=== PATIENT | female | born 1935 | race Caucasian/White ===

== ENCOUNTER 2019-08-23 12:16 | Inpatient (IN) | payer OTHER, SELFPAY ==
[2019-08-23] VITALS (8 sets, daily range): BP systolic 118–172; BP diastolic 65–90; PULSE 58–72; RESP 12–22; TEMP 36.5–36.7; O2SAT 94–100; BMI 26.1
--- NOTE | ~2019-08-23 | XR_ITS ---
EXAMINATION: XR chest 1V portable DATE: 08/26/2019 12:44 INDICATION: Decreased oxygen saturation. TECHNIQUE: A single frontal view of the chest was obtained. COMPARISON: Chest single view 08/23/2019, CT abdomen and pelvis 08/25/2019 FINDINGS: There are small pleural effusions. There is mild atelectasis at the lung bases. No pneumoth orax. The heart size is normal. There is a small hiatal hernia. There are changes of vertebroplasty a t T12. IMPRESSION: 1. Small pleural effusions. 2. Mild atelectasis at the lung bases. 3. Small hiatal hernia. Reviewed, dictated and finalized at location A.
--- NOTE | ~2019-08-23 | XR_ITS ---
EXAMINATION: XR chest 1V portable EXAM DATE: 08/23/2019 22:45 INDICATION: Left hip fracture. Preoperative. TECHNIQUE: Portable AP frontal chest x-ray was obtained. Comparison is made to prior examination from 02/02/2019. FINDINGS: Patient is rotated to the right. The lungs are clear. There are no pleural effusions. Car diac silhouette is prominent but magnified on this AP technique. There is no pneumothorax suspected . Apparent spine curvature at least partly positional. IMPRESSION: No acute cardiopulmonary findings. Reviewed, dictated and finalized at location A.
--- NOTE | ~2019-08-23 | XR_ITS ---
EXAMINATION: XR hip LT 2V w AP pelvis DATE: 08/23/2019 12:57 INDICATION: Left hip pain. TECHNIQUE: An anteroposterior view of the pelvis and 2 views of left hip were obtained. COMPARISON: Hip radiographs 03/31/2014 FINDINGS: There is dextroscoliosis and severe spondylosis of lumbar spine. There are changes of verte broplasty at T12. There is a subcapital fracture of left femoral neck. The distal fracture fragment d emonstrates 30 degrees varus angulation, 1.5 cm shortening, and 10 mm anterior displacement. There is moderate osteoarthritis of the hips. IMPRESSION: 1. Acute subcapital fracture of left femoral neck. 2. Moderate osteoarthritis of the hips. Reviewed, dictated and finalized at location A.
--- NOTE | ~2019-08-23 | XR_ITS ---
XR lumbar spine 2-3V DATE: 08/23/2019 12:58 INDICATION: Injury, pain TECHNIQUE: AP, crosstable lateral views COMPARISON: 11/21/2014 lumbar spine 05/25/2018 lumbar spine radiographs are not available from PACS at this time. 06/01/2018 MRI lumbar spine FINDINGS: Diffuse severe osteopenia. Rotatory dextroscoliosis of the lumbar spine. Again noted is stable mild anterior wedge compression fracture deformity of T11. Again noted is severe burst fracture deformity of T12 with vertebroplasty. Degenerative disc disease is again noted at multiple levels. Grade 1 anterolisthesis is again noted at L5-S1. Since 06/01/2018 there is moderately prominent anterior wedge compression fracture deformity of L1. The sacroiliac joints are unremarkable. IMPRESSION: New anterior wedge compression fracture deformity of L1 since 06/01/2018 Stable compression fracture deformity of T11 Chronic burst fracture of T12, with vertebroplasty Diffuse severe osteopenia Rotatory dextroscoliosis of the lumbar spine Reviewed, dictated and finalized at location A. IMPRESSION: New anterior wedge compression fracture deformity of L1 since 019 Stable compression fracture deformity of T11 Chronic burst fracture of T12, with vertebroplasty Diffuse severe osteopenia Rotatory dextroscoliosis of the lumbar spine
--- NOTE | ~2019-08-23 | CT_ITS ---
EXAMINATION: CT abdomen pelvis wo con DATE: 08/25/2019 01:32 INDICATION: Left upper quadrant pain after traumatic fall TECHNIQUE: Computed tomography (CT) of the abdomen and pelvis was performed without intravenous contr ast. The dose-length product was 863.21 mGy-cm. Automated exposure control and iterative reconstructi on technique were employed. COMPARISON: CT dated 08/16/2018 FINDINGS: There is bilateral lower lobe atelectasis/scarring. Small right pleural effusion. Cardiomeg florentino. Atherosclerosis. Moderate size hiatal hernia. There is dependent high density material in the gallbladder which may represent sludge or stones. The re is a Ordaz catheter in the bladder which is collapsed. There is a left total hip arthroplasty. Sta ble vertebroplasty changes of T12 with extrusion of methacrylate into the spinal canal. Advanced dege nerative changes of the lumbar spine with interval development of L1 superior endplate fracture. Nono bstructive bowel gas pattern. Nonobstructing stone in the left renal pelvis. No significant hydroneph rosis. No abnormal pelvic masses or fluid collections. Moderate colonic fecal loading. The liver, spl een, pancreas, adrenal glands unremarkable. IMPRESSION: 1. Interval development of superior endplate fracture of L1 or examination. 2: Bilateral lower lobe atelectasis/scarring with small right effusion. 3: High density material in the gallbladder which may represent sludge or stones. 4: Nonobstructing left nephrolithiasis. 5: Moderate size hiatal hernia. Vision radiologist verbally discussed this case with clinician as per documentation in their report, which was faxed and scanned into PACS with this exam. Reviewed, dictated and finalized at location A. IMPRESSION: 1. Interval development of superior endplate fracture of L1 or examinat ion. 2: Bilateral lower lobe atelectasis/scarring with small right effusion. 3: High density material in the gallbladder which may represent sludge or stone s. 4: Nonobstructing left nephrolithiasis. 5: Moderate size hiatal hernia. Vision radiologist verbally discussed this case with clinician as per documenta tion in their report, which was faxed and scanned into PACS with this exam.
--- NOTE | ~2019-08-23 | XR_ITS ---
EXAMINATION: XR hip LT 1V DATE: 08/24/2019 13:42 INDICATION: Left hip arthroplasty TECHNIQUE: AP views left hip FINDINGS: There is a left bipolar hip arthroplasty in expected position. Subcutaneous gas with soft tissue swelling are consistent with recent surgery. IMPRESSION: 1. Recent left bipolar hip arthroplasty. Reviewed, dictated and finalized at location A.
--- NOTE | ~2019-08-23 | CT_ITS ---
EXAMINATION: CT brain wo con DATE: 08/23/2019 12:46 INDICATION: Head injury. TECHNIQUE: Computed tomography (CT) of the head was performed without intravenous contrast. The mA wa s adjusted according to patient size. Iterative reconstruction technique was employed. The dose-lengt h product was 681.00 mGy-cm. COMPARISON: Head CT 10/24/2014 FINDINGS: There are scattered areas of low attenuation in the cerebral white matter. There is no intr acranial hemorrhage, acute infarction, or abnormal intracranial mass lesion. The ventricles are malika l in size. There is mild mucosal thickening in the paranasal sinuses. There are likely changes of ocu lar lens replacement surgeries. The mastoid air cells are normal. IMPRESSION: 1. Worsened extensive nonspecific cerebral white matter disease, which likely represents chronic smal l vessel ischemic disease. Reviewed, dictated and finalized at location A. IMPRESSION: 1. Worsened extensive nonspecific cerebral white matter disease, which likely r epresents chronic small vessel ischemic disease.
--- NOTE | ~2019-08-23 | CT_ITS ---
EXAMINATION: CT facial bones wo con DATE: 08/25/2019 01:32 INDICATION: Face injury. TECHNIQUE: Computed tomography (CT) of the facial bones and maxillofacial region was performed withou t intravenous contrast. Automated exposure control and iterative reconstruction technique were employ ed. The dose-length product was 319.32 mGy-cm. COMPARISON: Head CT 08/23/2019 FINDINGS: There are likely changes of ocular lens replacement surgeries. There is mild mucosal thicke alesia in sphenoid sinus and the maxillary sinuses. There is kyphosis and severe spondylosis of cervica l spine. There is leftward deviation of the nasal septum. No fracture. IMPRESSION: 1. No fracture. Reviewed, dictated and finalized at location A. IMPRESSION: 1. No fracture.
--- NOTE | ~2019-08-23 | CT_ITS ---
EXAMINATION: CT cervical spine wo con DATE: 08/23/2019 12:46 INDICATION: Head injury. TECHNIQUE: Computed tomography (CT) of the cervical spine was performed without intravenous contrast. Automated exposure control and iterative reconstruction technique were employed. The dose-length pro duct was 133.60 mGy-cm. COMPARISON: Cervical spine CT 10/24/2014 FINDINGS: There is kyphosis of cervical spine. There is 3 mm anterolisthesis of C3 on C4 and C4 on C5 . Vertebral body heights are normal. There is mildly decreased disc height at C2-C3 and C3-C4 and sev erely decreased disc height from C4-C5 through C6-C7. The following disc levels are specifically disc ussed: C2-C3: There is no uncovertebral joint osteoarthritis. There is moderate right and severe left facet joint osteoarthritis. There is mild left neural foraminal stenosis. There is no central canal stenosi s. C3-C4: There is mild right uncovertebral joint osteoarthritis. There is ankylosis of the facet joints with mild hypertrophy. There is no neural foraminal stenosis. There is no central canal stenosis. C4-C5: There is severe bilateral uncovertebral joint osteoarthritis. There is severe right and modera te left facet joint osteoarthritis. There is mild bilateral neural foraminal stenosis. There is mild central canal stenosis. C5-C6: There is severe bilateral uncovertebral joint osteoarthritis. There is mild right and severe l eft facet joint osteoarthritis. There is moderate right and mild left neural foraminal stenosis. Ther e is mild central canal stenosis. C6-C7: There is severe bilateral uncovertebral joint osteoarthritis. There is mild bilateral facet miles int osteoarthritis. There is mild right and moderate left neural foraminal stenosis. There is mild ce ntral canal stenosis. C7-T1: There is no uncovertebral joint osteoarthritis. There is moderate right and severe left facet joint osteoarthritis. There is no neural foraminal stenosis. There is no central canal stenosis. IMPRESSION: 1. No fracture. 2. Severe cervical spondylosis. Reviewed, dictated and finalized at location A.
[2019-08-23] MEDS: MORPHINE SULFATE 4 MG/ML INJ IV PUSH ×2 (12:31→20:56)
[2019-08-23 12:39] LABS: Basophils Percent Auto 0.1 % (0.2-1.2); Eosinophils Absolute Auto 0.1 K/mm3 (0-0.3); Eosinophils Percent Auto 0.9 % (0-4.4); Hematocrit 42.2 % (37.0-47.0); Hemoglobin 13.9 g/dL (12.0-15.0); Immature Granulocyte Absolute 0.03 K/mm3 (0.00-0.031); Immature Granulocyte Percent A 0.4 % (0-0.5); Lymphocytes Absolute Auto 1.32 K/mm3 (0.9-3.2); Lymphocytes Percent Auto 19.1 % (18.3-44.2); Mean Corpuscular HGB Conc 32.9 g/dl (32-36); Mean Corpuscular Hemoglobin 29.9 pg (26-34); Mean Corpuscular Volume 90.8 fl (80-100); Mean Platelet Volume 9.1 fl (7.4-10.4); Monocytes Absolute Auto 0.5 K/mm3 (0.1-0.6); Monocytes Percent Auto 7.8 % (2.6-8.5); Neutrophils Percent Auto 71.7 % (45.5-73.1); Platelet Count Result 248 k/mm3 (150-375); Red Blood Count 4.65 M/mm3 (4.2-5.4); Red Cell Distribution Width 13.5 % (11.5-14.5); White Blood Count 6.9 K/mm3 (4.5-10.0)
--- NOTE | 2019-08-23 12:47 | ECG_ITS ---
Measurements Intervals [place] Rate: 63 P: 67 AL: 170 QRS: -36 QRSD: 106 T: 64 QT: 405 QTc: 415 Interpretive Statements SINUS RHYTHM LEFT AXIS DEVIATION POOR R WAVE PROGRESSION, ANTERIOR LEADS BORDERLINE ST-T WAVE ABNORMALITY- ANTEROLAT/LAT LEADS BASELINE ARTIFACT- I, II, III, AVR, AVL, AVF BORDERLINE ECG Electronically Signed On 08-23-2019 16:21:52 CDT by Israel Martinez D.O.
[2019-08-23 12:54] LABS: Blood Urea Nitrogen 17 mg/dL (7-17); Carbon Dioxide 33 mmol/L (22-30); Chloride 93 mmol/L (98-107); Estimated CRCL calculation 55 ml/min; Estimated Glomerular Filt Rate > 60; Glucose 134 mg/dL (65-105); Potassium 3.8 mmol/L (3.4-5.0); Sodium 133 mmol/L (137-145)
[2019-08-23 14:09] LABS: Add Urine Microscopic? NO; Appearance Urine Clear (Clear); Bilirubin Urine Negative (Negative); Blood Urine Negative (Negative); Color Urine Yellow (Yellow); Glucose Urine UA Negative (Negative); Ketones Urine Negative (Negative); Leukocyte Esterase Ur Negative LEU/UL (Negative); Nitrate Urine Negative (Negative); Protein Urine Negative (Negative); Specific Grav Ur 1.008 (1.001-1.035); Urobilinogen Urine Negative mg/dL (<2.0)
--- NOTE | 2019-08-23 14:10 | ED.GENADULT ---
HPI - General Adult General Chief complaint: Fall Stated complaint: Fall - Left hip pain Time Seen by Provider: 08/23/19 12:25 History of Present Illness HPI narrative: Patient is an 83-year-old female who presents ER status post fall. Patient reports she just lost her balance when she fell down backwards landing on her hip and striking her head. She did not lose consciousness. She is in a c-collar. Patient cannot move her lower extremity without significant pain. She has no new numbness or tingling in her lower extremities since the fall. She does have an increase in low back pain. She has history of chronic back pain for which she takes morphine. No incontinence or saddle anesthesia. Related Data Home Medications Medication Instructions Recorded Confirmed amlodipine 10 mg PO DAILY 08/23/19 calcium carb-vit D3-magnesium 08/23/19 carboxymethylcellulose-glycern drp 08/23/19 [Refresh Optive] cyclosporine [Restasis] 08/23/19 fish [id number] C-vit E 08/23/19 fluticasone propionate [Flonase 1 spray INTRANASAL DAILY 08/23/19 08/23/19 Allergy Relief] furosemide 20 mg PO BID 08/23/19 levothyroxine 75 mcg PO DAILY 08/23/19 losartan 100 mg PO DAILY 08/23/19 magnesium hydroxide 15 ml PO HS PRN 08/23/19 metolazone 5 mg PO DAILY 08/23/19 metoprolol tartrate 50 mg PO Q12H 08/23/19 morphine 30 mg PO Q12H 08/23/19 pantoprazole 40 mg PO QAM 08/23/19 08/23/19 prednisone 10 mg PO DAILY 08/23/19 08/23/19 trifluoperazine 2 mg PO DAILY 08/23/19 08/23/19 vit A,C and K-wjdpap-zewngwxf 1 tablet PO DAILY 08/23/19 08/23/19 [Ocuvite with Lutein] Allergies Allergy/AdvReac Type Severity Reaction Status Date / Time No Known Allergies Allergy Unverified 08/16/18 12:09 Review of Systems Review of Systems: All systems reviewed & are unremarkable except as noted in HPI and below Constitutional: Constitutional: Denies chills, Denies fever(s) and Denies weakness Respiratory: Respiratory: Denies cough, Denies dyspnea and Denies wheezing Gastrointestinal: Gastrointestinal: Denies abdominal pain, Denies nausea and Denies vomiting Musculoskeletal: Musculoskeletal: Reports back pain and Reports arthralgias (Left hip) Neurologic: Denies numbness and Denies weakness PMFSH Past Medical History Medical History (Updated 08/23/19 @ 15:31 by Sam Rust MD) B-cell lymphoma Chronic back pain GERD (gastroesophageal reflux disease) Hypertension Hypothyroidism Surgical History Surgical History (Updated 08/23/19 @ 15:29 by Sam Rust MD) H/O hemorrhoidectomy H/O kyphoplasty History of tonsillectomy S/P total hysterectomy and BSO (bilateral salpingo-oophorectomy) Family History Family History (Updated 12/23/13 @ 07:13 by DOCTOR UNKNOWN) Father Family history of pulmonary embolism Other Cerebrovascular accident Family history of arthritis Family history of blood dyscrasia Family history of cardiovascular disease Hypertension Social History Social History Smoking status: Never smoker Alcohol intake: never Exam Narrative: Exam Narrative: GENERAL: Well-appearing, well-nourished, and in no acute distress. HEAD: Normocephalic, atraumatic. ENT: Mucous membranes moist. NECK: Supple. C-spine immobilized without midline tenderness. CHEST: Clear to auscultation. No respiratory distress. HEART: Regular rate and rhythm. Normal peripheral pulses. ABDOMEN: Soft, nontender, nondistended. EXTREMITIES: Limited range of motion left lower extremity due to pain at the left hip. LLE shortened and externally rotated. Neurovascular intact. SKIN: Warm, dry, no rash. NEURO: No focal deficits. Alert and oriented x3. Course Reevaluation(s) Reevaluation #1: Discussed with Dr. Mai, will see in consultation. Admit to hospitalist Date: 08/23/19 Time: 14:10 Vital Signs Vital signs: Vital Signs Temperature 97.7 F 08/23/19 12:17 Pulse Rate 68 08/23/19 12:17 Respiratory Rate 22
--- NOTE | 2019-08-23 15:21 | PC.NURSE ---
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
[2019-08-23] MEDS: MORPHINE SULFATE 2 MG/ML INJ IV PUSH (15:24)
--- NOTE | 2019-08-23 17:15 | WPDANESEPP ---
Anes - Eval Pre Procedure Procedure: Left hip bipolar Date/Time: 08/23/19 17:15 Surgeon: Garfield Preop Diagnosis: Left hip fracture Pre Op Diagnosis: hip fracture/L1 compressure fracture Patient Data Age: 83 Gender: F Height: 5 ft 3 in Weight: 66.8 kg Last Vital Signs Temp 97.7 F 08/23/19 12:17 Pulse 61 08/23/19 15:54 Resp 15 08/23/19 15:54 BP 140/67 08/23/19 15:54 Pulse Ox 99 08/23/19 15:54 Allergies Allergy/AdvReac Type Severity Reaction Status Date / Time No Known Allergies Allergy Unverified 08/16/18 12:09 Home Medications Medication Instructions Recorded Confirmed Type amlodipine 10 mg PO DAILY 08/23/19 08/23/19 History calcium carbonate-vitamin D3 1 tablet PO DAILY 08/23/19 08/23/19 History [Caltrate 600 plus D] furosemide 40 mg PO DAILY 08/23/19 08/23/19 History levothyroxine 75 mcg PO DAILY 08/23/19 08/23/19 History losartan 100 mg PO DAILY 08/23/19 08/23/19 History magnesium hydroxide 30 ml PO DAILY PRN 08/23/19 08/23/19 History metolazone 5 mg PO EVERY OTHER DAY 08/23/19 08/23/19 History metoprolol tartrate 50 mg PO Q12H 08/23/19 08/23/19 History morphine [MS Contin] 30 mg PO Q12H 08/23/19 08/23/19 History omega-3 fatty acids 1,000 mg PO DAILY 08/23/19 08/23/19 History pantoprazole 40 mg PO QAM 08/23/19 08/23/19 History polyethylene glycol 3350 [Miralax] 17 g PO DAILY 08/23/19 08/23/19 History trifluoperazine 2 mg PO DAILY 08/23/19 08/23/19 History vit A,C and B-vsxzsb-cgxzahwu 1 tablet PO DAILY 08/23/19 08/23/19 History [Ocuvite with Lutein] Laboratory Tests 08/23/19 08/23/19 08/23/19 12:32 12:32 14:02 WBC 6.9 K/mm3 K/mm3 (4.5-10.0) RBC 4.65 M/mm3 M/mm3 (4.2-5.4) Hgb 13.9 g/dL g/dL (12.0-15.0) Hct 42.2 % % (37.0-47.0) MCV 90.8 fl fl (80-100) MCH 29.9 pg pg (26-34) MCHC 32.9 g/dl g/dl (32-36) RDW 13.5 % % (11.5-14.5) Plt Count 248 k/mm3 k/mm3 (150-375) MPV 9.1 fl fl (7.4-10.4) Immature Gran % (Auto) 0.4 % % (0-0.5) Neut % (Auto) 71.7 % % (45.5-73.1) Lymph % (Auto) 19.1 % % (18.3-44.2) Schley % (Auto) 7.8 % % (2.6-8.5) Eos % (Auto) 0.9 % % (0-4.4) Baso % (Auto) 0.1 % L % (0.2-1.2) Lymph # (Auto) 1.32 K/mm3 K/mm3 (0.9-3.2) Schley # (Auto) 0.5 K/mm3 K/mm3 (0.1-0.6) Eos # (Auto) 0.1 K/mm3 K/mm3 (0-0.3) Baso # (Auto) 0.0 K/mm3 K/mm3 (0.0-0.1) Abs Immat Gran (auto) 0.03 K/mm3 K/mm3 (0.00-0.031) Absolute Neuts (auto) 5.0 K/mm3 K/mm3 (1.3-6.7) Absolute Nucleated RBC 0.0 K/mm3 K/mm3 (0.0-0.012) Nucleated RBC % 0.0 % % (0.0-0.2) Sodium 133 mmol/L L mmol/L (137-145) Potassium 3.8 mmol/L mmol/L (3.4-5.0) Chloride 93 mmol/L L mmol/L (98-107) Carbon Dioxide 33 mmol/L H mmol/L (22-30) BUN 17 mg/dL mg/dL (7-17) Creatinine 0.60 mg/dL L mg/dL (0.7-1.0) Estim Creat Clear Calc 55 ml/min ml/min Estimated GFR > 60 (59 - ) Glucose 134 mg/dL H mg/dL (65-105) Calcium 10.0 mg/dL mg/dL (8.4-10.2) Urine Color Yellow (Yellow) Urine Appearance Clear (Clear) Urine pH 7.0 (5.0-9.0) Ur Specific [place] 1.008 (1.001-1.035) Urine Protein Negative mg/dL mg/dL (Negative) Urine Glucose (UA) Negative mg/dL mg/dL (Negative) Urine Ketones Negative mg/dL mg/dL (Negative) Ur Blood (Man) Negative (Negative) Urine Nitrate Negative (Negative) Urine Bilirubin Negative (Negative) Urine Urobilinogen Negative mg/dL mg/dL (<2.0) Leukocyte Esterase Rfl Negative OLIVE/UL OLIVE/UL (Negative) Patient hx anesthesia problems: none Family hx anesthesia problems: none PMFSH Past Medi
--- NOTE | 2019-08-23 21:53 | PM.IMHP ---
H&P: HPI History of Present Illness Chief complaint: hip fracture/L1 compressure fracture Narrative: Haritha Howard is a 83 year old female who came to the emergency room after falling at home. The patient lives home alone but her daughter lives next door to her. The patient stated that she fell backwards and landed on her hip and hit her head. She did not lose consciousness. She was brought in in a C-collar. She could move her lower extremity without significant pain to the left side. Patient has chronic back pain and is on MS Contin. Head CT was read as worsen extensive nonspecific cerebral white matter disease, which likely represents chronic small vessel ischemic disease. Cervical spine CT no fracture. Severe cervical spondylosis. Hip x-ray acute subcapital fracture left femur neck moderate osteoarthritis of the hips. Lumbar x-ray diffuse severe osteopenia. Stable compression fracture deformity of T11. Chronic burst fracture of T12 with vertebroplasty. The patient was given morphine in the emergency room. Ortho surgeon has been consulted. And has discussed the plan with the patient. She tells me that a partial hip replacement will be planned for tomorrow. Date of service 08/23/2019 Review of Systems Review of Systems: Narrative: No fever no chills. No cough. She has chronic back pain. All systems reviewed & are unremarkable except as noted in HPI and below Constitutional: Constitutional: Reports as per HPI and Reports no additional constitutional complaints Eyes: Eyes: Reports as per HPI and Reports no additional eye complaints ENT: Reports system reviewed and no additional complaints, except as documented and Reports Normal hearing present Cardiovascular: Cardiovascular: Reports no additional cardiovascular complaints Respiratory: Respiratory: Reports no additional respiratory complaints and Reports no additional respiratory complaints Gastrointestinal: Gastrointestinal: Reports as per HPI and Reports no additional gastrointestinal complaints Musculoskeletal: Musculoskeletal: Reports no additional musculoskeletal complaints Integumentary/Breasts: Skin/Breast: Reports system reviewed and no additional complaints, except as docu and Reports as per HPI Neurologic: Reports system reviewed and no additional complaints, except as documented, Reports as per HPI and Reports Normal hearing present Psychiatric: Psychiatric: Reports no additional psychiatric complaints and Reports as per HPI Endocrine: Endocrine: Reports no additional endocrine complaints Hematologic/Lymphatic: Hematologic/Lymphatic: Reports no additional hematologic/lymphatic complaints Allergic/Immunologic: Allergic/Immunologic: Reports no additional allergic/immunologic complaints [facility] Past Medical History Medical History (Updated 08/23/19 @ 22:08 by Mala Kaplan NP) B-cell lymphoma Diagnosis agree with IV fluid biopsy. she was intolerate of radiation. 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 Chronic back pain Depression with anxiety Diverticulosis Eczema GERD (gastroesophageal reflux disease) Hypertension Hypothyroidism Osteopenia Surgical History Surgical History (Updated 08/23/19 @ 22:08 by Mala Kaplan NP) Cataract extraction status H/O hemorrhoidectomy H/O kyphoplasty July 2018 History of bladder suspension procedure History of surgical removal of skin lesion History of tonsillectomy S/P total hysterectomy and BSO (bilateral salpingo-oophorectomy) Family History Family History (Updated 08/23/19 @ 22:09 by Mala Kaplan NP) Father Family history of pulmonary embolism Diabetes mellitus Mother Heart failure Sibling Acute myocardial infarction Other Cerebrovascular accident Family history of arthritis Family history of blood dyscrasia Family history of cardiovascular disease Hypertension Social History
[2019-08-23] MEDS: METOPROLOL TARTRATE 50 MG TAB PO (22:15)
[2019-08-23] MEDS: MORPHINE SULFATE 30 MG TABCR PO (22:16)
[2019-08-24] VITALS (13 sets, daily range): BP systolic 124–180; BP diastolic 63–92; PULSE 58–81; RESP 12–18; TEMP 36.5–37.1; O2SAT 18–99
[2019-08-24] MEDS: MORPHINE SULFATE 4 MG/ML INJ IV PUSH ×3 (02:27→15:54)
[2019-08-24] MEDS: LEVOTHYROXINE SODIUM 75 MCG TABLET PO (05:42)
[2019-08-24 06:03] LABS: Basophils Percent Auto 0.2 % (0.2-1.2); Eosinophils Percent Auto 0.7 % (0-4.4); Hemoglobin 12.4 g/dL (12.0-15.0); Immature Granulocyte Absolute 0.03 K/mm3 (0.00-0.031); Immature Granulocyte Percent A 0.5 % (0-0.5); Lymphocytes Absolute Auto 1.01 K/mm3 (0.9-3.2); Lymphocytes Percent Auto 17.9 % (18.3-44.2); Mean Corpuscular HGB Conc 32.6 g/dl (32-36); Mean Corpuscular Hemoglobin 29.5 pg (26-34); Mean Corpuscular Volume 90.5 fl (80-100); Mean Platelet Volume 9.1 fl (7.4-10.4); Monocytes Absolute Auto 0.8 K/mm3 (0.1-0.6); Neutrophils Absolute Auto 3.8 K/mm3 (1.3-6.7); Neutrophils Percent Auto 66.7 % (45.5-73.1); Platelet Count Result 215 k/mm3 (150-375); Red Cell Distribution Width 13.3 % (11.5-14.5); White Blood Count 5.7 K/mm3 (4.5-10.0)
[2019-08-24 06:17] LABS: Alanine Aminotransferase 16 U/L (4-35); Alkaline Phosphatase 75 U/L (38-126); Aspartate Amino Transferase 25 U/L (14-36); Bilirubin,Total 0.9 mg/dL (0.2-1.3); Blood Urea Nitrogen 15 mg/dL (7-17); Carbon Dioxide 31 mmol/L (22-30); Chloride 92 mmol/L (98-107); Estimated CRCL calculation 43 ml/min; Estimated Glomerular Filt Rate > 60; Glucose 98 mg/dL (65-105); Potassium 3.4 mmol/L (3.4-5.0); Sodium 130 mmol/L (137-145)
[2019-08-24] MEDS: METOPROLOL TARTRATE 50 MG TAB PO (08:00)
[2019-08-24] MEDS: FLUTICASONE PROPIONATE 0.05% NA SPR 16 GM BTL (*BKC) 1 SPRAY NASAL (08:02)
[2019-08-24] MEDS: HYDROCORTISONE SODIUM SUCCINATE 100 MG/2 ML VIAL 50 MG IV PUSH (09:23)
--- NOTE | 2019-08-24 09:26 | PC.NURSE ---
pt to OR per bed.
[2019-08-24] MEDS: LACTATED RINGERS 1,000 ML 30 ML IV CONT ×2 (09:30→13:31)
--- NOTE | 2019-08-24 10:08 | WPDANESEPPF ---
Anes - Initial Pre Proc Eval Procedure: Operation Date: 08/24/19 10:30 Proposed Procedures p Left Bipolar Hip Replacement - Jerry Mai MD Date/Time: 08/24/19 10:08 Surgeon: Connie Hughes PA-C Pre Op Diagnosis: hip fracture/L1 compressure fracture Patient Data Age: 83 Gender: F Height: 5 ft 3 in Weight: 66.8 kg Last Vital Signs Temp 36.8 C 08/24/19 09:00 Pulse 59 L 08/24/19 09:00 Resp 18 08/24/19 09:00 BP 162/63 H 08/24/19 09:00 Pulse Ox 94 08/24/19 09:00 Allergies Allergy/AdvReac Type Severity Reaction Status Date / Time No Known Allergies Allergy Unverified 08/16/18 12:09 Home Medications Medication Instructions Recorded Confirmed Type amlodipine 10 mg PO DAILY 08/23/19 08/23/19 History calcium carbonate-vitamin D3 1 tablet PO DAILY 08/23/19 08/23/19 History [Caltrate 600 plus D] carboxymethylcellulose sodium 1 drp OPHTHALMIC (EYE) PRN PRN 08/23/19 08/23/19 History [Refresh Tears] cyclosporine [Restasis] 1 drp OPHTHALMIC (EYE) Q12H 08/23/19 08/23/19 History fluticasone propionate [Flonase 1 spray INTRANASAL DAILY 08/23/19 08/23/19 History Allergy Relief] furosemide 40 mg PO DAILY 08/23/19 08/23/19 History levothyroxine 75 mcg PO DAILY 08/23/19 08/23/19 History losartan 100 mg PO DAILY 08/23/19 08/23/19 History magnesium hydroxide 30 ml PO DAILY PRN 08/23/19 08/23/19 History metolazone 5 mg PO EVERY OTHER DAY 08/23/19 08/23/19 History metoprolol tartrate 50 mg PO Q12H 08/23/19 08/23/19 History morphine [MS Contin] 30 mg PO Q12H 08/23/19 08/23/19 History omega-3 fatty acids 1,000 mg PO DAILY 08/23/19 08/23/19 History pantoprazole 40 mg PO QAM 08/23/19 08/23/19 History polyethylene glycol 3350 [Miralax] 17 g PO DAILY 08/23/19 08/23/19 History prednisone 10 mg PO DAILY 08/23/19 08/23/19 History trifluoperazine 2 mg PO DAILY 08/23/19 08/23/19 History vit A,C and O-cdalwl-nygorxkd 1 tablet PO DAILY 08/23/19 08/23/19 History [Ocuvite with Lutein] Laboratory Tests 08/23/19 08/23/19 08/23/19 12:32 12:32 14:02 WBC 6.9 K/mm3 K/mm3 (4.5-10.0) RBC 4.65 M/mm3 M/mm3 (4.2-5.4) Hgb 13.9 g/dL g/dL (12.0-15.0) Hct 42.2 % % (37.0-47.0) MCV 90.8 fl fl (80-100) MCH 29.9 pg pg (26-34) MCHC 32.9 g/dl g/dl (32-36) RDW 13.5 % % (11.5-14.5) Plt Count 248 k/mm3 k/mm3 (150-375) MPV 9.1 fl fl (7.4-10.4) Immature Gran % (Auto) 0.4 % % (0-0.5) Neut % (Auto) 71.7 % % (45.5-73.1) Lymph % (Auto) 19.1 % % (18.3-44.2) [place] % (Auto) 7.8 % % (2.6-8.5) Eos % (Auto) 0.9 % % (0-4.4) Baso % (Auto) 0.1 % L % (0.2-1.2) Lymph # (Auto) 1.32 K/mm3 K/mm3 (0.9-3.2) [place] # (Auto) 0.5 K/mm3 K/mm3 (0.1-0.6) Eos # (Auto) 0.1 K/mm3 K/mm3 (0-0.3) Baso # (Auto) 0.0 K/mm3 K/mm3 (0.0-0.1) Abs Immat Gran (auto) 0.03 K/mm3 K/mm3 (0.00-0.031) Absolute Neuts (auto) 5.0 K/mm3 K/mm3 (1.3-6.7) Absolute Nucleated RBC 0.0 K/mm3 K/mm3 (0.0-0.012) Nucleated RBC % 0.0 % % (0.0-0.2) Sodium 133 mmol/L L mmol/L (137-145) Potassium 3.8 mmol/L mmol/L (3.4-5.0) Chloride 93 mmol/L L mmol/L (98-107) Carbon Dioxide 33 mmol/L H mmol/L (22-30) BUN 17 mg/dL mg/dL (7-17) Creatinine 0.60 mg/dL L mg/dL (0.7-1.0) Estim Creat Clear Calc 55 ml/min ml/min Estimated GFR > 60 (59 - ) Glucose 134 mg/dL H mg/dL (65-105) Calcium 10.0 mg/dL mg/dL (8.4-10.2) Magnesium Total Bilirubin AST ALT Alkaline Phosphatase Total Protein Albumin TSH (Reflex) Urine Color Yellow (Yellow) Urine Appearance Clear (Clear) Urine pH 7.0
[2019-08-24] MEDS: ceFAZolin 2 GM/D5W 50 ML 2 GM/50 ML BAG IVPB ×2 (11:33→19:48)
--- NOTE | 2019-08-24 13:47 | SUR.PHASEI ---
1343 rADIOLOGY AT BEDSIDE FOR XRAY OF LT HIP
--- NOTE | 2019-08-24 13:55 | HP_ITS ---
DATE OF SERVICE: 08/24/2019 HISTORY OF PRESENT ILLNESS: This is an 83-year-old female who presented to the emergency department after she fell on her left side. She was complaining of low back pain and left hip pain. She was diagnosed with a left femoral neck fracture, which was displaced and a L1 compression fracture. She was sent to the orthopedic floor and she was seen by medical services and she was cleared by Medicine. She has no other complaints aside from the above mention. She denies any right hip pain. Denies any other neck pain or any other back pain aside from the low back pain. Denies any upper extremity pain as well. PAST MEDICAL HISTORY: B-cell lymphoma, back pain, depression, diverticulosis, eczema, hypertension, hypothyroidism, osteopenia. SURGICAL HISTORY: Cataract excision, bladder suspension, removal of skin lesions, tonsillectomy, total hysterectomy. REVIEW OF SYSTEMS: She denies any chest pain, any shortness of breath. Denies any fever, any chills. Denies any blurry vision. Denies any other problems with swallowing. She complains of a recent nosebleed. Denies any shortness of breath, any chest pain, any GI discomfort, any nausea or vomiting. Complains of left hip pain. Denies any dizziness or any loss of consciousness. ALLERGIES: NO KNOWN ALLERGIES. MEDICATIONS: 1. Amlodipine. 2. Carboxymethylcellulose drops. 3. Cyclosporine. 4. Fluticasone. 5. Furosemide. 6. Levothyroxine. 7. Losartan. 8. Magnesium. 9. Metolazone. 10. Metoprolol. 11. Morphine. 12. MS Contin. 13. [place]-3 fatty acid pills. 14. Pantoprazole. 15. Polyethylene glycol, also known as MiraLAX. 16. Prednisone. 17. Trifluoperazine. 18. Vitamins. SOCIAL HISTORY: Does not smoke. Does not take alcohol. Does not have any substance abuse problems. She lives on her own. PHYSICAL EXAMINATION: The left hip was examined first. She has severe pain with gentle passive motion of the left hip. The thigh is nontender. The knee is nontender. The tib-fib, foot and ankle are nontender. There is no sign of deformity. She has no calf tenderness. She has a negative Homans sign. She is able to dorsi and plantar flex the left foot without any difficulty. Her distal pulses are 2+, posterior tib 2+ dorsalis pedis. Sensations intact all dermatomes. The right hip was examined. She has no pain with passive or active range of motion of the hip. She is able to perform a straight leg raise with some pain in the back when she does this, but not a lot. She has both good flexion/extension of the knee, dorsi and plantar flex the foot with 5/5 strength. The thigh is nontender. The knee is nontender. There is no instability. There is no effusion. The tib-fib, foot and ankle are nontender. Dorsalis pedis pulse 2+, posterior tib pulse 2+. Sensations intact in all dermatomes. Strength is 5/5 motor. Patellar tendon reflexes 2+, Achilles tendon reflexes 2+. The upper extremity examination shows that she elevates bilateral upper extremities with no pain. She has no tenderness in the clavicle, shoulders, arms, elbows, forearms, wrist, and hand bilaterally. The neck is nontender. The thoracic spine is nontender. She has tenderness over the mid low back region. She has no tenderness in the sacrococcygeal region or in the sacroiliac region. ASSESSMENT AND PLAN: X-rays show a displaced left femoral neck fracture and also a L1 compression fracture. She also has other multiple healed fractures in the low spine and the lumbar spine. Plan is for hemiarthroplasty of the left hip and conservative management for the compression fracture. She may need a corset or some type of TLSO for that. She ambulates if she is in a lot of discomfort. We discussed the risks and potential complications of surg
--- NOTE | 2019-08-24 13:56 | PM.IMPN ---
Progress Note: A&P Assessment and Plan (1) Subcapital fracture of left hip: Qualifiers: Encounter type: initial encounter Fracture type: closed Qualified Code(s): S72.012A - Unspecified intracapsular fracture of left femur, initial encounter for closed fracture Code(s): S72.012A - Unspecified intracapsular fracture of left femur, initial encounter for closed fracture Status: Acute Assessment and Plan: -----hemiarthroplasty completed 08/24/19 with no immediate complications. Will continue to monitor symptoms such as pain. Anticoagulation per ortho. The patient takes 10 mg of prednisone daily. We will stress dose her 25 mg q.8 hours times 24 hours and then return to her normal dose. It appears that the fall was a mechanical fall and we will continue PT and OT. She lives alone and may need rehab services (2) Chronic back pain: Code(s): M54.9 - Dorsalgia, unspecified; G89.29 - Other chronic pain Status: Chronic Assessment and Plan: -----now with anterior wedge compression fracture with some chronic fractures as well. Ortho on board. New MS Contin and p.r.n. morphine. (3) Hypertension: Code(s): I10 - Essential (primary) hypertension Status: Chronic Assessment and Plan: -----last blood pressure 146/71. Continue with her amlodipine, losartan and metoprolol. Monitor BMP closely. (4) Eczema: Code(s): L30.9 - Dermatitis, unspecified Status: Chronic Assessment and Plan: -----Patient is on low-dose prednisone for this. See above (5) Depression with anxiety: Code(s): F41.8 - Other specified anxiety disorders Status: Chronic Assessment and Plan: Continue with Stelazine (6) Hypothyroidism: Code(s): E03.9 - Hypothyroidism, unspecified Status: Chronic Assessment and Plan: -----TSH within normal limits. No additional adjustments needed. Additional Plan From the previous provider- Lymphoma. Patient was supposed to go through several rounds of radiation but the patient only tolerated to she decided she was not going to take any further treatment. On exam the patient had ecchymosis of the left eye and pain in the left upper quadrant. For this reason we will image these areas to ensure no splenic laceration or orbital fracture. Hemoglobin stable Time Spent With Patient Time with patient: 25 - 35 minutes Subjective Date/time seen: 08/24/19 13:56 Interval history: Pt is a 83-year-old female here for hip fracture. Patient was seen today and PACU and had some complaints of pain. She was in an out of consciousness but had no other complaints. I spoke to Dr. Merrill who said everything went well at this time. Review of Systems Review of Systems: All systems reviewed & are unremarkable except as noted in HPI and below Exam Narrative: Exam Narrative: General: Well developed well nourished patient resting comfortably in bed in no acute distress HEENT: normocephalic, ecchymosis around the left eye with pain to palpation. Able to move her eye in all directions. Neck: supple, some pain to palpation to the cervical spine Neuro: Alert but does not answer all questions, consistent with anesthesia. CV: Regular rate and rhythm Resp:CTA from anterior chest Abd: Soft, non distended. Some pain to palpation in the left upper quadrant. No ecchymosis noted in the area. Positive bowel sounds Extremities: Left leg without rotation or shortening. Bandage intact with no excessive bleeding, or discharge. Objective Data Vital Signs Vital Signs: Vital Signs - 24 hr 08/23/19 14:15 08/23/19 15:15 08/23/19 15:54 Temperature Pulse Rate 59 L 58 L 61 Respiratory Rate 14 12 15 Blood Pressure 133/67 118/72 140/67 Pulse Oximetry 100 98 99 08/23/19 16:15 08/23/19 21:56 08/23/19 22:15 Temperature 98.0 F 98.1 F Pulse Rate 66 72 72 Respiratory Rate 18 20 Blood Pressure 160/76 H 1
--- NOTE | 2019-08-24 14:05 | OP_ITS ---
DATE OF PROCEDURE: 08/24/2019 PREOPERATIVE DIAGNOSIS: Left femoral neck fracture. POSTOPERATIVE DIAGNOSIS: Left femoral neck fracture. PROCEDURE PERFORMED: Left hip hemiarthroplasty. SURGEON: Jerry Mai MD. ANESTHESIA: General. COMPLICATIONS: None. INDICATIONS: This is an 83-year-old female who fell and sustained a displaced left femoral neck fracture. She was indicated for left hip hemiarthroplasty. DESCRIPTION OF PROCEDURE: The patient was taken to the operating room in stable condition, supine position. General anesthesia was induced and she was placed in lateral decubitus and the left lower extremity was prepped and draped sterilely from the toes to the iliac crest region. Incision was made in the posterior lateral region of the hip, down to the subcutaneous tissues and through the fascia. The bleeders were cauterized. The piriformis tendon was identified. The gluteus medius and minimus were retracted. Incision was made from the piriformis tendon and then through the capsule. There was fresh hematoma coming from the capsule. Dissection continued until the short external rotators were incised. The hip was placed in the internal rotation and an osteotomy was performed about 1 cm proximal to the lesser trochanter. The femoral head was removed as well and it measured approximately 48 mm. Once that was performed, then preparation of the femoral canal was done first with a canal finer and then with sequential reaming until a #10 reamer and then sequential broaching until a #9 broach and approximately 15 degrees of anteversion was placed. A +0 standard neck with a 48 mm shell trial was placed on the femoral trial. The hip was relocated, taken through range of motion, was found to be very stable. There was a good Shuck test. The leg lengths were grossly equal. The trial prosthesis was removed and then a Biomet press-fit fracture stem was tapped into place in approximately 15 degrees of anteversion. The fit was excellent and it bottomed out well. The hip was trialed once again with a standard +0 and a 48 mm shell. This was then taken through range of motion, found to be very stable. There was no instability. The leg lengths were grossly equal and the Shuck test was excellent. The trial instrumentation was removed once again and then a +0 on 48 shell Biomet bipolar was tapped onto the stem. The hip was reduced, taken through range of motion once again and found to be in good position with good stability. The Shuck test showed that there was good tension. The leg lengths were grossly equal. The wound was irrigated thoroughly, then the short external rotators, the piriformis and the capsule were then all approximated with #1 Vicryl. The fascia was approximated with #2 Quill, subcutaneous with 2-0 Vicryl and the skin with 3-0 Quill and a subcuticular stitch, and then Dermabond was placed. Sterile dressing was applied. The patient was placed back in the supine position. She was extubated and sent to Recovery. [employer] MT: Devin
--- NOTE | 2019-08-24 15:19 | PC.NURSE ---
pt returns to room.
[2019-08-24] MEDS: ONDANSETRON INJ 4 MG/2 ML VIAL IV PUSH (15:53)
--- NOTE | 2019-08-24 16:40 | PC.NURSE ---
spoke with daughter Annie and updated family on patient's current condition.
[2019-08-24] MEDS: TRIFLUOPERAZINE HCL 1 MG TABLET 2 MG PO (17:06)
[2019-08-24] MEDS: PANTOPRAZOLE 40 MG TABLET PO (17:07)
[2019-08-24] MEDS: OMEGA 3 POLYUNSAT FATTY ACIDS 1 GM CAP PO (17:07)
[2019-08-24] MEDS: predniSONE 10 MG TABLET PO (17:07)
[2019-08-24] MEDS: OPTI-GEN TAB 1 TABLET PO (17:07)
[2019-08-24] MEDS: AMLODIPINE BESYLATE 5 MG TABLET 10 MG PO (17:08)
[2019-08-24] MEDS: HYDROCORTISONE SODIUM SUCCINATE 100 MG/2 ML VIAL 25 MG IV PUSH (17:09)
[2019-08-24] MEDS: LOSARTAN POTASSIUM 100 MG TABLET PO (17:09)
[2019-08-24] MEDS: SODIUM CHLORIDE 0.9% IV 1,000 ML 125 ML (17:12)
--- NOTE | 2019-08-24 17:13 | PC.NURSE ---
upon pt's return from OR, her new orders could not be verified by pharmacy due IT px. meds scanned and given as ordered.
--- NOTE | 2019-08-24 20:01 | PC.NURSE ---
Patient didn't receive colace due to being NPO.
[2019-08-24] MEDS: SODIUM CHLORIDE 0.9% IV 1,000 ML 125 ML IV CONT (20:03)
[2019-08-24] MEDS: MORPHINE SULFATE 4 MG/ML INJ 3 MG IV PUSH (21:25)
[2019-08-25] VITALS (7 sets, daily range): BP systolic 138–146; BP diastolic 63–80; PULSE 75–94; RESP 16–18; TEMP 36.4–37.5; O2SAT 89–96
[2019-08-25] MEDS: ceFAZolin 2 GM/D5W 50 ML 2 GM/50 ML BAG IVPB ×2 (02:58→09:14)
[2019-08-25 06:08] LABS: Basophils Percent Auto 0.1 % (0.2-1.2); Hematocrit 32.7 % (37.0-47.0); Hemoglobin 10.8 g/dL (12.0-15.0); Immature Granulocyte Absolute 0.02 K/mm3 (0.00-0.031); Immature Granulocyte Percent A 0.3 % (0-0.5); Lymphocytes Absolute Auto 0.75 K/mm3 (0.9-3.2); Lymphocytes Percent Auto 9.6 % (18.3-44.2); Mean Corpuscular Hemoglobin 29.4 pg (26-34); Mean Corpuscular Volume 89.1 fl (80-100); Mean Platelet Volume 9.2 fl (7.4-10.4); Monocytes Absolute Auto 1.1 K/mm3 (0.1-0.6); Monocytes Percent Auto 14.2 % (2.6-8.5); Neutrophils Percent Auto 75.8 % (45.5-73.1); Platelet Count Result 184 k/mm3 (150-375); Red Blood Count 3.67 M/mm3 (4.2-5.4); Red Cell Distribution Width 13.1 % (11.5-14.5); White Blood Count 7.8 K/mm3 (4.5-10.0)
[2019-08-25 06:15] LABS: Blood Urea Nitrogen 10 mg/dL (7-17); Calcium 8.7 mg/dL (8.4-10.2); Carbon Dioxide 28 mmol/L (22-30); Chloride 95 mmol/L (98-107); Estimated CRCL calculation 58 ml/min; Estimated Glomerular Filt Rate > 60; Glucose 132 mg/dL (65-105); Potassium 3.4 mmol/L (3.4-5.0); Sodium 130 mmol/L (137-145)
[2019-08-25 07:07] LABS: Vitamin D 25 Hydroxy 37.2 ng/mL
[2019-08-25] MEDS: FONDAPARINUX SODIUM 2.5 MG/0.5 ML SYRINGE SUB-Q (09:04)
[2019-08-25] MEDS: metOLazone 5 MG TABLET PO (09:05)
[2019-08-25] MEDS: FUROSEMIDE 40 MG TABLET PO (09:07)
[2019-08-25] MEDS: DOCUSATE SODIUM 100 MG CAPSULE PO ×2 (09:07→16:46)
--- NOTE | 2019-08-25 11:45 | PM.PNORT ---
Progress Note: A&P Assessment and Plan (1) Subcapital fracture of left hip: Qualifiers: Encounter type: initial encounter Fracture type: closed Qualified Code(s): S72.012A - Unspecified intracapsular fracture of left femur, initial encounter for closed fracture Code(s): S72.012A - Unspecified intracapsular fracture of left femur, initial encounter for closed fracture Status: Acute Assessment and Plan: Patient awake and alert, in no distress. Breathing non-labored. Left hip incision clean and dry. No signs of infection. No erythema. No drainage. Mild swelling. Good capillary refill in the toes. Good sensation to light touch. Has improved flexion and extension of the toes. Negative Homans sign. Postoperative day 1. Left hip bipolar. PT/OT for left hip hemiarthroplasty. TRC consult pending. Pain control. DVT prophylaxis. Will follow. Subjective Subjective Date/Time Seen: Patient awake and alert. Complains of minimal pain left hip. Denies numbness. Exam Const: General: healthy appearing; No in distress or confusion Orientation/consciousness: patient oriented x3 and No confusion HENMT: Head: normal to inspection, normocephalic and atraumatic Eyes: Conjunctivae: conjunctivae normal Sclera: sclerae normal Resp: Effort & Inspection: normal respiratory effort and no audible wheezes Neuro: General: patient oriented x3 and No confusion Extrem: Other: Left hip incision clean dry with dressing in place. Moderate left thigh swelling, muscle compartments soft. Able to move toes. Good sensation to touch throughout. Able to flex and extend ankle and toes. Palpable dorsalis pedis pulse and good capillary refill. Psych: Affect: normal affect Objective Data Vital Signs Vital Signs: Vital Signs - 24 hr 08/24/19 13:44 08/24/19 13:55 08/24/19 14:10 Temperature 98.4 F Pulse Rate 67 65 59 L Respiratory Rate 12 14 14 Blood Pressure 146/71 H 160/74 H 163/76 H Pulse Oximetry 96 97 98 08/24/19 14:25 08/24/19 14:40 08/24/19 15:10 Temperature Pulse Rate 64 61 71 Respiratory Rate 14 12 14 Blood Pressure 156/73 H 163/74 H 180/91 H Pulse Oximetry 98 98 18 L 08/24/19 15:25 08/24/19 15:40 08/24/19 15:55 Temperature Pulse Rate 69 80 65 Respiratory Rate 16 16 18 Blood Pressure 157/92 H 146/77 H Pulse Oximetry 99 96 98 08/24/19 16:55 08/24/19 22:00 08/25/19 02:00 Temperature 98.1 F 98.7 F 99.4 F Pulse Rate 60 81 81 Respiratory Rate 18 18 18 Blood Pressure 135/70 124/68 140/64 Pulse Oximetry 98 96 89 L 08/25/19 02:15 08/25/19 06:00 08/25/19 08:00 Temperature 97.8 F 97.7 F Pulse Rate 75 79 Respiratory Rate 18 16 Blood Pressure 146/63 H 140/68 Pulse Oximetry 96 95 95 Intake/Output Intake/Output: Intake & Output 08/22/19 08/23/19 08/24/19 08/25/19 23:59 23:59 23:59 23:59 Intake Total 605 300 4226 Output Total 450 875 600 Balance -130 -113 550 Meds/Results Medications: Active Medications Generic Name Dose Route Start Last Admin Trade Name Freq PRN Reason Stop Dose Admin Acetaminophen 650 mg 08/24/19 14:55 Tylenol Tablet PO Q6H PRN Mild Pain (1-3) or Fever Hydrocodone Bitart/Acetaminophen 1 tab 08/24/19 14:55 08/25/19 09:13 [place] 7.5-325 Mg PO 1 tab Q3H PRN Administration Pain Rated 4-6 Docusate Sodium 100 mg 08/24/19 17:00 08/25/19 09:07 Colace Capsule PO 100 mg BID ABDULLAHI Administration Fondaparinux 2.5 mg 08/25/19 09:00 08/25/19 09:04 Arixtra SUB-Q 2.5 mg DAILY ABDULLAHI Administration Furosemide 40 mg 08/25/19 09:00 08/25/19 09:07 Lasix Tablet PO 40 mg DAILY ABDULLAHI Administration Magnesium Hydroxide 30 ml 08/24/19 14:55 Milk Of Magnesia PO BID PRN Constipation Metolazone 5 mg 08/25/19 09:00 08/25/19 09:05 Zaroxolyn PO 5 mg Q48HR ABDULLAHI Administration Morphine Sulfate 3 mg 08/24/19 14:55 08/24/19 21:25 Morphine Sulfate Inj IV PUSH 3 mg Q
[2019-08-25] MEDS: MORPHINE SULFATE 4 MG/ML INJ 3 MG IV PUSH (12:51)
--- NOTE | 2019-08-25 13:02 | PM.IMPN ---
Progress Note: A&P Assessment and Plan (1) Subcapital fracture of left hip: Qualifiers: Encounter type: initial encounter Fracture type: closed Qualified Code(s): S72.012A - Unspecified intracapsular fracture of left femur, initial encounter for closed fracture Code(s): S72.012A - Unspecified intracapsular fracture of left femur, initial encounter for closed fracture Status: Acute Assessment and Plan: -----hemiarthroplasty completed 08/24/19 with no immediate complications. She is still on oxygen and we will continue to wean that down. She has been using her incentive spirometer but looks like she was doing it incorrectly and I taught her how to do so at bedside. Continue Arixtra for anticoagulation per Ortho. Patient has finished her stress dosing of steroids and should continue on 10 mg of prednisone daily. It appears that the fall was a mechanical fall and we will continue PT and OT. She lives alone and may need rehab services (2) Chronic back pain: Code(s): M54.9 - Dorsalgia, unspecified; G89.29 - Other chronic pain Status: Chronic Assessment and Plan: -----now with anterior wedge compression fracture with some chronic fractures as well. Ortho on board. Continue MS Contin and p.r.n. morphine. (3) Hypertension: Code(s): I10 - Essential (primary) hypertension Status: Chronic Assessment and Plan: -----last blood pressure 140/68. Continue with her amlodipine, losartan and metoprolol (reordered as these were discontinued yesterday?). Monitor BMP closely. (4) Eczema: Code(s): L30.9 - Dermatitis, unspecified Status: Chronic Assessment and Plan: -----Patient is on low-dose prednisone for this. See above (5) Depression with anxiety: Code(s): F41.8 - Other specified anxiety disorders Status: Chronic Assessment and Plan: Continue with Stelazine (6) Hypothyroidism: Code(s): E03.9 - Hypothyroidism, unspecified Status: Chronic Assessment and Plan: -----TSH within normal limits. No additional adjustments needed. (7) Hyponatremia: Code(s): E87.1 - Hypo-osmolality and hyponatremia Status: Acute Assessment and Plan: -----likely due to acute pain. No neurological deficits. Continue to monitor Additional Plan From the previous provider- Lymphoma. Patient was supposed to go through several rounds of radiation but the patient only tolerated to she decided she was not going to take any further treatment. Subjective Date/time seen: 08/25/19 13:02 Interval history: Pt is a 83-year-old female here for hip fracture. Patient was seen today and says that she got out of bed and was able to sit in a chair. She has some pain to her hip but overall doing okay. She expressed concern that her home medications were not given to her this morning, including her MS Contin that she takes regularly. The patient does not feel short of breath and does not usually wear oxygen at home. She denies chest pain, fevers, chills, abdominal pain, leg swelling, nausea or vomiting. She ate her breakfast without any issue. Exam Narrative: Exam Narrative: General: Well developed well nourished patient resting comfortably in bed in no acute distress HEENT: normocephalic, ecchymosis around the left eye with pain to palpation. Able to move her eye in all directions. Neck: supple Neuro: Alert oriented x4. CV: Regular rate and rhythm Resp:CTA Abd: Soft, non distended. No pain to palpation to the abdomen. Positive bowel sounds Extremities: Left leg without rotation or shortening. Bandage intact with no excessive bleeding or discharge. Objective Data Vital Signs Vital Signs: Vital Signs - 24 hr 08/24/19 13:44 08/24/19 13:55 08/24/19 14:10 Temperature 98.4 F Pulse Rate 67 65 59 L Respiratory Rate 12 14 14 Blood Pressure 146/71 H 160/74 H 163/76 H Pulse Oxime
[2019-08-25] MEDS: predniSONE 10 MG TABLET PO (14:37)
--- NOTE | 2019-08-25 16:58 | WPDANESPN ---
Anes - Prog Note Post-Op Date/Time: 08/25/19 16:58 Cardiovascular status: normal Respiratory status: normal Airway patency: baseline Mental status: baseline Post-Op hydration status: normal Vital Signs: Last Vital Signs Temp 97.6 F 08/25/19 14:00 Pulse 82 08/25/19 14:00 Resp 18 08/25/19 14:00 BP 138/68 08/25/19 14:00 Pulse Ox 96 08/25/19 14:00 I/O: Intake & Output 08/25/19 08/25/19 08/25/19 07:59 15:59 23:59 Intake Total 1150 Output Total 600 Balance 550 Laboratory Tests 08/25/19 05:19 08/25/19 05:19 08/25/19 08/25/19 08/25/19 05:19 05:19 05:19 WBC 7.8 RBC 3.67 L Hgb 10.8 L Hct 32.7 L MCV 89.1 MCH 29.4 MCHC 33.0 RDW 13.1 Plt Count 184 MPV 9.2 Immature Gran % (Auto) 0.3 Neut % (Auto) 75.8 H Lymph % (Auto) 9.6 L [place] % (Auto) 14.2 H Eos % (Auto) 0.0 Baso % (Auto) 0.1 L Lymph # (Auto) 0.75 L [place] # (Auto) 1.1 H Eos # (Auto) 0.0 Baso # (Auto) 0.0 Abs Immat Gran (auto) 0.02 Absolute Neuts (auto) 6.0 Absolute Nucleated RBC 0.0 Nucleated RBC % 0.0 Sodium 130 L Potassium 3.4 Chloride 95 L Carbon Dioxide 28 BUN 10 D Creatinine 0.50 L Estim Creat Clear Calc 58 Estimated GFR > 60 Glucose 132 H Calcium 8.7 Vitamin D 25-Hydroxy 37.2 Post-procedural complaints: none Patient Feedback: Patient satisfied with anesthetic care.
[2019-08-25] MEDS: MORPHINE SULFATE 30 MG TABCR PO (20:18)
[2019-08-25] MEDS: METOPROLOL TARTRATE 50 MG TAB PO (20:18)
[2019-08-25] MEDS: TRIFLUOPERAZINE HCL 1 MG TABLET PO (20:18)
[2019-08-26] VITALS (7 sets, daily range): BP systolic 100–137; BP diastolic 50–65; PULSE 62–91; RESP 18–20; TEMP 36.7–37.3; O2SAT 93–97
[2019-08-26] MEDS: LEVOTHYROXINE SODIUM 75 MCG TABLET PO (05:54)
[2019-08-26 06:00] LABS: Hematocrit 27.4 % (37.0-47.0); Hemoglobin 9.3 g/dL (12.0-15.0)
[2019-08-26 07:22] LABS: Blood Urea Nitrogen 15 mg/dL (7-17); Calcium 8.6 mg/dL (8.4-10.2); Carbon Dioxide 35 mmol/L (22-30); Chloride 89 mmol/L (98-107); Estimated CRCL calculation 43 ml/min; Estimated Glomerular Filt Rate > 60; Glucose 93 mg/dL (65-105); Sodium 125 mmol/L (137-145)
[2019-08-26] MEDS: LOSARTAN POTASSIUM 100 MG TABLET PO (08:49)
[2019-08-26] MEDS: FONDAPARINUX SODIUM 2.5 MG/0.5 ML SYRINGE SUB-Q (08:49)
[2019-08-26] MEDS: TRIFLUOPERAZINE HCL 1 MG TABLET PO ×2 (08:49→21:49)
[2019-08-26] MEDS: predniSONE 10 MG TABLET PO (08:49)
[2019-08-26] MEDS: DOCUSATE SODIUM 100 MG CAPSULE PO ×2 (08:50→17:03)
[2019-08-26] MEDS: AMLODIPINE BESYLATE 5 MG TABLET 10 MG PO (08:50)
[2019-08-26] MEDS: METOPROLOL TARTRATE 50 MG TAB PO ×2 (08:50→21:48)
[2019-08-26] MEDS: FUROSEMIDE 40 MG TABLET PO (08:51)
[2019-08-26] MEDS: PANTOPRAZOLE SOD SESQUIHYDRATE 20 MG TAB PO (08:51)
[2019-08-26] MEDS: MORPHINE SULFATE 30 MG TABCR PO ×2 (08:54→21:48)
[2019-08-26] MEDS: polyethylene glycoL 3350 17 GM POWD.PACK PO (08:54)
[2019-08-26] MEDS: POTASSIUM CHLORIDE 20 MEQ TABLET 40 MEQ PO (10:01)
[2019-08-26 11:28] LABS: Sodium Urine Random 50 meq/L
--- NOTE | 2019-08-26 13:46 | PM.IMPN ---
Progress Note: A&P Assessment and Plan (1) Subcapital fracture of left hip: Qualifiers: Encounter type: initial encounter Fracture type: closed Qualified Code(s): S72.012A - Unspecified intracapsular fracture of left femur, initial encounter for closed fracture Code(s): S72.012A - Unspecified intracapsular fracture of left femur, initial encounter for closed fracture Status: Acute Assessment and Plan: -----hemiarthroplasty completed 08/24/19 with no immediate complications. She is still on oxygen and we will continue to wean that down and she has been instructed to use the spirometer. Continue Arixtra for anticoagulation per Ortho. Patient has finished her stress dosing of steroids and should continue on 10 mg of prednisone daily. It appears that the fall was a mechanical fall and we will continue PT and OT. She lives alone and will need rehab services (2) Chronic back pain: Code(s): M54.9 - Dorsalgia, unspecified; G89.29 - Other chronic pain Status: Chronic Assessment and Plan: -----now with anterior wedge compression fracture with some chronic fractures as well. Ortho on board. Continue MS Contin and p.r.n. morphine. (3) Hypertension: Code(s): I10 - Essential (primary) hypertension Status: Chronic Assessment and Plan: -----last blood pressure 137/65. Continue with her amlodipine, losartan and metoprolol. Monitor BMP closely. (4) Eczema: Code(s): L30.9 - Dermatitis, unspecified Status: Chronic Assessment and Plan: -----Patient is on low-dose prednisone for this. See above (5) Depression with anxiety: Code(s): F41.8 - Other specified anxiety disorders Status: Chronic Assessment and Plan: Continue with Stelazine (6) Hypothyroidism: Code(s): E03.9 - Hypothyroidism, unspecified Status: Chronic Assessment and Plan: -----TSH within normal limits. No additional adjustments needed. (7) Hyponatremia: Code(s): E87.1 - Hypo-osmolality and hyponatremia Status: Acute Assessment and Plan: -----worse today. Likely due to acute pain as she appears euvolemic. The patient is also on diuretics which can do this but she was on these medications on admission and her sodium was better then. Consider adrenal crises but the patient was stress dosed steroids and her potassium is also low and this would likely be high with adrenal crisis. No neurological deficits. Continue to monitor (8) Acute respiratory failure with hypoxia: Code(s): J96.01 - Acute respiratory failure with hypoxia Status: Acute Assessment and Plan: -----patient is still requiring 1 L. Chest x-ray shows atelectasis and small pleural effusions. She does not appear fluid overloaded and she was given her diuretics this morning. Will hold off on these at this time since her sodium is still low. May resume soon after sodium improved. Additional Plan From the previous provider- Lymphoma. Patient was supposed to go through several rounds of radiation but the patient only tolerated to she decided she was not going to take any further treatment. Subjective Date/time seen: 08/26/19 13:46 Interval history: Pt is a 83-year-old female here for hip fracture. Patient was seen today and was sitting up in the chair with 10 of 10 hip pain. She says that it is very uncomfortable to stand up. When she is lying in bed it is an 8/10. She says she has not been utilizing her spirometer because she could not reach it. She does not feel short of breath nor does she have a cough. She has been eating and drinking okay and has been drinking more liquids so she would pee more . She has not had a bowel movement but has urinated. Exam Narrative: Exam Narrative: General: Well developed well nourished patient resting comfortably in bed in no acute distress HEENT: normocephalic, ecchymosis
--- NOTE | 2019-08-26 13:49 | PM.PNORT ---
Progress Note: A&P Additional Plan POD 2 IMPROVING. HAVING BACK PAIN FROM COMPRESSION FRACTURE WHICH IS CONTRIBUTING TO HER SLOW PROGRESS. 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 [employer]G [employer] SIGN Objective Data Vital Signs Vital Signs: Vital Signs - 24 hr 08/25/19 14:00 08/25/19 20:18 08/25/19 22:00 Temperature 36.4 C 37.5 C Pulse Rate 82 84 94 Respiratory Rate 18 18 Blood Pressure 138/68 138/80 Pulse Oximetry 96 95 08/26/19 06:00 08/26/19 08:50 08/26/19 11:13 Temperature 37.0 C 37.1 C Pulse Rate 62 66 Respiratory Rate 18 Blood Pressure 137/65 Pulse Oximetry 93 Intake/Output Intake/Output: Intake & Output 08/23/19 08/24/19 08/25/19 08/26/19 23:59 23:59 23:59 23:59 Intake Total 576 341 1553 700 Output Total 925 069 0406 Balance -130 -113 1120 700 Meds/Results Medications: Active Medications Generic Name Dose Route Start Last Admin Trade Name Freq PRN Reason Stop Dose Admin Acetaminophen 650 mg 08/24/19 14:55 Tylenol Tablet PO Q6H PRN Mild Pain (1-3) or Fever Hydrocodone Bitart/Acetaminophen 1 tab 08/24/19 14:55 08/26/19 11:42 [place] 7.5-325 Mg PO 1 tab Q3H PRN Administration Pain Rated 4-6 Amlodipine Besylate 10 mg 08/26/19 09:00 08/26/19 08:50 Norvasc PO 10 mg QAM ABDULLAHI Administration Docusate Sodium 100 mg 08/24/19 17:00 08/26/19 08:50 Colace Capsule PO 100 mg BID ABDULLAHI Administration Fondaparinux 2.5 mg 08/25/19 09:00 08/26/19 08:49 Arixtra SUB-Q 2.5 mg DAILY ABDULLAHI Administration Furosemide 40 mg 08/25/19 09:00 08/26/19 08:51 Lasix Tablet PO 40 mg DAILY ABDULLAHI Administration Levothyroxine Sodium 75 mcg 08/26/19 06:30 08/26/19 05:54 Synthroid PO 75 mcg DAILY@0630 ABDULLAHI Administration Losartan Potassium 100 mg 08/26/19 09:00 08/26/19 08:49 Cozaar PO 100 mg DAILY ABDULLAHI Administration Magnesium Hydroxide 30 ml 08/24/19 14:55 Milk Of Magnesia PO BID PRN Constipation Metolazone 5 mg 08/25/19 09:00 08/25/19 09:05 Zaroxolyn PO 5 mg Q48HR ABDULLAHI Administration Metoprolol Tartrate 50 mg 08/25/19 21:00 08/26/19 08:50 Lopressor PO 50 mg Q12HR ABDULLAHI Administration Morphine Sulfate 3 mg 08/24/19 14:55 08/25/19 12:51 Morphine Sulfate Inj IV PUSH 3 mg Q3H PRN Administration Pain Rated 7-10 Morphine Sulfate 30 mg 08/25/19 21:00 08/26/19 08:54 Ms Contin PO 30 mg Q12HR ABDULLAHI Administration Naloxone HCl 0.1 mg 08/24/19 14:55 Narcan IV PUSH Q2M PRN Opiate Reversal Ondansetron HCl 4 mg 08/24/19 14:55 Zofran Inj IV PUSH Q4H PRN Nausea And Vomiting Pantoprazole Sodium 20 mg 08/26/19 09:00 08/26/19 08:51 Protonix PO 20 mg QAM ABDULLAHI Administration Polyethylene Glycol 17 gm 08/26/19 09:00 08/26/19 08:54 Miralax PO 17 gm QAM ABDULLAHI Administration Prednisone 10 mg 08/25/19 12:55 08/26/19 08:49 Prednisone PO 10 mg DAILY ABDULLAHI Administration Trifluoperazine HCl 1 mg 08/25/19 21:00 08/26/19 08:49 Stelazine PO 1 mg Q12HR ABDULLAHI Administration Radiology Results: ITS Impressions Head CT 08/23/19 12:54 IMPRESSION: 1. Worsened extensive nonspecific cerebral white matter disease, which likely represents chronic small vessel ischemic disease. Cervical Spine CT 08/23/19 12:57 IMPRESSION: 1. No fracture. 2. Severe cervical spondylosis. Hip/Pelvis X-Ray 08/23/19 13:03 IMPRESSION: 1. Acute subcapital fracture of left femoral neck. 2. Moderate osteoarthritis of the hips. Lumbar Spine X-Ray 08/23/19 13:03 IMPRESSION: New anterior wedge compression fracture deformity of L1 since 06/01/2018 Stable compression fracture deformity of T11 Chronic burst fracture of T12, with vertebroplasty Diffuse severe osteopenia Rotatory dextroscoliosis of
[2019-08-26 22:34] LABS: Glucose Point of Care 185 (65-105)
[2019-08-27 06:00] VITALS: BP 118/61; PULSE 64; RESP 20; TEMP 37.1; O2SAT 95
[2019-08-27] MEDS: LEVOTHYROXINE SODIUM 75 MCG TABLET PO (06:04)
[2019-08-27 06:15] LABS: Alanine Aminotransferase 17 U/L (4-35); Albumin Level 3.2 g/dL (3.5-5.1); Alkaline Phosphatase 52 U/L (38-126); Aspartate Amino Transferase 41 U/L (14-36); Bilirubin,Total 0.9 mg/dL (0.2-1.3); Blood Urea Nitrogen 18 mg/dL (7-17); Calcium 8.5 mg/dL (8.4-10.2); Carbon Dioxide 32 mmol/L (22-30); Chloride 87 mmol/L (98-107); Estimated CRCL calculation 49 ml/min; Estimated Glomerular Filt Rate > 60; Glucose 90 mg/dL (65-105); Potassium 3.3 mmol/L (3.4-5.0); Sodium 123 mmol/L (137-145)
[2019-08-27 07:23] VITALS: O2SAT 90
[2019-08-27] MEDS: polyethylene glycoL 3350 17 GM POWD.PACK PO (09:00)
[2019-08-27 09:02] VITALS: PULSE 65
[2019-08-27] MEDS: METOPROLOL TARTRATE 50 MG TAB PO ×2 (09:02→21:29)
[2019-08-27] MEDS: FONDAPARINUX SODIUM 2.5 MG/0.5 ML SYRINGE SUB-Q (09:02)
[2019-08-27] MEDS: MORPHINE SULFATE 30 MG TABCR PO ×2 (09:03→21:29)
[2019-08-27] MEDS: PANTOPRAZOLE SOD SESQUIHYDRATE 20 MG TAB PO (09:03)
[2019-08-27] MEDS: LOSARTAN POTASSIUM 100 MG TABLET PO (09:03)
[2019-08-27] MEDS: AMLODIPINE BESYLATE 5 MG TABLET 10 MG PO (09:03)
[2019-08-27] MEDS: predniSONE 10 MG TABLET PO (09:03)
[2019-08-27] MEDS: TRIFLUOPERAZINE HCL 1 MG TABLET PO ×2 (09:03→21:29)
[2019-08-27] MEDS: DOCUSATE SODIUM 100 MG CAPSULE PO ×2 (09:03→17:49)
[2019-08-27] MEDS: POTASSIUM CHLORIDE 20 MEQ TABLET 40 MEQ PO (10:33)
[2019-08-27 10:45] LABS: Sodium Urine Random 33 meq/L
[2019-08-27 10:51] LABS: Creatinine Urine 53.4 mg/dL
[2019-08-27 10:51] LABS: Urea Random Urine 374 MG/DL
--- NOTE | 2019-08-27 13:14 | PM.IMPN ---
Progress Note: A&P Assessment and Plan (1) Hyponatremia: Code(s): E87.1 - Hypo-osmolality and hyponatremia Status: Acute Assessment and Plan: -----worse today 123. Initially put on fluid restriction. Her fractional excretion of urea came back 23% which would favor pre renal. I will start fluids at this time but monitor her fluid status closely. 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 The patient was also on diuretics which can worsened this. They have been held and her last dose was 08/25. adrenal crises not likely as the patient was stress dosed steroids and her potassium is also low and this would likely be high with adrenal crisis. No neurological deficits. Continue to monitor (2) Subcapital fracture of left hip: Qualifiers: Encounter type: initial encounter Fracture type: closed Qualified Code(s): S72.012A - Unspecified intracapsular fracture of left femur, initial encounter for closed fracture Code(s): S72.012A - Unspecified intracapsular fracture of left femur, initial encounter for closed fracture Status: Acute Assessment and Plan: -----hemiarthroplasty completed 08/24/19 with no immediate complications. She is still on oxygen and we will continue to wean that down and she has been instructed to use the spirometer. Continue Arixtra for anticoagulation per Ortho. Patient has finished her stress dosing of steroids and should continue on 10 mg of prednisone daily. It appears that the fall was a mechanical fall and we will continue PT and OT. She lives alone and will likely d/c to [facility] in 1-2 days depending on her sodium. (3) Chronic back pain: Code(s): M54.9 - Dorsalgia, unspecified; G89.29 - Other chronic pain Status: Chronic Assessment and Plan: -----now with anterior wedge compression fracture with some chronic fractures as well. Ortho on board. Continue MS Contin and p.r.n. morphine. (4) Hypertension: Code(s): I10 - Essential (primary) hypertension Status: Chronic Assessment and Plan: -----last blood pressure 118/61. Continue with her amlodipine, losartan and metoprolol. Monitor BMP closely. (5) Eczema: Code(s): L30.9 - Dermatitis, unspecified Status: Chronic Assessment and Plan: -----Patient is on low-dose prednisone for this. See above (6) Depression with anxiety: Code(s): F41.8 - Other specified anxiety disorders Status: Chronic Assessment and Plan: Continue with Stelazine (7) Hypothyroidism: Code(s): E03.9 - Hypothyroidism, unspecified Status: Chronic Assessment and Plan: -----TSH within normal limits. No additional adjustments needed. (8) Acute respiratory failure with hypoxia: Code(s): J96.01 - Acute respiratory failure with hypoxia Status: Acute Assessment and Plan: -----patient is still requiring 0.5 L. Chest x-ray shows atelectasis and small pleural effusions. Additional Plan From the previous provider- Lymphoma. Patient was supposed to go through several rounds of radiation but the patient only tolerated to she decided she was not going to take any further treatment. Subjective Date/time seen: 08/27/19 13:14 Interval history: Pt is a 83-year-old female here for hip fracture. Patient was seen today and states that her back is hurting her more than her hip. She says the pain is a 7/10 at this time. She has not had any nausea, vomiting, fevers, chills, chest pain or shortness of breath. She has been utilizing her spirometer. She has not had a bowel movement since being here. She states that she is aware of her murmur and her primary care physician knows as well. I called her daughter Annie [phone] and spoke to her about the plan of care Exam Narrative: Exam Narrative: General: Well developed well nourished patient resting comfortably in bed in no acute distress
[2019-08-27 14:00] VITALS: BP 127/55; PULSE 63; RESP 16; TEMP 36.6; O2SAT 98
[2019-08-27] MEDS: SODIUM CHLORIDE 0.9% IV 1,000 ML 75 ML IV CONT (15:37)
--- NOTE | 2019-08-27 15:43 | PM.PNORT ---
Progress Note: A&P Additional Plan POD 3 IMPROVING. AWAITING [facility] CONSULT DUE TO HIP AND LUMBAR FRACTURES. SHE MAY BE TRANSFERRED WHEN OK WITH MEDICINE. Subjective Subjective Date/Time Seen: 08/27/19 15:43 POD 3 IMPROVING BUT STILL WITH SLOW PROGRESS. 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[employer] SIGN Objective Data Vital Signs Vital Signs: Vital Signs - 24 hr 08/26/19 20:25 08/26/19 21:48 08/26/19 22:00 Temperature 36.7 C Pulse Rate 74 74 82 Respiratory Rate 20 Blood Pressure 100/56 L 122/50 L Pulse Oximetry 96 97 08/27/19 06:00 08/27/19 07:23 08/27/19 09:02 Temperature 37.1 C Pulse Rate 64 65 Respiratory Rate 20 Blood Pressure 118/61 Pulse Oximetry 95 90 Intake/Output Intake/Output: Intake & Output 08/24/19 08/25/19 08/26/19 08/27/19 23:59 23:59 23:59 23:59 Intake Total 762 2570 1640 910 Output Total 875 1450 625 500 Balance -113 1120 1015 410 Meds/Results Medications: Active Medications Generic Name Dose Route Start Last Admin Trade Name Freq PRN Reason Stop Dose Admin Acetaminophen 650 mg 08/24/19 14:55 Tylenol Tablet PO Q6H PRN Mild Pain (1-3) or Fever Hydrocodone Bitart/Acetaminophen 1 tab 08/24/19 14:55 08/27/19 13:56 [place] 7.5-325 Mg PO 1 tab Q3H PRN Administration Pain Rated 4-6 Amlodipine Besylate 10 mg 08/26/19 09:00 08/27/19 09:03 Norvasc PO 10 mg QAM ABDULLAHI Administration Docusate Sodium 100 mg 08/24/19 17:00 08/27/19 09:03 Colace Capsule PO 100 mg BID ABDULLAHI Administration Fondaparinux 2.5 mg 08/25/19 09:00 08/27/19 09:02 Arixtra SUB-Q 2.5 mg DAILY ABDULLAHI Administration Furosemide 40 mg 08/25/19 09:00 08/26/19 08:51 Lasix Tablet PO 40 mg DAILY ABDULLAHI Administration Sodium Chloride 1,000 mls @ 75 mls/hr 08/27/19 13:40 08/27/19 15:37 Normal Saline Iv IV CONT 75 mls/hr .[id number] ABDULLAHI Administration Levothyroxine Sodium 75 mcg 08/26/19 06:30 08/27/19 06:04 Synthroid PO 75 mcg DAILY@0630 ABDULLAHI Administration Losartan Potassium 100 mg 08/26/19 09:00 08/27/19 09:03 Cozaar PO 100 mg DAILY ABDULLAHI Administration Magnesium Hydroxide 30 ml 08/24/19 14:55 Milk Of Magnesia PO BID PRN Constipation Metolazone 5 mg 08/25/19 09:00 08/25/19 09:05 Zaroxolyn PO 5 mg Q48HR ABDULLAHI Administration Metoprolol Tartrate 50 mg 08/25/19 21:00 08/27/19 09:02 Lopressor PO 50 mg Q12HR ABDULLAHI Administration Morphine Sulfate 3 mg 08/24/19 14:55 08/25/19 12:51 Morphine Sulfate Inj IV PUSH 3 mg Q3H PRN Administration Pain Rated 7-10 Morphine Sulfate 30 mg 08/25/19 21:00 08/27/19 09:03 Ms Contin PO 30 mg Q12HR ABDULLAHI Administration Naloxone HCl 0.1 mg 08/24/19 14:55 Narcan IV PUSH Q2M PRN Opiate Reversal Ondansetron HCl 4 mg 08/24/19 14:55 Zofran Inj IV PUSH Q4H PRN Nausea And Vomiting Pantoprazole Sodium 20 mg 08/26/19 09:00 08/27/19 09:03 Protonix PO 20 mg QAM ABDULLAHI Administration Polyethylene Glycol 17 gm 08/26/19 09:00 08/27/19 09:00 Miralax PO 17 gm QAM ABDULLAHI Administration Prednisone 10 mg 08/25/19 12:55 08/27/19 09:03 Prednisone PO 10 mg DAILY ABDULLAHI Administration Trifluoperazine HCl 1 mg 08/25/19 21:00 08/27/19 09:03 Stelazine PO 1 mg Q12HR ABDULLAHI Administration Radiology Results: ITS Impressions Head CT 08/23/19 12:54 IMPRESSION: 1. Worsened extensive nonspecific cerebral white matter disease, which likely represents chronic small vessel ischemic disease. Cervical Spine CT 08/23/19 12:57 IMPRESSION: 1. No fracture. 2. Severe cervical spondylosis. Hip/Pelvis X-Ray 08/23/19 13:03 IMPRESSION: 1. Acute subcapital fracture of left femoral neck. 2. Moderate osteoarthritis of the hips. Lumbar Spine X-Ray 08/23/19 13:03 IMPRESSION: New anterior wedge compression fracture deformity of L1 sinc
[2019-08-27 16:21] LABS: Blood Urea Nitrogen 18 mg/dL (7-17); Calcium 8.7 mg/dL (8.4-10.2); Carbon Dioxide 34 mmol/L (22-30); Chloride 86 mmol/L (98-107); Estimated CRCL calculation 38 ml/min; Estimated Glomerular Filt Rate > 60; Glucose 142 mg/dL (65-105); Potassium 3.7 mmol/L (3.4-5.0); Sodium 127 mmol/L (137-145)
[2019-08-27 21:29] VITALS: PULSE 63
[2019-08-27 22:00] VITALS: BP 112/62; PULSE 66; RESP 16; TEMP 37.4; O2SAT 97
[2019-08-28] MEDS: LEVOTHYROXINE SODIUM 75 MCG TABLET PO (05:56)
[2019-08-28] MEDS: SODIUM CHLORIDE 0.9% IV 1,000 ML 30 ML IV CONT (05:56)
[2019-08-28 06:00] VITALS: BP 124/61; PULSE 66; RESP 16; TEMP 36.8; O2SAT 92
[2019-08-28 07:11] LABS: Hematocrit 27.7 % (37.0-47.0); Hemoglobin 9.2 g/dL (12.0-15.0)
[2019-08-28 07:33] LABS: Blood Urea Nitrogen 21 mg/dL (7-17); Calcium 8.2 mg/dL (8.4-10.2); Carbon Dioxide 29 mmol/L (22-30); Chloride 91 mmol/L (98-107); Estimated CRCL calculation 49 ml/min; Estimated Glomerular Filt Rate > 60; Glucose 95 mg/dL (65-105); Magnesium 1.9 mg/dL (1.6-2.3); Potassium 3.5 mmol/L (3.4-5.0); Sodium 127 mmol/L (137-145)
[2019-08-28] MEDS: polyethylene glycoL 3350 17 GM POWD.PACK PO (09:11)
[2019-08-28] MEDS: LOSARTAN POTASSIUM 100 MG TABLET PO (09:12)
[2019-08-28] MEDS: AMLODIPINE BESYLATE 5 MG TABLET 10 MG PO (09:13)
[2019-08-28] MEDS: FONDAPARINUX SODIUM 2.5 MG/0.5 ML SYRINGE SUB-Q (09:15)
[2019-08-28] MEDS: METOPROLOL TARTRATE 50 MG TAB PO ×2 (09:16→20:25)
[2019-08-28] MEDS: POTASSIUM CHLORIDE 20 MEQ TABLET PO (09:16)
[2019-08-28] MEDS: predniSONE 10 MG TABLET PO (09:17)
[2019-08-28] MEDS: PANTOPRAZOLE SOD SESQUIHYDRATE 20 MG TAB PO (09:17)
[2019-08-28] MEDS: TRIFLUOPERAZINE HCL 1 MG TABLET PO ×2 (09:18→20:25)
[2019-08-28] MEDS: MORPHINE SULFATE 30 MG TABCR PO ×2 (09:22→20:25)
[2019-08-28] MEDS: DOCUSATE SODIUM 100 MG CAPSULE PO ×2 (09:22→18:26)
[2019-08-28 10:00] VITALS: BP 120/51; PULSE 63; RESP 20; TEMP 36.9; O2SAT 97
[2019-08-28 12:03] VITALS: O2SAT 90
[2019-08-28 12:33] LABS: Sodium 125 mmol/L (137-145)
--- NOTE | 2019-08-28 13:12 | PM.IMPN ---
Progress Note: A&P Assessment and Plan (1) Hyponatremia: Code(s): E87.1 - Hypo-osmolality and hyponatremia Status: Acute Assessment and Plan: -----waxes and wanes, currently 125. It was 127 this morning and her fluids were increased to 75mls/hr but was not actually changed until later in the day. Her noon sodium is not reflective of these changes. Her fractional excretion of urea came back 23% which would favor pre renal. 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 The patient was also on diuretics which can worsened this. They have been held and her last dose was 08/25. adrenal crises not likely as the patient was stress dosed steroids and her potassium is also low and this would likely be high with adrenal crisis. No neurological deficits. Continue to monitor (2) Subcapital fracture of left hip: Qualifiers: Encounter type: initial encounter Fracture type: closed Qualified Code(s): S72.012A - Unspecified intracapsular fracture of left femur, initial encounter for closed fracture Code(s): S72.012A - Unspecified intracapsular fracture of left femur, initial encounter for closed fracture Status: Acute Assessment and Plan: -----hemiarthroplasty completed 08/24/19 with no immediate complications. She is still on oxygen and we will continue to wean that down and she has been instructed to use the spirometer. Continue Arixtra for anticoagulation per Ortho. Patient has finished her stress dosing of steroids and should continue on 10 mg of prednisone daily. It appears that the fall was a mechanical fall and we will continue PT and OT. She lives alone and will likely d/c to [facility] in 1-2 days depending on her sodium. (3) Chronic back pain: Code(s): M54.9 - Dorsalgia, unspecified; G89.29 - Other chronic pain Status: Chronic Assessment and Plan: -----now with anterior wedge compression fracture with some chronic fractures as well. Ortho on board. Continue MS Contin and p.r.n. morphine. (4) Hypertension: Code(s): I10 - Essential (primary) hypertension Status: Chronic Assessment and Plan: -----last blood pressure 120/51. Continue with her amlodipine, losartan and metoprolol. Monitor BMP closely. (5) Eczema: Code(s): L30.9 - Dermatitis, unspecified Status: Chronic Assessment and Plan: -----Patient is on low-dose prednisone for this. See above (6) Depression with anxiety: Code(s): F41.8 - Other specified anxiety disorders Status: Chronic Assessment and Plan: Continue with Stelazine (7) Hypothyroidism: Code(s): E03.9 - Hypothyroidism, unspecified Status: Chronic Assessment and Plan: -----TSH within normal limits. No additional adjustments needed. (8) Acute respiratory failure with hypoxia: Code(s): J96.01 - Acute respiratory failure with hypoxia Status: Acute Assessment and Plan: -----patient is still requiring 0.5 L. Chest x-ray shows atelectasis and small pleural effusions. They are currently weaning oxygen as tolerated Additional Plan From the previous provider- Lymphoma. Patient was supposed to go through several rounds of radiation but the patient only tolerated to she decided she was not going to take any further treatment. Subjective Date/time seen: 08/28/19 13:12 Interval history: Pt is a 83-year-old female here for hip fracture. Patient was seen today and says she is still having pain in her hip and back that is worse with exercise. She is eating and drinking okay. She is still not had a bowel movement. She thinks she has had a decreased appetite because of the pain. Exam Narrative: Exam Narrative: General: Well developed well nourished patient resting comfortably in bed in no acute distress HEENT: normocephalic, ecchymosis around the left eye with pain to palpation. Able to move her eye in all
[2019-08-28 14:00] VITALS: BP 131/50; PULSE 72; RESP 18; TEMP 36.9; O2SAT 92
[2019-08-28] MEDS: ACETAMINOPHEN 325 MG TABLET 650 MG PO (18:26)
[2019-08-28 20:25] VITALS: PULSE 72
[2019-08-28] MEDS: SODIUM CHLORIDE 0.9% IV 1,000 ML 75 ML IV CONT (20:28)
[2019-08-28 21:59] VITALS: BP 113/57; PULSE 73; RESP 16; TEMP 37.6; O2SAT 93
[2019-08-29] MEDS: ACETAMINOPHEN 325 MG TABLET 650 MG PO ×5 (00:23→23:53)
[2019-08-29 06:00] VITALS: BP 148/63; PULSE 68; RESP 16; TEMP 36.6; O2SAT 94
[2019-08-29] MEDS: LEVOTHYROXINE SODIUM 75 MCG TABLET PO (06:08)
[2019-08-29 06:20] LABS: Hemoglobin 7.8 g/dL (12.0-15.0); Mean Corpuscular HGB Conc 32.5 g/dl (32-36); Mean Corpuscular Hemoglobin 29.7 pg (26-34); Mean Corpuscular Volume 91.3 fl (80-100); Mean Platelet Volume 9.5 fl (7.4-10.4); Platelet Count Result 224 k/mm3 (150-375); Red Blood Count 2.63 M/mm3 (4.2-5.4); Red Cell Distribution Width 12.9 % (11.5-14.5); White Blood Count 4.3 K/mm3 (4.5-10.0)
[2019-08-29 06:35] LABS: Blood Urea Nitrogen 19 mg/dL (7-17); Carbon Dioxide 30 mmol/L (22-30); Chloride 96 mmol/L (98-107); Estimated CRCL calculation 49 ml/min; Estimated Glomerular Filt Rate > 60; Glucose 83 mg/dL (65-105); Potassium 3.8 mmol/L (3.4-5.0); Sodium 129 mmol/L (137-145)
[2019-08-29] MEDS: METOPROLOL TARTRATE 50 MG TAB PO ×2 (07:52→21:15)
[2019-08-29] MEDS: PANTOPRAZOLE SOD SESQUIHYDRATE 20 MG TAB PO (07:52)
[2019-08-29] MEDS: TRIFLUOPERAZINE HCL 1 MG TABLET PO ×2 (07:52→21:15)
[2019-08-29] MEDS: AMLODIPINE BESYLATE 5 MG TABLET 10 MG PO (07:53)
[2019-08-29] MEDS: DOCUSATE SODIUM 100 MG CAPSULE PO ×2 (07:53→18:08)
[2019-08-29] MEDS: MORPHINE SULFATE 30 MG TABCR PO ×2 (07:53→21:17)
[2019-08-29] MEDS: LOSARTAN POTASSIUM 100 MG TABLET PO (07:53)
[2019-08-29] MEDS: FONDAPARINUX SODIUM 2.5 MG/0.5 ML SYRINGE SUB-Q (07:54)
[2019-08-29] MEDS: LIDOCAINE 5% PATCH 1 PATCH TRANSDERM (07:54)
[2019-08-29] MEDS: predniSONE 10 MG TABLET PO (07:55)
[2019-08-29] MEDS: polyethylene glycoL 3350 17 GM POWD.PACK PO (07:55)
[2019-08-29 08:00] VITALS: PULSE 68; RESP 16; O2SAT 94
[2019-08-29 08:44] VITALS: O2SAT 93
[2019-08-29 14:00] VITALS: BP 129/62; PULSE 70; RESP 16; TEMP 36.7; O2SAT 97
--- NOTE | 2019-08-29 14:50 | PM.IMPN ---
Progress Note: A&P Assessment and Plan (1) Hyponatremia: Code(s): E87.1 - Hypo-osmolality and hyponatremia Status: Acute Assessment and Plan: -----Improved today with IV fluids and better pain management. Her lungs are clear and no signs of fluid overload so I will continue fluids 75mls/hr. Her fractional excretion of urea came back 23% which would favor pre renal. 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 They have been adrenal crises not likely as the patient was stress dosed steroids and her potassium is also low and this would likely be high with adrenal crisis. No neurological deficits. Continue to monitor (2) Subcapital fracture of left hip: Qualifiers: Encounter type: initial encounter Fracture type: closed Qualified Code(s): S72.012A - Unspecified intracapsular fracture of left femur, initial encounter for closed fracture Code(s): S72.012A - Unspecified intracapsular fracture of left femur, initial encounter for closed fracture Status: Acute Assessment and Plan: -----hemiarthroplasty completed 08/24/19 with no immediate complications. She is still on oxygen and we will continue to wean that down and she has been instructed to use the spirometer. Continue Arixtra for anticoagulation per Ortho. Patient has finished her stress dosing of steroids and should continue on 10 mg of prednisone daily. It appears that the fall was a mechanical fall and we will continue PT and OT. She lives alone and will likely d/c to [facility] in 1-2 days depending on her sodium. (3) Chronic back pain: Code(s): M54.9 - Dorsalgia, unspecified; G89.29 - Other chronic pain Status: Chronic Assessment and Plan: -----now with anterior wedge compression fracture with some chronic fractures as well. Ortho on board. Continue MS Contin and p.r.n. pain meds (4) Hypertension: Code(s): I10 - Essential (primary) hypertension Status: Chronic Assessment and Plan: -----last blood pressure 148/63. Continue with her amlodipine, losartan and metoprolol. Monitor BMP closely. (5) Eczema: Code(s): L30.9 - Dermatitis, unspecified Status: Chronic Assessment and Plan: -----Patient is on low-dose prednisone for this. See above (6) Depression with anxiety: Code(s): F41.8 - Other specified anxiety disorders Status: Chronic Assessment and Plan: Continue with Stelazine (7) Hypothyroidism: Code(s): E03.9 - Hypothyroidism, unspecified Status: Chronic Assessment and Plan: -----TSH within normal limits. No additional adjustments needed. (8) Acute respiratory failure with hypoxia: Code(s): J96.01 - Acute respiratory failure with hypoxia Status: Acute Assessment and Plan: -----Resolved. Off o2 Additional Plan From the previous provider- Lymphoma. Patient was supposed to go through several rounds of radiation but the patient only tolerated to she decided she was not going to take any further treatment. Subjective Date/time seen: 08/29/19 14:50 Interval history: Pt is a 83-year-old female here for hip fracture. Patient was seen today and her pain is much more controlled at this time with the medication changes from yesterday. She was not able to urinate overnight and had to be straight cathed this morning. She urinated 450cc this afternoon though so is doing okay now. She still has not had a BM. She denies CP, SOB, fevers, chills, nausea, vomiting, or abdominal pain. Exam Narrative: Exam Narrative: General: Well developed well nourished patient resting comfortably in bed in no acute distress HEENT: normocephalic, ecchymosis around the left eye with pain to palpation. Able to move her eye in all directions. Neck: supple Neuro: Alert oriented x4. CV: Regular rate and rhythm Resp:CTA Abd: Soft, non distended. No pain to palpation to the abdomen.
[2019-08-29] MEDS: BISACODYL 10 MG SUPPOSITORY RECTAL (16:49)
[2019-08-29] MEDS: HYDROMORPHONE HCL 1 MG/ML INJ IV PUSH (19:55)
[2019-08-29 21:15] VITALS: PULSE 78
[2019-08-29 22:00] VITALS: BP 166/81; PULSE 77; RESP 16; TEMP 36.6; O2SAT 95
[2019-08-29] MEDS: SODIUM CHLORIDE 0.9% IV 1,000 ML 75 ML IV CONT (23:54)
[2019-08-30 06:00] VITALS: BP 158/67; PULSE 68; RESP 16; TEMP 36.9; O2SAT 92
[2019-08-30] MEDS: LEVOTHYROXINE SODIUM 75 MCG TABLET PO (06:00)
[2019-08-30] MEDS: ACETAMINOPHEN 325 MG TABLET 650 MG PO ×2 (06:00→12:23)
[2019-08-30 06:02] LABS: Blood Urea Nitrogen 9 mg/dL (7-17); Calcium 8.4 mg/dL (8.4-10.2); Carbon Dioxide 28 mmol/L (22-30); Chloride 98 mmol/L (98-107); Estimated CRCL calculation 70 ml/min; Estimated Glomerular Filt Rate > 60; Glucose 84 mg/dL (65-105); Potassium 3.3 mmol/L (3.4-5.0); Sodium 131 mmol/L (137-145)
[2019-08-30] MEDS: AMLODIPINE BESYLATE 5 MG TABLET 10 MG PO (08:52)
[2019-08-30] MEDS: DOCUSATE SODIUM 100 MG CAPSULE PO (08:52)
[2019-08-30] MEDS: LIDOCAINE 5% PATCH 1 PATCH TRANSDERM (08:53)
[2019-08-30] MEDS: LOSARTAN POTASSIUM 100 MG TABLET PO (08:53)
[2019-08-30] MEDS: PANTOPRAZOLE SOD SESQUIHYDRATE 20 MG TAB PO (08:54)
[2019-08-30] MEDS: METOPROLOL TARTRATE 50 MG TAB PO (08:54)
[2019-08-30] MEDS: predniSONE 10 MG TABLET PO (08:55)
[2019-08-30] MEDS: TRIFLUOPERAZINE HCL 1 MG TABLET PO (08:55)
[2019-08-30] MEDS: MORPHINE SULFATE 30 MG TABCR PO (09:00)
--- NOTE | 2019-08-30 10:38 | PCNWS ---
Weekly nutritional screen. Patient is tolerating current diet with adequate intake. No weight loss reported. No nutritional needs at this time.
[2019-08-30] MEDS: FONDAPARINUX SODIUM 2.5 MG/0.5 ML SYRINGE SUB-Q (12:24)
--- NOTE | 2019-08-30 13:50 | PM.DS ---
DS: Diagnosis Admitting Diagnosis Admitting Diagnosis: Unspecified intracapsular fracture of left femur, initial encounter for closed fracture Discharge Diagnosis (1) Hyponatremia: Code(s): E87.1 - Hypo-osmolality and hyponatremia Status: Acute Assessment and Plan: -----Improved today with IV fluids and better pain management.Her fractional excretion of urea came back 23% which would favor pre renal. 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 adrenal crises not likely as the patient was stress dosed steroids. She usually takes diuretics and these have been stopped at discharge. I told patient if she starts to have swelling that she could take this medication again but she will need to talk to her primary care doctor to have her sodium monitored closely. (2) Subcapital fracture of left hip: Qualifiers: Encounter type: initial encounter Fracture type: closed Qualified Code(s): S72.012A - Unspecified intracapsular fracture of left femur, initial encounter for closed fracture Code(s): S72.012A - Unspecified intracapsular fracture of left femur, initial encounter for closed fracture Status: Acute (3) Chronic back pain: Code(s): M54.9 - Dorsalgia, unspecified; G89.29 - Other chronic pain Status: Chronic (4) Hypertension: Code(s): I10 - Essential (primary) hypertension Status: Chronic (5) Eczema: Code(s): L30.9 - Dermatitis, unspecified Status: Chronic (6) Depression with anxiety: Code(s): F41.8 - Other specified anxiety disorders Status: Chronic (7) Hypothyroidism: Code(s): E03.9 - Hypothyroidism, unspecified Status: Chronic (8) Acute respiratory failure with hypoxia: Code(s): J96.01 - Acute respiratory failure with hypoxia Status: Acute DS: Summary Hospital Course Reason for hospitalization: Hip fracture after fall Hospital Course: Patient is an 83-year-old female who lost her balance at home and fell and broke her left hip. Vitals in the ER were temperature 97.7?, pulse 60, respiratory rate 22, blood pressure 172/89, pulse ox 97 on room air. CBC within normal limits. Sodium 133, potassium 3.8, chloride 93, carbon dioxide 33, BUN 17, creatinine 0.6, glucose 134. Head CT did not show any acute processes. Cervical spine did not show fracture. Hip x-ray showed acute subcapital fracture of left femoral neck, lumbar spine showed new anterior wedge fracture at L1 with some stable compression fractures of T11. Admitted to the hospitalist service and underwent a left hip hemiarthroplasty on August 23 and she did well with this with no complications. After surgery, her sodium dropped down from initially 133 at the lowest to 123. She did not have any symptoms of this. 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 The diuretics were held throughout her stay and she received IV fluids. This eventually made her sodium improved and was 131 the day of discharge. She was told not to continue her diuretic unless she started to have swelling. If she started taking her diuretic again she would need to Dr. primary care physician so her sodium could be followed. The patient required more rehab and was discharged to the rehab center at [facility]. Time Spent with Patient Time attestation: Total time spent providing and/or coordinating discharge services: Exam Narrative: Exam Narrative: General: Well developed well nourished patient resting comfortably in bed in no acute distress HEENT: normocephalic, ecchymosis around the left eye with pain to palpation. Able to move her eye in all directions. Neck: supple Neuro: Alert oriented x4. CV: Regular rate and rhythm Resp:CTA Abd: Soft, non distended. No pain to palpation to the abdomen. Positive bowel sounds Extremities: Incision intact without excessive draining, erythema, or bleeding on t
[2019-08-30 13:52] VITALS: BP 114/58; PULSE 74; RESP 16; TEMP 36.5; O2SAT 95
--- NOTE | 2019-08-30 14:42 | PC.NURSE ---
report given to navdeep @ [facility].
== END 2019-08-30 15:00 | DRG 470 ==
LOC: ANHED 15:31 → ANH3MEDSUR 15:48
PROVIDERS: Nurse Practitioner; Orthopaedic Surgery; Physician Assistant; Admitting Provider Internal Medicine; Emergency Provider Emergency Medicine; PCP Family Medicine Adolescent Medicine; Visit Provider Internal Medicine
PROC: 0SRS01A Replacement of Left Hip Joint, Femoral Surface with Metal Synthetic Substitute, Uncemented, Open Approach (ICD-10-PCS; CPT 27125; principal; 2019-08-24 10:30)
DX: S72.012A Unspecified intracapsular fracture of left femur, initial encounter for closed fracture (principal); E22.2 Syndrome of inappropriate secretion of antidiuretic hormone; I10 Essential (primary) hypertension; M54.9 Dorsalgia, unspecified; G89.29 Other chronic pain; L30.9 Dermatitis, unspecified; K57.90 Diverticulosis of intestine, part unspecified, without perforation or abscess without bleeding; E03.9 Hypothyroidism, unspecified; M85.80 Other specified disorders of bone density and structure, unspecified site; F41.8 Other specified anxiety disorders; W19.XXXA Unspecified fall, initial encounter; Z90.710 Acquired absence of both cervix and uterus; Z85.72 Personal history of non-Hodgkin lymphomas; Z98.42 Cataract extraction status, left eye; Z98.41 Cataract extraction status, right eye
CPT/HCPCS: 36415; 70450; 70486; 71045; 72100; 72125; 73501; 73502; 74176; 80048; 80053; 81003; 82306; 82570; 83735; 84295; 84300; 84443; 84540; 85014; 85018; 85025; 85027; 86850; 86900; 86901; 93005; 96374; 96376; 97110; 97116; 97162; 97165; 97530; 97535; 99285; A9270; C1776; J0330; J0690; J1100; J1170; J1652; J1720; J2270; J2370; J2405; J2704; J3010; J7030; J7120; J7512

== ENCOUNTER 2019-08-30 15:30 | IRF | payer OTHER, SELFPAY ==
--- NOTE | ~2019-08-30 | US_ITS ---
US breast LT limited DATE: 09/09/2019 15:18 INDICATION: Left breast and axillary mass, pain TECHNIQUE: Real-time and color flow imaging of the left breast targeted to 2:00 area COMPARISON: None FINDINGS: There is a complex approximately 3.7 x 12 x 5.5 cm mass at 2:00 14 cm from the nipple. This is a multiloculated cystic lesion with thick irregular septations. Abscess would be a primary consid eration. Malignancy is included in the differential diagnosis. IMPRESSION: BI-RADS Category 4: Suspicious;; aspiration or biopsy with ultrasound guidance is recomme nded Reviewed, dictated and finalized at [facility]. Reviewed, dictated and finalized at location A. IMPRESSION: BI-RADS Category 4: Suspicious;; aspiration or biopsy with ultrasou nd guidance is recommended
--- NOTE | ~2019-08-30 | CT_ITS ---
EXAMINATION: CTA chest PE protocol DATE: 09/04/2019 09:11 INDICATION: Dyspnea TECHNIQUE: Computed tomography angiography (CTA) of the chest was performed with 100 mL Omnipaque-350 intravenous contrast timed to evaluate the pulmonary arteries. Coronal maximum intensity projection 3D-reconstructions were created by the technologist. Automated exposure control and iterative reconst ruction technique were employed. Exam dose: 515.96 mGy-cm total exam DLP. COMPARISON: 08/26/2019 portable AP chest FINDINGS: There is diagnostic contrast enhancement of the pulmonary arteries and no evidence of pulmo nary embolism. No thoracic aortic aneurysm or dissection. No hilar or mediastinal mass lesion or lymphadenopathy. There is bibasilar atelectasis, most prominent in the lower lobes. Cardiomegaly. No pericardial effusion or pleural effusion. There is mild compression fracture deformity of T2. There is burst fracture deformities of T11, T12 and L1. Status post vertebroplasty at T12. Diffuse osteopenia. IMPRESSION: No evidence of pulmonary embolism Prominent bilateral lung atelectasis, involving particularly the lower lobes Multiple fracture deformities of the thoracic and lumbar spine Reviewed, dictated and finalized at [facility]. Reviewed, dictated and finalized at location A.
--- NOTE | ~2019-08-30 | US_ITS ---
EXAMINATION:US venous doppler LE BI INDICATION:Post left hip replacement. Leg swelling. TECHNIQUE: Multiple grayscale, color flow and Doppler images of the lower extremity deep venous syste ms were obtained and reviewed. COMPARISON:No prior studies for comparison. FINDINGS: There is deep venous thrombosis of the right common femoral and femoral veins. There is kasie p venous thrombosis of the left profunda femoral vein. IMPRESSION: 1: Bilateral deep venous thrombosis. Reviewed, dictated and finalized at location A.
--- NOTE | ~2019-08-30 | US_ITS ---
EXAMINATION: US venous doppler [facility] DATE: 09/14/2019 10:51 INDICATION: Chest pain. TECHNIQUE: Grayscale ultrasound images without and with compression and Doppler ultrasound images of the bilateral lower extremity veins were obtained. COMPARISON: Ultrasound 09/03/2019 FINDINGS: The visualized portions of right common femoral vein, profunda (deep) femoral vein, femoral vein, pop liteal vein, peroneal veins, posterior tibial veins, and greater saphenous vein outflow are patent. The visualized portions of left common femoral vein, profunda femoral vein, femoral vein, popliteal v ein, peroneal veins, posterior tibial veins, and greater saphenous vein outflow are patent. IMPRESSION: 1. No deep venous thrombosis. Reviewed, dictated and finalized at location E.
--- NOTE | 2019-08-30 16:18 | ADMGEN ---
Patient arrived via bed from [address] [place] [address] at 1530. Alert and orientated. This patient, Haritha Howard, was admitted to [facility] Room 223-01. Patient/family oriented to hospital policies and general routines including ID bracelet, bed and alarms, visiting hours, pain management, procedures, bathroom and other care routines, personal items, smoking policy, room service/diet, and visiting hours. Valuables list has been completed. Information on how to activate the Rapid Response Team has been discussed. Patient/Family are encouraged to report perceived risks to care and to ask questions if they do not understand what they are told or what they should do.
[2019-08-30 16:41] VITALS: BP 132/63; PULSE 74; RESP 18; TEMP 36.5; O2SAT 95
[2019-08-30 16:42] VITALS: BMI 28.9
[2019-08-30] MEDS: DOCUSATE SODIUM 100 MG CAPSULE PO (17:36)
[2019-08-30 20:31] VITALS: PULSE 82
[2019-08-30] MEDS: MORPHINE SULFATE 15 MG TABCR 30 MG PO (20:31)
[2019-08-30] MEDS: METOPROLOL TARTRATE 50 MG TAB PO (20:31)
[2019-08-30 22:00] VITALS: BP 142/76; PULSE 79; RESP 18; TEMP 36.9; O2SAT 95
[2019-08-31 04:38] LABS: Basophils Percent Auto 0.2 % (0.2-1.2); Eosinophils Absolute Auto 0.1 K/mm3 (0-0.3); Eosinophils Percent Auto 1.2 % (0-4.4); Hematocrit 25.7 % (37.0-47.0); Hemoglobin 8.5 g/dL (12.0-15.0); Immature Granulocyte Absolute 0.06 K/mm3 (0.00-0.031); Immature Granulocyte Percent A 1.2 % (0-0.5); Lymphocytes Absolute Auto 1.02 K/mm3 (0.9-3.2); Lymphocytes Percent Auto 20.3 % (18.3-44.2); Mean Corpuscular HGB Conc 33.1 g/dl (32-36); Mean Corpuscular Hemoglobin 29.6 pg (26-34); Mean Corpuscular Volume 89.5 fl (80-100); Mean Platelet Volume 8.6 fl (7.4-10.4); Monocytes Absolute Auto 0.5 K/mm3 (0.1-0.6); Monocytes Percent Auto 10.8 % (2.6-8.5); Neutrophils Absolute Auto 3.3 K/mm3 (1.3-6.7); Neutrophils Percent Auto 66.3 % (45.5-73.1); Nucleated Red Blood Cells Perc 0.8 % (0.0-0.2); Platelet Count Result 276 k/mm3 (150-375); Red Blood Count 2.87 M/mm3 (4.2-5.4)
[2019-08-31 04:59] LABS: Blood Urea Nitrogen 10 mg/dL (7-17); Calcium 8.5 mg/dL (8.4-10.2); Carbon Dioxide 30 mmol/L (22-30); Chloride 98 mmol/L (98-107); Estimated CRCL calculation 67 ml/min; Estimated Glomerular Filt Rate > 60; Glucose 85 mg/dL (65-105); Potassium 3.2 mmol/L (3.4-5.0); Sodium 130 mmol/L (137-145)
[2019-08-31 06:00] VITALS: BP 144/63; PULSE 85; RESP 18; TEMP 37.2; O2SAT 93
[2019-08-31] MEDS: LEVOTHYROXINE SODIUM 75 MCG TABLET PO (06:25)
--- NOTE | 2019-08-31 08:00 | WPDREHABHP ---
H&P: HPI History of Present Illness Chief complaint: bipolar left hip replacement Narrative: Haritha Howard is a 83 year old female HISTORY OF PRESENT ILLNESS: The patient's primary rehab impairment category is orthopedic/lower extremity fracture The etiologic diagnosis is acute subcapital fracture of the left femoral neck I saw this patient [id number] on August at 8:00 a.m. The patient is a 83-year-old right-handed white woman with a past medical history of B-cell lymphoma, chronic back pain, osteopenia, and hypertension who presented to [facility] on August 23, 2019 after a fall at home. The patient reported that she fell backward and landed on her left hip and hit her head. There was no loss of consciousness. EMS brought her with cervical collar. Head CT demonstrated worsening extensive nonspecific cerebral white matter disease likely representing chronic small ischemic disease. CT of the cervical spine was negative for fracture but revealed severe cervical spondylosis. Left hip x-ray revealed acute suboccipital fracture of the left femur neck and moderate osteoarthritis of bilateral hips lumbar x-rays demonstrated diffuse severe osteopenia with stable compression fracture deformity of T11 and chronic burst fracture of T12 with evidence of vertebroplasty. It is worth mentioning that the patient has had back pain prior related to this fracture. The orthopedic physician performed a left hip NV arthroplasty on August 24, 2019. The patient was currently on 1 liter of oxygen which is going to be weaned off. On 08/[address] of the abdomen /pelvis showed interval development of superior endplate fracture of L1-L2 bilateral lower lobe atelectasis / scarring with small right fusion, high-density material in the gallbladder which may represent sludge or stones, nonobstructing left nephrolithiasis and motor size hiatal hernia. Postoperatively she has experienced acute postoperative pain acute back pain from stable compression fracture of T11 acute blood-loss anemia hypertension hypercapnia, hyponatremia and hypokalemia. Patient is sitting steroids and will continue on 10 milligram prednisone daily. She had weight-bearing as tolerated and has dissection of left total hip arthroplasty she is on Arixtra for DVT prophylaxis Therapy was initiated at the acute care facility and the patient transferred to us from [facility] on August 30, 2019 FALLS OR SURGERIES: The patient has had major surgeries in the 100 days prior to admission. They had falls in the past year. They had falls with injury in the past year. PAST MEDICAL HISTORY: B-cell lymphoma ( intolerant of radiation), chronic back pain, depression, anxiety, osteopenia, eczema, gastroesophageal reflux disease, hypertension, hypothyroidism PAST SURGICAL HISTORY: cataract extraction, cochlear implant, hemorrhoidectomy, kyphoplasty, bladder suspension, removal of skin lesion, tonsillectomy, total hysterectomy with BSO SOCIAL HISTORY: patient is retired and lives alone in a mobile home with 4 steps to enter. Her daughter lives next door and the visit together several times a day. prior to this admission the patient was totally independent in both ADLs and IADLs less. For bathing the patient use the shower at her daughter's home weekly but in our wound home with spent beds standing at the sink. Patient did not use an assistive device at home. She reported she sometimes use a cane or Rollator when in community. Patient is very motivated and wants to complete T [facility] program so that she can return home independently. She has adaptive equipment of a 3 in 1 commode cane large base quad cane walker and will enter at home. Patient denies tobacco alcohol or illicit use of drug FAMILY HISTORY: father had pulmonary embolism, diabetes mellitus. Mother had heart failure. Sibling acute myocardial infarction other cerebrovascular accident blood dyscrasias cardiovascular disease h
[2019-08-31] MEDS: AMLODIPINE BESYLATE 5 MG TABLET 10 MG PO (08:22)
[2019-08-31] MEDS: polyethylene glycoL 3350 17 GM POWD.PACK PO (08:22)
[2019-08-31] MEDS: DOCUSATE SODIUM 100 MG CAPSULE PO ×2 (08:23→18:29)
[2019-08-31] MEDS: FLUTICASONE PROPIONATE 0.05% NA SPR 16 GM BTL (*BKC) 1 SPRAY NASAL (08:24)
[2019-08-31] MEDS: FONDAPARINUX SODIUM 2.5 MG/0.5 ML SYRINGE SUB-Q (08:24)
[2019-08-31 08:25] VITALS: PULSE 85
[2019-08-31] MEDS: METOPROLOL TARTRATE 50 MG TAB PO ×2 (08:25→20:35)
[2019-08-31] MEDS: LOSARTAN POTASSIUM 100 MG TABLET PO (08:25)
[2019-08-31] MEDS: MORPHINE SULFATE 15 MG TABCR 30 MG PO ×2 (08:26→20:36)
[2019-08-31] MEDS: OMEGA 3 POLYUNSAT FATTY ACIDS 1 GM CAP PO (08:27)
[2019-08-31] MEDS: OPTI-GEN TAB 1 TABLET PO (08:27)
[2019-08-31] MEDS: PANTOPRAZOLE 40 MG TABLET PO (08:27)
[2019-08-31] MEDS: TRIFLUOPERAZINE HCL 1 MG TABLET 2 MG PO (08:28)
[2019-08-31] MEDS: predniSONE 10 MG TABLET PO (08:28)
[2019-08-31 12:29] VITALS: BMI 28.9
[2019-08-31 14:00] VITALS: BP 138/72; PULSE 85; RESP 19; TEMP 36.4; O2SAT 99
--- NOTE | 2019-08-31 16:32 | RPD ---
INDIVIDUALIZED PLAN OF CARE FOR Haritha Howard Brief Synthesis of Pre-Admission Screen, Post-Admission Evaluation and Therapy Evaluations: The patient presents to rehab with an acute subcapital fracture of the left femoral neck. Comorbidities include small pleural effusions, hypothyroidism, osteopenia, depression, anxiety, diverticulosis, eczema, chronic back pain, hypertension, severe cervical spondylosis, acute postoperative pain, acute blood loss anemia, hypercapnia, hyponatremia, hypokalemia, hypoalbuminemia, hypotension and stable compression fracture deformity of T11.The patient requires physician services for medical oversight, management of postop complications in setting of present comorbidities, and pain management.The patient requires nursing services for DVT prophylactics, infection protection, medication management and education,pressure relief, and wound care. Deficits include: ADLs, Balance, Endurance, Family Training/Education, Mobility, Pain Management, ROM, Safety, Strength, and Transfer. Drop Forger Helper/Case Management for: Discharge Planning and Patient/Family Counseling Physical Therapy: 5 days per week for 90 minutes. Treatments may include: Therapeutic Exercise, Gait Training, Neuromuscular Re-education, Transfer Training, Community Reintegration, Bed Mobility, Patient/Family Education, Wheelchair Mobility Group Therapy/Concurrent Therapy Rationales: -Improve attention span during functional activities in a distracted environment. -Enhance problem solving and/or adequate judgment skills during functional activities in a distracted environment. -Promote increased safety awareness in a distracted environment to reduce fall risk with functional tasks, transfers, and ambulation to allow a more safe, self-sufficient return to the home environment. -Improve dynamic balance skills to promote safety and independence with functional activities in a distracted environment for maximum gain. Occupational Therapy: 5 days per week for 90 minutes. Treatments may include: Therapeutic Exercise, Therapeutic Activity, Cognitive Training, Self-Care Transfer Training, Community Reintegration, Home Management, Patient/Family Education, Wheelchair Mobility Training, Energy Conservation Training Group Therapy/Concurrent Therapy Rationales: -Allow therapist to observe and teach generalization and carry-over of skills learned in individual therapy. -Enhance problem solving and sequencing skills during therapeutic activities in a distracted environment. -Promote increased safety awareness in a realistic setting to reduce fall risk with functional tasks due to visual and verbal distractions. -Increase functional level with ADLs, ADL transfers and use of adaptive equipment through therapeutic activities with others while promoting safety to allow a more safe, self-sufficient return home. Medical Prognosis: Good Anticipated Length of Stay: 14 days Rehab Goals: Eating Goal: 06-Independent Oral Hygiene Goal: 06-Independent Toileting Hygiene Goal: 06-Independent Shower/Bathe Self Goal: 04-Supervision or Touching Assistance Upper Body Dressing Goal: 06-Independent Lower Body Dressing Goal: 04-Supervision or Touching Assistance Putting On/Taking Off Footwear Goal: 04-Supervision or Touching Assistance Rolling Left and Right Goal: 06-Independent Sit to Lying Goal: 06-Independent Lying to Sitting on Side of Bed Goal: 06-Independent Sit to Stand Goal: 06-Independent Chair/Jrg-fz-Suuyi Transfer Goal: 06-Independent Toilet Transfer Goal: 06-Independent Car Transfer Goal: 03-Partial/Moderate Assistance Walk 10' Goal: 06-Independent Walk 50' with Two Turns Goal: 06-Independent Walk 150' Goal: 09-Not Applicable Walk 10' on Uneven Surface Goal: 06-Independent 1 Step (Curb) Goal: 03-Partial/Moderate Assistance 4 Steps Goal: 03-Partial/Moderate Assistance 12 Steps Goal Score: 01-Dependent Picking Up Object Goal: 06-Independent Wheel 50' with Two Turns Score: 06-Independ
[2019-08-31 20:00] VITALS: PULSE 78; RESP 18; O2SAT 95
[2019-08-31 20:35] VITALS: PULSE 78
[2019-08-31 22:00] VITALS: BP 124/66; PULSE 78; RESP 18; TEMP 36.6; O2SAT 95
[2019-09-01 06:00] VITALS: BP 149/92; PULSE 66; RESP 20; TEMP 36.5; O2SAT 92
[2019-09-01] MEDS: LEVOTHYROXINE SODIUM 75 MCG TABLET PO (06:31)
[2019-09-01 08:23] VITALS: PULSE 66
[2019-09-01] MEDS: polyethylene glycoL 3350 17 GM POWD.PACK PO (08:23)
[2019-09-01] MEDS: LOSARTAN POTASSIUM 100 MG TABLET PO (08:23)
[2019-09-01] MEDS: FONDAPARINUX SODIUM 2.5 MG/0.5 ML SYRINGE SUB-Q (08:23)
[2019-09-01] MEDS: POTASSIUM CHLORIDE 20 MEQ TABLET.ER PO (08:23)
[2019-09-01] MEDS: OPTI-GEN TAB 1 TABLET PO (08:23)
[2019-09-01] MEDS: predniSONE 10 MG TABLET PO (08:23)
[2019-09-01] MEDS: METOPROLOL TARTRATE 50 MG TAB PO ×2 (08:23→21:04)
[2019-09-01] MEDS: AMLODIPINE BESYLATE 5 MG TABLET 10 MG PO (08:24)
[2019-09-01] MEDS: MORPHINE SULFATE 15 MG TABCR 30 MG PO ×2 (08:24→21:03)
[2019-09-01] MEDS: DOCUSATE SODIUM 100 MG CAPSULE PO ×2 (08:25→15:51)
[2019-09-01] MEDS: FLUTICASONE PROPIONATE 0.05% NA SPR 16 GM BTL (*BKC) 1 SPRAY NASAL (08:25)
[2019-09-01] MEDS: OMEGA 3 POLYUNSAT FATTY ACIDS 1 GM CAP PO (08:25)
[2019-09-01] MEDS: PANTOPRAZOLE 40 MG TABLET PO (08:25)
[2019-09-01] MEDS: TRIFLUOPERAZINE HCL 1 MG TABLET 2 MG PO (09:24)
--- NOTE | 2019-09-01 11:59 | PCDIET ---
Patient requesting strawberry flavored supplement. Recommend change from Ensure Compact (chocolate and vanilla flavors only) to strawberry Ensure Enlive (350kcal, 20g protein) BID.
--- NOTE | 2019-09-01 13:37 | WPDNEURORHBP ---
Subjective Date/time seen: 09/01/19 13:37 Interval history: this pleasant 83-year-old woman is here after having had bipolar left hip replacement she is doing fairly well denies any headache nausea vomiting chest pain or shortness of breath fever chills or sore throat and engage in therapy Review of Systems Review of Systems: All systems reviewed & are unremarkable except as noted in HPI and below Functional Status Ambulation Ability Ambulation Assistive Devices: Walker, Wheeled Transfers Ability Ability to Transfer In/Out of Chair: Minimum Assistance X 1 Exam Const: General: comfortable and no acute distress HENMT: General nose exam: Normal nares present Mouth: Yes moist mucous membranes Eyes: General: appearance normal, both eyes and all related structures Neck: Neck: supple and no JVD Resp: Effort & Inspection: normal respiratory effort Auscultation: clear to auscultation bilaterally Cardio: Rate: regular rate Rhythm: regular rhythm GI: GI Palp: Yes Soft to palpation Auscultation: normal bowel sounds Skin: General skin exam: normal color and no rashes or lesions noted Neuro: Other: patient is awake and alert well oriented time place and person has normal speech and language function normal to examination decreased strength needing assistance in all the activities of daily living Extrem: Other: the incision from the surgery is clean Psych: Mental Status: mental status grossly normal Objective Data Vital Signs Vital Signs: Vital Signs - 24 hr 08/31/19 14:00 08/31/19 20:00 08/31/19 20:35 Temperature 36.4 C L Pulse Rate 85 78 78 Respiratory Rate 19 18 Blood Pressure 138/72 Pulse Oximetry 99 95 08/31/19 22:00 09/01/19 06:00 09/01/19 08:23 Temperature 36.6 C 36.5 C Pulse Rate 78 66 66 Respiratory Rate 18 20 Blood Pressure 124/66 149/92 H Pulse Oximetry 95 92 Intake/Output Intake/Output: Intake & Output 08/29/19 08/30/19 08/31/19 09/01/19 23:59 23:59 23:59 23:59 Intake Total 240 820 700 Balance 240 820 700 Meds/Results Medications: Active Medications Generic Name Dose Route Start Last Admin Trade Name Freq PRN Reason Stop Dose Admin Amlodipine Besylate 10 mg 08/31/19 09:00 09/01/19 08:24 Norvasc PO 10 mg DAILY ABDULLAHI Administration Artificial Tears 1 drop 08/30/19 17:07 Artificial Tears EACH EYE PRN PRN Dry Eye(s) Calcium Carbonate 500 mg 08/31/19 09:00 09/01/19 08:24 Os-Oscar 500 +D Tablet PO 500 mg QAM ABDULLAHI Administration Cyclosporine 1 drop 08/30/19 21:00 09/01/19 08:23 Restasis EACH EYE 1 drop Q12HR ABDULLAHI Administration Docusate Sodium 100 mg 08/30/19 17:00 09/01/19 08:25 Colace Capsule PO 100 mg BID ABDULLAHI Administration Fish Oil 1 gm 08/31/19 09:00 09/01/19 08:25 Lovaza PO 1 gm DAILY ABDULLAHI Administration Fluticasone Propionate 1 spray 08/31/19 09:00 09/01/19 08:25 Flonase 0.05% Nasal [place] NASAL 1 spray DAILY ABDULLAHI Administration Fondaparinux 2.5 mg 08/31/19 09:00 09/01/19 08:23 Arixtra SUB-Q 09/28/19 09:01 2.5 mg DAILY ABDULLAHI Administration Furosemide 40 mg 08/30/19 16:49 Lasix Tablet PO DAILY PRN swelling Levothyroxine Sodium 75 mcg 08/31/19 06:30 09/01/19 06:31 Synthroid PO 75 mcg DAILY@0630 ABDULLAHI Administration Losartan Potassium 100 mg 08/31/19 09:00 09/01/19 08:23 Cozaar PO 100 mg DAILY ABDULLAHI Administration Magnesium Hydroxide 30 ml 08/30/19 17:03 Milk Of Magnesia PO DAILY PRN Constipation Metoprolol Tartrate 50 mg 08/30/19 21:00 09/01/19 08:23 Lopressor PO 50 mg Q12HR ABDULLAHI Administration Morphine Sulfate 30 mg 08/30/19 21:00 09/01/19 08:24 Ms Contin PO 30 mg Q12HR ABDULLAHI Administration Multivitamins/Minerals 1 tablet 08/31/19 09:00 09/01/19 08:23 Ocuvite PO 1 tablet DAILY ABDULLAHI Administration Oxycodone HCl 5 mg 08/30/19 16:49 09/01/19 11:09 Roxicodone Ir Tablet PO 5 mg
[2019-09-01 14:00] VITALS: BP 142/62; PULSE 71; RESP 17; TEMP 36.7; O2SAT 95
[2019-09-01 22:00] VITALS: BP 143/67; PULSE 77; RESP 19; TEMP 36.9; O2SAT 96
[2019-09-02 06:00] VITALS: BP 142/64; PULSE 71; RESP 18; TEMP 36.7; O2SAT 95
[2019-09-02] MEDS: LEVOTHYROXINE SODIUM 75 MCG TABLET PO (06:29)
[2019-09-02] MEDS: FONDAPARINUX SODIUM 2.5 MG/0.5 ML SYRINGE SUB-Q (08:41)
[2019-09-02] MEDS: FLUTICASONE PROPIONATE 0.05% NA SPR 16 GM BTL (*BKC) 1 SPRAY NASAL (08:41)
[2019-09-02] MEDS: TRIFLUOPERAZINE HCL 1 MG TABLET 2 MG PO (08:42)
[2019-09-02] MEDS: MORPHINE SULFATE 15 MG TABCR 30 MG PO ×2 (08:42→20:40)
[2019-09-02 08:43] VITALS: PULSE 71
[2019-09-02] MEDS: predniSONE 10 MG TABLET PO (08:43)
[2019-09-02] MEDS: POTASSIUM CHLORIDE 20 MEQ TABLET.ER PO (08:43)
[2019-09-02] MEDS: AMLODIPINE BESYLATE 5 MG TABLET 10 MG PO (08:43)
[2019-09-02] MEDS: DOCUSATE SODIUM 100 MG CAPSULE PO ×2 (08:43→17:23)
[2019-09-02] MEDS: PANTOPRAZOLE 40 MG TABLET PO (08:43)
[2019-09-02] MEDS: OMEGA 3 POLYUNSAT FATTY ACIDS 1 GM CAP PO (08:43)
[2019-09-02] MEDS: METOPROLOL TARTRATE 50 MG TAB PO ×2 (08:43→20:40)
[2019-09-02] MEDS: OPTI-GEN TAB 1 TABLET PO (08:43)
[2019-09-02] MEDS: LOSARTAN POTASSIUM 100 MG TABLET PO (08:43)
[2019-09-02] MEDS: polyethylene glycoL 3350 17 GM POWD.PACK PO (08:44)
--- NOTE | 2019-09-02 13:02 | WPDNEURORHBP ---
Subjective Date/time seen: 09/02/19 13:02 Interval history: this 83-year-old woman is here with the bipolar left hip replacement her pain is fairly decently controlled she denies any headache nausea vomiting chest pain shortness of breath fever chills sore throat Review of Systems Review of Systems: All systems reviewed & are unremarkable except as noted in HPI and below Functional Status Ambulation Ability Ability to Ambulate 10 Feet: Minimum Assistance X 1 Ambulation Assistive Devices: Walker, Wheeled Transfers Ability Ability to Transfer In/Out of Chair: Minimum Assistance X 1 Exam Const: General: comfortable and no acute distress HENMT: General nose exam: Normal nares present Mouth: Yes moist mucous membranes Eyes: General: appearance normal, both eyes and all related structures Neck: Neck: supple and no JVD Resp: Effort & Inspection: normal respiratory effort Auscultation: clear to auscultation bilaterally Cardio: Rate: regular rate Rhythm: regular rhythm GI: GI Palp: Yes Soft to palpation Auscultation: normal bowel sounds Skin: General skin exam: normal color and no rashes or lesions noted Neuro: Other: she remains awake alert well oriented time place and person with normal speech and language function normal cranial nerve examination she is a on restricted weight-bearing on the left lower extremity with doing fairly well without any lateralizing focal deficit Extrem: Other: swelling of the left leg more than the right leg is seen clean and healthy Psych: Mental Status: mental status grossly normal Objective Data Vital Signs Vital Signs: Vital Signs - 24 hr 09/02/19 14:00 09/02/19 20:40 09/02/19 21:09 Temperature 36.3 C L 37.1 C Pulse Rate 78 78 77 Respiratory Rate 18 20 Blood Pressure 148/70 H 125/73 Pulse Oximetry 96 98 09/03/19 06:00 09/03/19 08:32 Temperature 36.9 C Pulse Rate 57 L 57 L Respiratory Rate 20 Blood Pressure 138/58 L Pulse Oximetry 94 Intake/Output Intake/Output: Intake & Output 08/31/19 09/01/19 09/02/19 09/03/19 23:59 23:59 23:59 23:59 Intake Total 820 940 840 360 Balance 820 940 840 360 Meds/Results Medications: Active Medications Generic Name Dose Route Start Last Admin Trade Name Freq PRN Reason Stop Dose Admin Amlodipine Besylate 10 mg 08/31/19 09:00 09/03/19 08:32 Norvasc PO 10 mg DAILY ABDULLAHI Administration Artificial Tears 1 drop 08/30/19 17:07 Artificial Tears EACH EYE PRN PRN Dry Eye(s) Calcium Carbonate 500 mg 08/31/19 09:00 09/03/19 08:33 Os-Oscar 500 +D Tablet PO 500 mg QAM ABDULLAHI Administration Cyclosporine 1 drop 08/30/19 21:00 09/03/19 08:33 Restasis EACH EYE 1 drop Q12HR ABDULLAHI Administration Docusate Sodium 100 mg 08/30/19 17:00 09/03/19 08:32 Colace Capsule PO 100 mg BID ABDULLAHI Administration Fish Oil 1 gm 08/31/19 09:00 09/03/19 08:32 Lovaza PO 1 gm DAILY ABDULLAHI Administration Fluticasone Propionate 1 spray 08/31/19 09:00 09/03/19 08:31 Flonase 0.05% Nasal [place] NASAL 1 spray DAILY ABDULLAHI Administration Fondaparinux 2.5 mg 08/31/19 09:00 09/03/19 08:31 Arixtra SUB-Q 09/28/19 09:01 2.5 mg DAILY ABDULLAHI Administration Furosemide 40 mg 08/30/19 16:49 Lasix Tablet PO DAILY PRN swelling Levothyroxine Sodium 75 mcg 08/31/19 06:30 09/03/19 06:18 Synthroid PO 75 mcg DAILY@0630 ABDULLAHI Administration Losartan Potassium 100 mg 08/31/19 09:00 09/03/19 08:33 Cozaar PO 100 mg DAILY ADBULLAHI Administration Magnesium Hydroxide 30 ml 08/30/19 17:03 Milk Of Magnesia PO DAILY PRN Constipation Metoprolol Tartrate 50 mg 08/30/19 21:00 09/03/19 08:32 Lopressor PO 50 mg Q12HR ABDULLAHI Administration Morphine Sulfate 30 mg 08/30/19 21:00 09/03/19 08:32 Ms Contin PO 30 mg Q12HR ABDULLAHI Administration Multivitamins/Minerals 1 tablet 08/31/19 09:00 09/03/19 08:32 Ocuvite PO 1 tablet DAILY
[2019-09-02 14:00] VITALS: BP 148/70; PULSE 78; RESP 18; TEMP 36.3; O2SAT 96
[2019-09-02 20:40] VITALS: PULSE 78
[2019-09-02 21:09] VITALS: BP 125/73; PULSE 77; RESP 20; TEMP 37.1; O2SAT 98
[2019-09-03 06:00] VITALS: BP 138/58; PULSE 57; RESP 20; TEMP 36.9; O2SAT 94
[2019-09-03] MEDS: LEVOTHYROXINE SODIUM 75 MCG TABLET PO (06:18)
[2019-09-03] MEDS: FLUTICASONE PROPIONATE 0.05% NA SPR 16 GM BTL (*BKC) 1 SPRAY NASAL (08:31)
[2019-09-03] MEDS: FONDAPARINUX SODIUM 2.5 MG/0.5 ML SYRINGE SUB-Q (08:31)
[2019-09-03 08:32] VITALS: PULSE 57
[2019-09-03] MEDS: METOPROLOL TARTRATE 50 MG TAB PO ×2 (08:32→20:18)
[2019-09-03] MEDS: MORPHINE SULFATE 15 MG TABCR 30 MG PO ×2 (08:32→20:17)
[2019-09-03] MEDS: DOCUSATE SODIUM 100 MG CAPSULE PO ×2 (08:32→17:10)
[2019-09-03] MEDS: PANTOPRAZOLE 40 MG TABLET PO (08:32)
[2019-09-03] MEDS: AMLODIPINE BESYLATE 5 MG TABLET 10 MG PO (08:32)
[2019-09-03] MEDS: TRIFLUOPERAZINE HCL 1 MG TABLET 2 MG PO (08:32)
[2019-09-03] MEDS: OPTI-GEN TAB 1 TABLET PO (08:32)
[2019-09-03] MEDS: predniSONE 10 MG TABLET PO (08:32)
[2019-09-03] MEDS: OMEGA 3 POLYUNSAT FATTY ACIDS 1 GM CAP PO (08:32)
[2019-09-03] MEDS: polyethylene glycoL 3350 17 GM POWD.PACK PO (08:32)
[2019-09-03] MEDS: POTASSIUM CHLORIDE 20 MEQ TABLET.ER PO (08:33)
[2019-09-03] MEDS: LOSARTAN POTASSIUM 100 MG TABLET PO (08:33)
--- NOTE | 2019-09-03 11:26 | PCDIET ---
Nutrition Follow-Up Complete: Nutrition Diagnosis: Predicted suboptimal oral intake related to decreased appetite as evidenced by patient statement. Nutrition Goal: Patient to consume 75% of meals/supplements. Goal met. Patient has consumed an average of 79% of meals since 09/01/19. Currently on regular diet which is appropriate. Supplements discontinued due to patient refusal; however, intakes now appear adequate. Last recorded weight is 74 kg. Recommend obtaining new weight. Bowel Motility: +BM today. Labs Reviewed: No new labs available. Meds Noted: Oscal 500 + D, Colace, Lovaza, MS Contin, Ocuvite, Protonix, Miralax, KCl, Prednisone Additional Notes: Redness noted beneath breasts. Left hip surgical incision. Left elbow scab. No pressure sores documented. Will continue to monitor with same goal. Nutrition Monitoring and Evaluation: Follow up every 7 days.
[2019-09-03] MEDS: POTASSIUM CHLORIDE 20 MEQ TABLET 40 MEQ PO (13:13)
[2019-09-03 14:00] VITALS: BP 127/57; PULSE 74; RESP 18; TEMP 36.4; O2SAT 95
--- NOTE | 2019-09-03 15:08 | WPDNEURORHBP ---
Subjective Date/time seen: 09/03/19 15:08 this 83-year-old woman is here after having had surgery for the left hip fracture she is complaining of the left lower extremity swelling and uncomfortable I have order the venous Doppler on her otherwise she denies any headache nausea vomiting chest pain shortness of breath fever chills sore throat Review of Systems Review of Systems: All systems reviewed & are unremarkable except as noted in HPI and below Functional Status Ambulation Ability Ability to Ambulate 10 Feet: Minimum Assistance X 1 Ambulation Assistive Devices: Walker, Wheeled Transfers Ability Ability to Transfer In/Out of Chair: Minimum Assistance X 1 Exam Const: General: comfortable and no acute distress HENMT: General nose exam: Normal nares present Mouth: Yes moist mucous membranes Eyes: General: appearance normal, both eyes and all related structures Neck: Neck: supple and no JVD Resp: Effort & Inspection: normal respiratory effort Auscultation: clear to auscultation bilaterally Cardio: Rate: regular rate Rhythm: regular rhythm GI: GI Palp: Yes Soft to palpation Auscultation: normal bowel sounds Skin: General skin exam: normal color Neuro: Other: she remains awake alert well oriented to time place and personAny weakness she has is the to the left hip surgery Extrem: Other: swelling of the left more than the right leg and tenderness the surgical site is clean Psych: Mental Status: mental status grossly normal Objective Data Vital Signs Vital Signs: Vital Signs - 24 hr 09/02/19 20:40 09/02/19 21:09 09/03/19 06:00 Temperature 37.1 C 36.9 C Pulse Rate 78 77 57 L Respiratory Rate 20 20 Blood Pressure 125/73 138/58 L Pulse Oximetry 98 94 09/03/19 08:32 Temperature Pulse Rate 57 L Respiratory Rate Blood Pressure Pulse Oximetry Intake/Output Intake/Output: Intake & Output 08/31/19 09/01/19 09/02/19 09/03/19 23:59 23:59 23:59 23:59 Intake Total 820 940 840 780 Balance 820 940 840 780 Meds/Results Medications: Active Medications Generic Name Dose Route Start Last Admin Trade Name Freq PRN Reason Stop Dose Admin Amlodipine Besylate 10 mg 08/31/19 09:00 09/03/19 08:32 Norvasc PO 10 mg DAILY ABDULLAHI Administration Artificial Tears 1 drop 08/30/19 17:07 Artificial Tears EACH EYE PRN PRN Dry Eye(s) Calcium Carbonate 500 mg 08/31/19 09:00 09/03/19 08:33 Os-Oscar 500 +D Tablet PO 500 mg QAM ABDULLAHI Administration Cyclosporine 1 drop 08/30/19 21:00 09/03/19 08:33 Restasis EACH EYE 1 drop Q12HR ABDULLAHI Administration Docusate Sodium 100 mg 08/30/19 17:00 09/03/19 08:32 Colace Capsule PO 100 mg BID ABDULLAHI Administration Fish Oil 1 gm 08/31/19 09:00 09/03/19 08:32 Lovaza PO 1 gm DAILY ABDULLAHI Administration Fluticasone Propionate 1 spray 08/31/19 09:00 09/03/19 08:31 Flonase 0.05% Nasal [place] NASAL 1 spray DAILY ABDULLAHI Administration Fondaparinux 2.5 mg 08/31/19 09:00 09/03/19 08:31 Arixtra SUB-Q 09/28/19 09:01 2.5 mg DAILY ABDULLAHI Administration Furosemide 40 mg 08/30/19 16:49 Lasix Tablet PO DAILY PRN swelling Levothyroxine Sodium 75 mcg 08/31/19 06:30 09/03/19 06:18 Synthroid PO 75 mcg DAILY@0630 ABDULLAHI Administration Losartan Potassium 100 mg 08/31/19 09:00 09/03/19 08:33 Cozaar PO 100 mg DAILY ABDULLAHI Administration Magnesium Hydroxide 30 ml 08/30/19 17:03 Milk Of Magnesia PO DAILY PRN Constipation Metoprolol Tartrate 50 mg 08/30/19 21:00 09/03/19 08:32 Lopressor PO 50 mg Q12HR ABDULLAHI Administration Morphine Sulfate 30 mg 08/30/19 21:00 09/03/19 08:32 Ms Contin PO 30 mg Q12HR ABDULLAHI Administration Multivitamins/Minerals 1 tablet 08/31/19 09:00 09/03/19 08:32 Ocuvite PO 1 tablet DAILY ABDULLAHI Administration Oxycodone HCl 5 mg 08/30/19 16:49 09/03/19 13:14 Roxicodone Ir Tablet PO 5 mg Q4H PRN Administra
--- NOTE | 2019-09-03 18:02 | PM.IMCN ---
Assessment and Plan Assessment and plan (1) Acute bilateral deep vein thrombosis (DVT) of femoral veins: Code(s): I82.413 - Acute embolism and thrombosis of femoral vein, bilateral Status: Acute Assessment and Plan: Most likely due to postop complications. Patient has bilateral DVTs. I did talk to my collaborative and she is in agreement to start the patient on subcu Lovenox tonight. We can start Xarelto tomorrow. The patient will have limited physical therapy now due to the DVTs. I will also do a CTA pulmonary to check for any pulmonary emboli. This will have have a delay in her rehab due to limited physical therapy. (2) S/P ORIF (open reduction internal fixation) fracture: Code(s): Z98.890 - Other specified postprocedural states; Z87.81 - Personal history of (healed) traumatic fracture Status: Acute Assessment and Plan: Dr. Mai performed her surgery. Postop care per Dr. Mai. (3) Hypothyroidism: Code(s): E03.9 - Hypothyroidism, unspecified Status: Chronic Assessment and Plan: Continue with levothyroxine. (4) Depression with anxiety: Code(s): F41.8 - Other specified anxiety disorders Status: Chronic Assessment and Plan: Continue to monitor. (5) Hypertension: Code(s): I10 - Essential (primary) hypertension Status: Chronic Assessment and Plan: Continue with Norvasc, Lasix, losartan, and metoprolol. Additional Plan Eczema patient has been on low-dose prednisone. History of B-cell lymphoma patient was diagnosed with the biopsy but was intolerant of the radiation. GERD continue with PPI. HPI Data of Consult Consult date: 09/03/19 Requesting Physician: John Brooks MD Primary Care Provider: Micky Phelps MD Consult Narrative Narrative: Haritha Howard is a 83 year old female Review of Systems Review of Systems: All systems reviewed & are unremarkable except as noted in HPI and below Constitutional: Constitutional: Reports as per HPI and Reports no additional constitutional complaints Eyes: Eyes: Reports as per HPI and Reports no additional eye complaints ENT: Reports system reviewed and no additional complaints, except as documented and Reports Normal hearing present Cardiovascular: Cardiovascular: Reports no additional cardiovascular complaints Respiratory: Respiratory: Reports no additional respiratory complaints and Reports no additional respiratory complaints Gastrointestinal: Gastrointestinal: Reports as per HPI and Reports no additional gastrointestinal complaints Musculoskeletal: Musculoskeletal: Reports no additional musculoskeletal complaints Integumentary/Breasts: Skin/Breast: Reports system reviewed and no additional complaints, except as docu and Reports as per HPI Neurologic: Reports system reviewed and no additional complaints, except as documented, Reports as per HPI and Reports Normal hearing present Psychiatric: Psychiatric: Reports no additional psychiatric complaints and Reports as per HPI Endocrine: Endocrine: Reports no additional endocrine complaints Hematologic/Lymphatic: Hematologic/Lymphatic: Reports no additional hematologic/lymphatic complaints Allergic/Immunologic: Allergic/Immunologic: Reports no additional allergic/immunologic complaints [facility] Past Medical History Medical History (Updated 09/03/19 @ 18:05 by Mala Kaplan NP) B-cell lymphoma Diagnosis agree with IV fluid biopsy. she was intolerate of radiation. 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 Chronic back pain Depression with anxiety Diverticulosis Eczema GERD (gastroesophageal reflux disease) Hypertension Hypothyroidism Osteopenia Surgical History Surgical History (Updated 09/03/19 @ 18:05 by Mala Kaplan NP) Cataract extraction status H/O hemorrhoidectomy H/O kyphoplasty July 2018 Histo
[2019-09-03 20:18] VITALS: PULSE 78
[2019-09-03] MEDS: ENOXAPARIN 80 MG/0.8 ML SYRINGE 74 MG SUB-Q (20:19)
[2019-09-03 22:00] VITALS: BP 133/60; PULSE 80; RESP 18; TEMP 36.6; O2SAT 97
[2019-09-04 06:00] VITALS: BP 141/62; PULSE 68; RESP 16; TEMP 37.4; O2SAT 94
[2019-09-04 08:00] VITALS: PULSE 68; RESP 16; O2SAT 94
[2019-09-04] MEDS: ENOXAPARIN 80 MG/0.8 ML SYRINGE 74 MG SUB-Q ×2 (09:48→20:18)
[2019-09-04] MEDS: OPTI-GEN TAB 1 TABLET PO (09:49)
[2019-09-04] MEDS: PANTOPRAZOLE 40 MG TABLET PO (09:49)
[2019-09-04] MEDS: polyethylene glycoL 3350 17 GM POWD.PACK PO (09:49)
[2019-09-04] MEDS: POTASSIUM CHLORIDE 20 MEQ TABLET.ER 40 MEQ PO (09:50)
[2019-09-04] MEDS: OMEGA 3 POLYUNSAT FATTY ACIDS 1 GM CAP PO (09:51)
[2019-09-04] MEDS: DOCUSATE SODIUM 100 MG CAPSULE PO ×2 (09:51→15:54)
[2019-09-04] MEDS: AMLODIPINE BESYLATE 5 MG TABLET 10 MG PO (09:51)
[2019-09-04] MEDS: FLUTICASONE PROPIONATE 0.05% NA SPR 16 GM BTL (*BKC) 1 SPRAY NASAL (09:51)
[2019-09-04] MEDS: LOSARTAN POTASSIUM 100 MG TABLET PO (09:51)
[2019-09-04 09:52] VITALS: PULSE 68
[2019-09-04] MEDS: TRIFLUOPERAZINE HCL 1 MG TABLET 2 MG PO (09:52)
[2019-09-04] MEDS: METOPROLOL TARTRATE 50 MG TAB PO ×2 (09:52→20:17)
[2019-09-04] MEDS: predniSONE 10 MG TABLET PO (09:52)
[2019-09-04] MEDS: MORPHINE SULFATE 15 MG TABCR 30 MG PO ×2 (09:56→20:17)
--- NOTE | 2019-09-04 10:58 | PCPTNOTE ---
Addendum entered by Poppy Hodges, BUILDING CUSTODIAN 09/04/19 12:55: The PT treatment was unable to be completed this AM. Per RN, patient is on bedrest with no physical therapy until approved by hospitalist. Per review of hospitalist note, will attempt light supine LE physical therapy this PM. Original Note: The PT treatment was unable to be completed today. Per RN, patient is on bedrest with no physical therapy until approved by hospitalist. Will continue per Plan of Care frequency and duration.
--- NOTE | 2019-09-04 12:08 | WPDNEURORHBP ---
Subjective Date/time seen: 09/04/19 12:08 Review of Systems Review of Systems: All systems reviewed & are unremarkable except as noted in HPI and below Functional Status Ambulation Ability Ability to Ambulate 10 Feet: Minimum Assistance X 1 Ambulation Assistive Devices: Walker, Wheeled Transfers Ability Ability to Transfer In/Out of Chair: Minimum Assistance X 1 Exam Const: General: cooperative and no acute distress HENMT: Head: normal to inspection Ears: hearing grossly normal bilaterally General nose exam: Normal external nose present and No nasal discharge present Face and sinus: normal facial exam Mouth: Yes Normal oral and palatal mucosa present Eyes: General: appearance normal, both eyes and all related structures Alignment and Position: alignment normal Periorbital: periorbital findings normal Conjunctivae: conjunctivae normal Sclera: sclerae normal Cornea: corneas normal Pupils: Equal, round and reactive pupils present EOM: EOMs intact bilaterally Neck: Neck: full ROM Resp: Effort & Inspection: normal respiratory effort Auscultation: clear to auscultation bilaterally Cardio: Rate: regular rate Rhythm: regular rhythm GI: Auscultation: normal bowel sounds Neuro: General: patient oriented x3 Cranial nerves: Yes CN's II-XII intact bilaterally Cognition (Neuro): normal cognition Gait exam (Neuro): Unable to assess gait Motor exam (neuro): 5/5 motor strength present throughout (somewhat decreased) Extrem: General: edema (left>right) Psych: Appearance: grossly normal Objective Data Vital Signs Vital Signs: Vital Signs - 24 hr 09/03/19 14:00 09/03/19 20:18 09/03/19 22:00 Temperature 36.4 C 36.6 C Pulse Rate 74 78 80 Respiratory Rate 18 18 Blood Pressure 127/57 L 133/60 Pulse Oximetry 95 97 09/04/19 06:00 09/04/19 08:00 09/04/19 09:52 Temperature 37.4 C Pulse Rate 68 68 68 Respiratory Rate 16 16 Blood Pressure 141/62 H Pulse Oximetry 94 94 Intake/Output Intake/Output: Intake & Output 09/01/19 09/02/19 09/03/19 09/04/19 23:59 23:59 23:59 23:59 Intake Total 972 172 7928 Balance 284 132 2694 Meds/Results Medications: Active Medications Generic Name Dose Route Start Last Admin Trade Name Freq PRN Reason Stop Dose Admin Amlodipine Besylate 10 mg 05/05/20 09:00 09/04/19 09:51 Norvasc PO 10 mg DAILY ABDULLAHI Administration Artificial Tears 1 drop 08/30/19 17:07 Artificial Tears EACH EYE PRN PRN Dry Eye(s) Calcium Carbonate 500 mg 08/31/19 09:00 09/04/19 09:49 Os-Oscar 500 +D Tablet PO 500 mg QAM ABDULLAHI Administration Cyclosporine 1 drop 08/30/19 21:00 09/04/19 09:51 Restasis EACH EYE 1 drop Q12HR ABDULLAHI Administration Docusate Sodium 100 mg 08/30/19 17:00 09/04/19 09:51 Colace Capsule PO 100 mg BID ABDULLAHI Administration Enoxaparin Sodium 74 mg 09/03/19 21:00 09/04/19 09:48 Lovenox SUB-Q 74 mg Q12HR ABDULLAHI Administration Fish Oil 1 gm 08/31/19 09:00 09/04/19 09:51 Lovaza PO 1 gm DAILY ABDULLAHI Administration Fluticasone Propionate 1 spray 08/31/19 09:00 09/04/19 09:51 Flonase 0.05% Nasal [place] NASAL 1 spray DAILY [facility] Administration Furosemide 40 mg 08/30/19 16:49 Lasix Tablet PO DAILY PRN swelling Levothyroxine Sodium 75 mcg 08/31/19 06:30 09/04/19 06:37 Synthroid PO Not Given DAILY@0630 [facility] Losartan Potassium 100 mg 08/31/19 09:00 09/04/19 09:51 Cozaar PO 100 mg DAILY ABDULLAHI Administration Magnesium Hydroxide 30 ml 08/30/19 17:03 Milk Of Magnesia PO DAILY PRN Constipation Metoprolol Tartrate 50 mg 08/30/19 21:00 09/04/19 09:52 Lopressor PO 50 mg Q12HR ABDULLAHI Administration Morphine Sulfate 30 mg 08/30/19 21:00 09/04/19 09:56 Ms Contin PO 30 mg Q12HR ABDULLAHI Administration Multivitamins/Minerals 1 tablet 08/31/19 09:00 09/04/19 09:49 Ocuvite PO 1 tablet DAILY ABDULLAHI Administration Oxycodone HCl
--- NOTE | 2019-09-04 13:29 | PC.NURSE ---
Talked with Lizette Mortensen with hospitalist group and asked if patient can resume therapy. Per Prachi yes patient can resume therapy.
[2019-09-04 14:00] VITALS: BP 138/68; PULSE 72; RESP 18; TEMP 36.5; O2SAT 97
--- NOTE | 2019-09-04 16:38 | P.PNIM_ITS ---
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 Venous doppler revealed acute thrombosis in the lower extremities bilaterally affecting the right common femoral and superficial femoral veins as well as the left profunda femoral vein. Therapeutic lovenox was initiated 09/03/19. CTA chest was negative for PE. * Continue therapeutic lovenox for now * Elevate the lower extremities while at rest to reduce swelling which should improve her pain * She will likely need to transition to a PO regimen at discharge and I will place a care coordination consult for this * Continue PT/OT, encourage mobility with assistance (2) S/P ORIF (open reduction internal fixation) fracture: Code(s): Z98.890 - Other specified postprocedural states; Z87.81 - Personal history of (healed) traumatic fracture Status: Acute Assessment and Plan: She sustained a mechanical fall 08/23/19 and underwent left hemiarthroplasty by Dr. Mai on 08/24/19. She is currently receiving PT/OT at [facility] and progressing well. * Postop care per Dr. Mai * Continue caltrate 600 plus D * Recommend DEXA outpatient * Continue PT/OT (3) Hypothyroidism: Qualifiers: Hypothyroidism type: unspecified Qualified Code(s): E03.9 - Hypothyroidism, unspecified Code(s): E03.9 - Hypothyroidism, unspecified Status: Chronic Assessment and Plan: TSH was 1.290 08/24/19. * Continue levothyroxine (4) Depression with anxiety: Code(s): F41.8 - Other specified anxiety disorders Status: Chronic Assessment and Plan: Stable. * Continue trifluoperazine (5) Hypertension: Qualifiers: Hypertension type: essential hypertension Qualified Code(s): I10 - Essential (primary) hypertension Code(s): I10 - Essential (primary) hypertension Status: Chronic Assessment and Plan: BP were reviewed and are acceptable. * Continue with amlodipine * Continue lasix * Continue losartan * Continue metoprolol * Continue to monitor (6) Anemia: Qualifiers: Anemia type: unspecified type Qualified Code(s): D64.9 - Anemia, unspecified Code(s): D64.9 - Anemia, unspecified Status: Acute Assessment and Plan: Improving. Normocytic. Hb is 10.5 and Hct is 32.1. Hb prior to surgery was 13.9 and Hct 42.2. She is post-op. * Will check iron, vitamin B12, and folate. 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
--- NOTE | 2019-09-04 16:38 | PM.IMPN ---
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 Venous doppler revealed acute thrombosis in the lower extremities bilaterally affecting the right common femoral and superficial femoral veins as well as the left profunda femoral vein. Therapeutic lovenox was initiated 09/03/19. CTA chest was negative for PE. Continue therapeutic lovenox for now Elevate the lower extremities while at rest to reduce swelling which should improve her pain She will likely need to transition to a PO regimen at discharge and I will place a care coordination consult for this Continue PT/OT, encourage mobility with assistance (2) S/P ORIF (open reduction internal fixation) fracture: Code(s): Z98.890 - Other specified postprocedural states; Z87.81 - Personal history of (healed) traumatic fracture Status: Acute Assessment and Plan: She sustained a mechanical fall 08/23/19 and underwent left hemiarthroplasty by Dr. Mai on 08/24/19. She is currently receiving PT/OT at [facility] and progressing well. Postop care per Dr. Mai Continue caltrate 600 plus D Recommend DEXA outpatient Continue PT/OT (3) Hypothyroidism: Qualifiers: Hypothyroidism type: unspecified Qualified Code(s): E03.9 - Hypothyroidism, unspecified Code(s): E03.9 - Hypothyroidism, unspecified Status: Chronic Assessment and Plan: TSH was 1.290 08/24/19. Continue levothyroxine (4) Depression with anxiety: Code(s): F41.8 - Other specified anxiety disorders Status: Chronic Assessment and Plan: Stable. Continue trifluoperazine (5) Hypertension: Qualifiers: Hypertension type: essential hypertension Qualified Code(s): I10 - Essential (primary) hypertension Code(s): I10 - Essential (primary) hypertension Status: Chronic Assessment and Plan: BP were reviewed and are acceptable. Continue with amlodipine Continue lasix Continue losartan Continue metoprolol Continue to monitor (6) Anemia: Qualifiers: Anemia type: unspecified type Qualified Code(s): D64.9 - Anemia, unspecified Code(s): D64.9 - Anemia, unspecified Status: Acute Assessment and Plan: Improving. Normocytic. Hb is 10.5 and Hct is 32.1. Hb prior to surgery was 13.9 and Hct 42.2. She is post-op. Will check iron, vitamin B12, and folate. 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 She decided to forgo further treatment. Additional Plan She also has a hx of marginal zone B-cell lymphoma in the left orbit and completed treatment between 12/03/17-12/30/17 for that from previous records. Time Spent
[2019-09-04 17:26] LABS: Hematocrit 32.1 % (37.0-47.0); Hemoglobin 10.5 g/dL (12.0-15.0)
[2019-09-04 20:17] VITALS: PULSE 72
[2019-09-04 22:00] VITALS: BP 117/56; PULSE 72; RESP 18; TEMP 36.3; O2SAT 97
[2019-09-05 04:36] LABS: Hematocrit 27.1 % (37.0-47.0); Hemoglobin 8.8 g/dL (12.0-15.0); Mean Corpuscular HGB Conc 32.5 g/dl (32-36); Mean Corpuscular Hemoglobin 29.7 pg (26-34); Mean Corpuscular Volume 91.6 fl (80-100); Mean Platelet Volume 8.1 fl (7.4-10.4); Platelet Count Result 314 k/mm3 (150-375); Red Blood Count 2.96 M/mm3 (4.2-5.4); Red Cell Distribution Width 14.1 % (11.5-14.5); White Blood Count 5.7 K/mm3 (4.5-10.0)
[2019-09-05 04:47] LABS: Blood Urea Nitrogen 16 mg/dL (7-17); Calcium 8.4 mg/dL (8.4-10.2); Carbon Dioxide 30 mmol/L (22-30); Chloride 96 mmol/L (98-107); Estimated CRCL calculation 67 ml/min; Estimated Glomerular Filt Rate > 60; Glucose 78 mg/dL (65-105); Magnesium 1.9 mg/dL (1.6-2.3); Potassium 4.3 mmol/L (3.4-5.0); Sodium 128 mmol/L (137-145)
[2019-09-05 04:54] LABS: Transferrin 184 mg/dL (206-381)
[2019-09-05 05:05] LABS: Iron 51 ug/dL (37-170)
[2019-09-05 05:14] LABS: Percent Iron Saturation 21 % (20-50)
[2019-09-05] MEDS: LEVOTHYROXINE SODIUM 75 MCG TABLET PO (05:43)
[2019-09-05 05:54] LABS: Folic Acid 19.6 ng/mL (2.76->20)
[2019-09-05 06:00] VITALS: BP 131/49; PULSE 58; RESP 17; TEMP 36.6; O2SAT 94
[2019-09-05 08:00] VITALS: PULSE 64; RESP 17; O2SAT 94
[2019-09-05] MEDS: FLUTICASONE PROPIONATE 0.05% NA SPR 16 GM BTL (*BKC) 1 SPRAY NASAL (08:29)
[2019-09-05] MEDS: ENOXAPARIN 80 MG/0.8 ML SYRINGE 74 MG SUB-Q ×2 (08:30→20:26)
[2019-09-05] MEDS: LOSARTAN POTASSIUM 100 MG TABLET PO (08:30)
[2019-09-05] MEDS: DOCUSATE SODIUM 100 MG CAPSULE PO ×2 (08:30→17:43)
[2019-09-05] MEDS: OMEGA 3 POLYUNSAT FATTY ACIDS 1 GM CAP PO (08:31)
[2019-09-05] MEDS: POTASSIUM CHLORIDE 20 MEQ TABLET.ER 40 MEQ PO (08:31)
[2019-09-05] MEDS: OPTI-GEN TAB 1 TABLET PO (08:31)
[2019-09-05] MEDS: AMLODIPINE BESYLATE 5 MG TABLET 10 MG PO (08:31)
[2019-09-05 08:32] VITALS: PULSE 64
[2019-09-05] MEDS: PANTOPRAZOLE 40 MG TABLET PO (08:32)
[2019-09-05] MEDS: TRIFLUOPERAZINE HCL 1 MG TABLET 2 MG PO (08:32)
[2019-09-05] MEDS: polyethylene glycoL 3350 17 GM POWD.PACK PO (08:32)
[2019-09-05] MEDS: METOPROLOL TARTRATE 50 MG TAB PO ×2 (08:32→20:26)
[2019-09-05] MEDS: predniSONE 10 MG TABLET PO (08:33)
[2019-09-05] MEDS: MORPHINE SULFATE 15 MG TABCR 30 MG PO ×2 (08:42→20:26)
[2019-09-05 14:00] VITALS: BP 141/73; PULSE 82; RESP 20; TEMP 36.6; O2SAT 98
[2019-09-05 15:17] LABS: Hematocrit 27.9 % (37.0-47.0)
--- NOTE | 2019-09-05 15:21 | P.PNIM_ITS ---
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 Venous doppler US revealed acute thrombosis in the lower extremities bilaterally affecting the right common femoral and superficial femoral veins as well as the left profunda femoral vein. Therapeutic lovenox was initiated 09/03/19. CTA chest was negative for PE. * Continue therapeutic lovenox. I anticipate she will discharge on this as she and her family are in agreement that they prefer lovenox as above in HPI. * Monitor closely for bleeding. * Elevate the lower extremities while at rest to reduce swelling which should improve her pain * Continue PT/OT, encourage mobility with assistance (2) S/P ORIF (open reduction internal fixation) fracture: Code(s): Z98.890 - Other specified postprocedural states; Z87.81 - Personal history of (healed) traumatic fracture Status: Acute Assessment and Plan: She sustained a mechanical fall 08/23/19 and underwent left hemiarthroplasty by Dr. Mai on 08/24/19. She is currently receiving PT/OT at [facility] and progressing well. * Postop care per Dr. Mai * Continue caltrate 600 plus D * Recommend DEXA outpatient * Continue PT/OT (3) Hypothyroidism: Qualifiers: Hypothyroidism type: unspecified Qualified Code(s): E03.9 - Hypothyroidism, unspecified Code(s): E03.9 - Hypothyroidism, unspecified Status: Chronic Assessment and Plan: TSH was 1.290 08/24/19. * Continue levothyroxine (4) Depression with anxiety: Code(s): F41.8 - Other specified anxiety disorders Status: Chronic Assessment and Plan: Stable. * Continue trifluoperazine (5) Hypertension: Qualifiers: Hypertension type: essential hypertension Qualified Code(s): I10 - Essential (primary) hypertension Code(s): I10 - Essential (primary) hypertension Status: Chronic Assessment and Plan: BP were reviewed and are acceptable. * Continue with amlodipine * Continue lasix * Continue losartan * Continue metoprolol * Continue to monitor (6) Anemia: Qualifiers: Anemia type: unspecified type Qualified Code(s): D64.9 - Anemia, unspecified Code(s): D64.9 - Anemia, unspecified Status: Acute Assessment and Plan: Normocytic. Hb was 8.8 and Hct 27.1. It was rechecked this afternoon at 9.0 and 27.9 respectively. * Will check iron, vitamin B12, and folate. 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
--- NOTE | 2019-09-05 15:21 | PM.IMPN ---
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 Venous doppler US revealed acute thrombosis in the lower extremities bilaterally affecting the right common femoral and superficial femoral veins as well as the left profunda femoral vein. Therapeutic lovenox was initiated 09/03/19. CTA chest was negative for PE. Continue therapeutic lovenox. I anticipate she will discharge on this as she and her family are in agreement that they prefer lovenox as above in HPI. Monitor closely for bleeding. Elevate the lower extremities while at rest to reduce swelling which should improve her pain Continue PT/OT, encourage mobility with assistance (2) S/P ORIF (open reduction internal fixation) fracture: Code(s): Z98.890 - Other specified postprocedural states; Z87.81 - Personal history of (healed) traumatic fracture Status: Acute Assessment and Plan: She sustained a mechanical fall 08/23/19 and underwent left hemiarthroplasty by Dr. Mai on 08/24/19. She is currently receiving PT/OT at [facility] and progressing well. Postop care per Dr. Mai Continue caltrate 600 plus D Recommend DEXA outpatient Continue PT/OT (3) Hypothyroidism: Qualifiers: Hypothyroidism type: unspecified Qualified Code(s): E03.9 - Hypothyroidism, unspecified Code(s): E03.9 - Hypothyroidism, unspecified Status: Chronic Assessment and Plan: TSH was 1.290 08/24/19. Continue levothyroxine (4) Depression with anxiety: Code(s): F41.8 - Other specified anxiety disorders Status: Chronic Assessment and Plan: Stable. Continue trifluoperazine (5) Hypertension: Qualifiers: Hypertension type: essential hypertension Qualified Code(s): I10 - Essential (primary) hypertension Code(s): I10 - Essential (primary) hypertension Status: Chronic Assessment and Plan: BP were reviewed and are acceptable. Continue with amlodipine Continue lasix Continue losartan Continue metoprolol Continue to monitor (6) Anemia: Qualifiers: Anemia type: unspecified type Qualified Code(s): D64.9 - Anemia, unspecified Code(s): D64.9 - Anemia, unspecified Status: Acute Assessment and Plan: Normocytic. Hb was 8.8 and Hct 27.1. It was rechecked this afternoon at 9.0 and 27.9 respectively. Will check iron, vitamin B12, and folate. 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 She decided to forgo further treatment. 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
[2019-09-05 20:26] VITALS: PULSE 88
[2019-09-05 22:00] VITALS: BP 130/55; PULSE 73; RESP 16; TEMP 37; O2SAT 98
[2019-09-06 06:00] VITALS: BP 125/55; PULSE 64; RESP 16; TEMP 36.8; O2SAT 97
[2019-09-06] MEDS: LEVOTHYROXINE SODIUM 75 MCG TABLET PO (06:39)
[2019-09-06 08:00] VITALS: PULSE 66; RESP 16
[2019-09-06] MEDS: FLUTICASONE PROPIONATE 0.05% NA SPR 16 GM BTL (*BKC) 1 SPRAY NASAL (08:20)
[2019-09-06] MEDS: ENOXAPARIN 80 MG/0.8 ML SYRINGE 74 MG SUB-Q ×2 (08:21→21:10)
[2019-09-06] MEDS: MORPHINE SULFATE 15 MG TABCR 30 MG PO ×2 (08:22→21:04)
[2019-09-06] MEDS: FUROSEMIDE 40 MG TABLET PO (08:22)
[2019-09-06] MEDS: OPTI-GEN TAB 1 TABLET PO (08:22)
[2019-09-06] MEDS: OMEGA 3 POLYUNSAT FATTY ACIDS 1 GM CAP PO (08:22)
[2019-09-06 08:23] VITALS: PULSE 66
[2019-09-06] MEDS: TRIFLUOPERAZINE HCL 1 MG TABLET 2 MG PO (08:23)
[2019-09-06] MEDS: DOCUSATE SODIUM 100 MG CAPSULE PO ×2 (08:23→17:10)
[2019-09-06] MEDS: PANTOPRAZOLE 40 MG TABLET PO (08:23)
[2019-09-06] MEDS: METOPROLOL TARTRATE 50 MG TAB PO ×2 (08:23→21:09)
[2019-09-06] MEDS: LOSARTAN POTASSIUM 100 MG TABLET PO (08:23)
[2019-09-06] MEDS: polyethylene glycoL 3350 17 GM POWD.PACK PO (08:24)
[2019-09-06] MEDS: POTASSIUM CHLORIDE 20 MEQ TABLET.ER 40 MEQ PO (08:24)
[2019-09-06] MEDS: AMLODIPINE BESYLATE 5 MG TABLET 10 MG PO (08:24)
[2019-09-06] MEDS: predniSONE 10 MG TABLET PO (08:25)
[2019-09-06 14:00] VITALS: BP 109/49; PULSE 76; RESP 20; TEMP 36.6; O2SAT 98
--- NOTE | 2019-09-06 14:58 | PCPTNOTE ---
Haritha Howard was evaluated for a ervin wheeled walker on 09/06/2019 by this physical therapist. The patient's height is 5'1 therefore, a standard walker will not be low enough. The shorter wheeled walker will resolve patient's mobility limitations and will be used for ADL's within the home. The patient can safely use the shorter ervin wheeled walker. ?The ervin wheeled walker will resolve the patient?s mobility deficits, including gait in and out of her home, and transfers. Fani Moya PT
--- NOTE | 2019-09-06 15:03 | P.PNIM_ITS ---
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 Venous doppler US revealed acute thrombosis in the lower extremities bilaterally affecting the right common femoral and superficial femoral veins as well as the left profunda femoral vein. Therapeutic lovenox was initiated 09/03/19. CTA chest was negative for PE. * Continue therapeutic lovenox. The patient, her PCP, and Dr. aBker are all on board to continue lovenox at discharge due to hx of GI bleeding and active cancer. * Monitor closely for bleeding. * Elevate the lower extremities while at rest * Continue PT/OT, encourage mobility with assistance (2) S/P ORIF (open reduction internal fixation) fracture: Code(s): Z98.890 - Other specified postprocedural states; Z87.81 - Personal history of (healed) traumatic fracture Status: Acute Assessment and Plan: She sustained a mechanical fall 08/23/19 and underwent left hemiarthroplasty by Dr. Mai on 08/24/19. She is currently receiving PT/OT at [facility] and progressing well. * Postop care per Dr. Mai * Continue caltrate 600 plus D * Recommend DEXA outpatient * Continue PT/OT (3) Hypothyroidism: Qualifiers: Hypothyroidism type: unspecified Qualified Code(s): E03.9 - Hypothyroidism, unspecified Code(s): E03.9 - Hypothyroidism, unspecified Status: Chronic Assessment and Plan: TSH was 1.290 08/24/19. * Continue levothyroxine (4) Depression with anxiety: Code(s): F41.8 - Other specified anxiety disorders Status: Chronic Assessment and Plan: Stable. * Continue trifluoperazine (5) Hypertension: Qualifiers: Hypertension type: essential hypertension Qualified Code(s): I10 - Essential (primary) hypertension Code(s): I10 - Essential (primary) hypertension Status: Chronic Assessment and Plan: BP were reviewed and are acceptable. * Continue with amlodipine * Continue lasix * Continue losartan * Continue metoprolol * Continue to monitor (6) Anemia: Qualifiers: Anemia type: unspecified type Qualified Code(s): D64.9 - Anemia, unspecified Code(s): D64.9 - Anemia, unspecified Status: Acute Assessment and Plan: Normocytic. Hb is 9.0 and Hct is 27.9 on 09/04. Iron studies revealed iron deficiency anemia. Vitamin B12 and folate are sufficient. 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
--- NOTE | 2019-09-06 15:03 | PM.IMPN ---
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 Venous doppler US revealed acute thrombosis in the lower extremities bilaterally affecting the right common femoral and superficial femoral veins as well as the left profunda femoral vein. Therapeutic lovenox was initiated 09/03/19. CTA chest was negative for PE. Continue therapeutic lovenox. The patient, her PCP, and Dr. Baker are all on board to continue lovenox at discharge due to hx of GI bleeding and active cancer. Monitor closely for bleeding. Elevate the lower extremities while at rest Continue PT/OT, encourage mobility with assistance (2) S/P ORIF (open reduction internal fixation) fracture: Code(s): Z98.890 - Other specified postprocedural states; Z87.81 - Personal history of (healed) traumatic fracture Status: Acute Assessment and Plan: She sustained a mechanical fall 08/23/19 and underwent left hemiarthroplasty by Dr. Mai on 08/24/19. She is currently receiving PT/OT at [facility] and progressing well. Postop care per Dr. Mai Continue caltrate 600 plus D Recommend DEXA outpatient Continue PT/OT (3) Hypothyroidism: Qualifiers: Hypothyroidism type: unspecified Qualified Code(s): E03.9 - Hypothyroidism, unspecified Code(s): E03.9 - Hypothyroidism, unspecified Status: Chronic Assessment and Plan: TSH was 1.290 08/24/19. Continue levothyroxine (4) Depression with anxiety: Code(s): F41.8 - Other specified anxiety disorders Status: Chronic Assessment and Plan: Stable. Continue trifluoperazine (5) Hypertension: Qualifiers: Hypertension type: essential hypertension Qualified Code(s): I10 - Essential (primary) hypertension Code(s): I10 - Essential (primary) hypertension Status: Chronic Assessment and Plan: BP were reviewed and are acceptable. Continue with amlodipine Continue lasix Continue losartan Continue metoprolol Continue to monitor (6) Anemia: Qualifiers: Anemia type: unspecified type Qualified Code(s): D64.9 - Anemia, unspecified Code(s): D64.9 - Anemia, unspecified Status: Acute Assessment and Plan: Normocytic. Hb is 9.0 and Hct is 27.9 on 09/04. Iron studies revealed iron deficiency anemia. Vitamin B12 and folate are sufficient. 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 She decided to forgo further treatment. (10) Hypokalemia: Code(s): E87.6 - Hypokalemia Status: Acute Assessment and Plan: Potassium was low initially and the patient is currently receiving daily potassium supplement
--- NOTE | 2019-09-06 17:41 | WPDNEURORHBP ---
Subjective Date/time seen: 09/06/19 17:41 Acute subcapital fracture of left femoral neck Review of Systems Review of Systems: All systems reviewed & are unremarkable except as noted in HPI and below Functional Status Ambulation Ability Ability to Ambulate 10 Feet: Contact Guard Ambulation Assistive Devices: Walker, Wheeled Transfers Ability Ability to Transfer In/Out of Chair: Minimum Assistance X 1 Exam Const: General: comfortable and no acute distress HENMT: Head: atraumatic Eyes: General: appearance normal, both eyes and all related structures Neck: Neck: full ROM Resp: Effort & Inspection: normal respiratory effort Auscultation: clear to auscultation bilaterally Cardio: Rate: regular rate Rhythm: regular rhythm Neuro: General: patient oriented x3 Psych: Appearance: grossly normal Objective Data Vital Signs Vital Signs: Vital Signs - 24 hr 09/05/19 20:26 09/05/19 22:00 09/06/19 06:00 Temperature 37.0 C 36.8 C Pulse Rate 88 73 64 Respiratory Rate 16 16 Blood Pressure 130/55 L 125/55 L Pulse Oximetry 98 97 09/06/19 08:00 09/06/19 08:23 09/06/19 14:00 Temperature 36.6 C Pulse Rate 66 66 76 Respiratory Rate 16 20 Blood Pressure 109/49 L Pulse Oximetry 98 Intake/Output Intake/Output: Intake & Output 09/03/19 09/04/19 09/05/19 09/06/19 23:59 23:59 23:59 23:59 Intake Total 1200 480 720 600 Balance 1200 480 720 600 Meds/Results Medications: Active Medications Generic Name Dose Route Start Last Admin Trade Name Freq PRN Reason Stop Dose Admin Acetaminophen 650 mg 09/06/19 14:25 Tylenol Tablet PO Q4H PRN Mild Pain (1-3) or Fever Amlodipine Besylate 10 mg 08/31/19 09:00 09/06/19 08:24 Norvasc PO 10 mg DAILY ABDULLAHI Administration Artificial Tears 1 drop 08/30/19 17:07 Artificial Tears EACH EYE PRN PRN Dry Eye(s) Calcium Carbonate 500 mg 08/31/19 09:00 09/06/19 08:24 Os-Oscar 500 +D Tablet PO 500 mg QAM ABDULLAHI Administration Cyclosporine 1 drop 08/30/19 21:00 09/06/19 08:22 Restasis EACH EYE 1 drop Q12HR ABDULLAHI Administration Docusate Sodium 100 mg 08/30/19 17:00 09/06/19 17:10 Colace Capsule PO 100 mg BID ABDULLAHI Administration Enoxaparin Sodium 74 mg 09/03/19 21:00 09/06/19 08:21 Lovenox SUB-Q 74 mg Q12HR ABDULLAHI Administration Fish Oil 1 gm 08/31/19 09:00 09/06/19 08:22 Lovaza PO 1 gm DAILY ABDULLAHI Administration Fluticasone Propionate 1 spray 08/31/19 09:00 09/06/19 08:20 Flonase 0.05% Nasal [place] NASAL 1 spray DAILY ABDULLAHI Administration Furosemide 40 mg 08/30/19 16:49 09/06/19 08:22 Lasix Tablet PO 40 mg DAILY PRN Administration swelling Levothyroxine Sodium 75 mcg 08/31/19 06:30 09/06/19 06:39 Synthroid PO 75 mcg DAILY@0630 [facility] Administration Losartan Potassium 100 mg 08/31/19 09:00 09/06/19 08:23 Cozaar PO 100 mg DAILY ABDULLAHI Administration Magnesium Hydroxide 30 ml 08/30/19 17:03 Milk Of Magnesia PO DAILY PRN Constipation Metoprolol Tartrate 50 mg 08/30/19 21:00 09/06/19 08:23 Lopressor PO 50 mg Q12HR ABDULLAHI Administration Morphine Sulfate 30 mg 08/30/19 21:00 09/06/19 08:22 Ms Contin PO 30 mg Q12HR ABDULLAHI Administration Multivitamins/Minerals 1 tablet 08/31/19 09:00 09/06/19 08:22 Ocuvite PO 1 tablet DAILY ABDULLAHI Administration Oxycodone HCl 5 mg 08/30/19 16:49 09/06/19 17:14 Roxicodone Ir Tablet PO 5 mg Q4H PRN Administration Pain Rated 4-6 Pantoprazole Sodium 40 mg 08/31/19 09:00 09/06/19 08:23 Protonix PO 40 mg QAM ABDULLAHI Administration Polyethylene Glycol 17 gm 08/31/19 09:00 09/06/19 08:24 Miralax PO 17 gm DAILY ABDULLAHI Administration Potassium Chloride 40 meq 09/03/19 13:01 09/06/19 08:24 Kcl Tablet PO 40 meq DAILY@0800 ABDULLAHI Administration Prednisone 10 mg 08/31/19 09:00 05/11/20 08:25 Prednisone PO 10 mg DAILY [facility] Ad
[2019-09-06 21:09] VITALS: PULSE 79
[2019-09-06 22:00] VITALS: BP 133/62; PULSE 79; RESP 18; TEMP 37.6; O2SAT 100
[2019-09-07] VITALS (7 sets, daily range): BP systolic 125–132; BP diastolic 47–58; PULSE 66–78; RESP 18–20; TEMP 36.8–37.3; O2SAT 96–100
[2019-09-07 04:22] LABS: Basophils Percent Auto 0.2 % (0.2-1.2); Eosinophils Absolute Auto 0.1 K/mm3 (0-0.3); Eosinophils Percent Auto 1.6 % (0-4.4); Hematocrit 26.6 % (37.0-47.0); Hemoglobin 8.6 g/dL (12.0-15.0); Immature Granulocyte Absolute 0.04 K/mm3 (0.00-0.031); Immature Granulocyte Percent A 0.8 % (0-0.5); Lymphocytes Percent Auto 24.5 % (18.3-44.2); Mean Corpuscular HGB Conc 32.3 g/dl (32-36); Mean Corpuscular Hemoglobin 29.8 pg (26-34); Mean Platelet Volume 8.2 fl (7.4-10.4); Monocytes Absolute Auto 0.6 K/mm3 (0.1-0.6); Monocytes Percent Auto 12.3 % (2.6-8.5); Neutrophils Percent Auto 60.6 % (45.5-73.1); Nucleated Red Blood Cells Perc 0.6 % (0.0-0.2); Platelet Count Result 317 k/mm3 (150-375); Red Blood Count 2.89 M/mm3 (4.2-5.4); Red Cell Distribution Width 14.3 % (11.5-14.5); White Blood Count 4.9 K/mm3 (4.5-10.0)
[2019-09-07 04:38] LABS: Blood Urea Nitrogen 13 mg/dL (7-17); Calcium 8.6 mg/dL (8.4-10.2); Carbon Dioxide 30 mmol/L (22-30); Chloride 96 mmol/L (98-107); Estimated CRCL calculation 82 ml/min; Estimated Glomerular Filt Rate > 60; Glucose 82 mg/dL (65-105); Sodium 127 mmol/L (137-145)
[2019-09-07] MEDS: LEVOTHYROXINE SODIUM 75 MCG TABLET PO (06:28)
[2019-09-07] MEDS: POTASSIUM CHLORIDE 20 MEQ TABLET.ER 40 MEQ PO (08:22)
[2019-09-07] MEDS: OPTI-GEN TAB 1 TABLET PO (08:22)
[2019-09-07] MEDS: AMLODIPINE BESYLATE 5 MG TABLET 10 MG PO (08:23)
[2019-09-07] MEDS: FLUTICASONE PROPIONATE 0.05% NA SPR 16 GM BTL (*BKC) 1 SPRAY NASAL (08:23)
[2019-09-07] MEDS: TRIFLUOPERAZINE HCL 1 MG TABLET 2 MG PO (08:23)
[2019-09-07] MEDS: METOPROLOL TARTRATE 50 MG TAB PO ×2 (08:23→20:14)
[2019-09-07] MEDS: LOSARTAN POTASSIUM 100 MG TABLET PO (08:23)
[2019-09-07] MEDS: ENOXAPARIN 80 MG/0.8 ML SYRINGE 74 MG SUB-Q ×2 (08:24→20:14)
[2019-09-07] MEDS: DOCUSATE SODIUM 100 MG CAPSULE PO ×2 (08:24→17:25)
[2019-09-07] MEDS: OMEGA 3 POLYUNSAT FATTY ACIDS 1 GM CAP PO (08:24)
[2019-09-07] MEDS: polyethylene glycoL 3350 17 GM POWD.PACK PO (08:25)
[2019-09-07] MEDS: PANTOPRAZOLE 40 MG TABLET PO (08:25)
[2019-09-07] MEDS: predniSONE 10 MG TABLET PO (08:25)
[2019-09-07] MEDS: MORPHINE SULFATE 15 MG TABCR 30 MG PO ×2 (08:28→20:16)
--- NOTE | 2019-09-07 16:13 | WPDNEURORHBP ---
Subjective Date/time seen: 09/07/19 16:13 Interval history: this 83-year-old woman is here after having had surgery for the left femoral neck fracture. She developed DVT and spite of being on Arixtra and now is on Lovenox doing fairly well and happy with the care she denies any headache nausea vomiting chest pain shortness of breath fever chills or sore throat Review of Systems Review of Systems: All systems reviewed & are unremarkable except as noted in HPI and below Functional Status Ambulation Ability Ability to Ambulate 10 Feet: Contact Guard Ambulation Assistive Devices: Walker, Wheeled Transfers Ability Ability to Transfer In/Out of Chair: Minimum Assistance X 1 Exam Const: General: comfortable and no acute distress HENMT: General nose exam: Normal nares present Mouth: Yes moist mucous membranes Eyes: General: appearance normal, both eyes and all related structures Neck: Neck: supple and no JVD Resp: Effort & Inspection: normal respiratory effort Auscultation: clear to auscultation bilaterally Cardio: Rate: regular rate Rhythm: regular rhythm GI: GI Palp: Yes Soft to palpation Auscultation: normal bowel sounds Skin: General skin exam: normal color and no rashes or lesions noted Neuro: Other: she is awake alert well oriented time place person has normal speech and language function overall neurological examination is fairly decent she needs assistance in the activities of daily living the swelling of the lower extremities stable Extrem: Other: the incision is clean and healthy Psych: Mental Status: mental status grossly normal Objective Data Vital Signs Vital Signs: Vital Signs - 24 hr 09/06/19 21:09 09/06/19 22:00 09/07/19 06:00 Temperature 37.6 C 36.8 C Pulse Rate 79 79 66 Respiratory Rate 18 18 Blood Pressure 133/62 127/58 L Pulse Oximetry 100 100 09/07/19 08:00 09/07/19 08:23 09/07/19 14:00 Temperature 37.1 C Pulse Rate 66 66 74 Respiratory Rate 18 20 Blood Pressure 132/47 L Pulse Oximetry 100 98 Intake/Output Intake/Output: Intake & Output 09/04/19 09/05/19 09/06/19 09/07/19 23:59 23:59 23:59 23:59 Intake Total 480 720 840 720 Balance 480 720 840 720 Meds/Results Medications: Active Medications Generic Name Dose Route Start Last Admin Trade Name Freq PRN Reason Stop Dose Admin Acetaminophen 650 mg 09/06/19 14:25 Tylenol Tablet PO Q4H PRN Mild Pain (1-3) or Fever Amlodipine Besylate 10 mg 08/31/19 09:00 09/07/19 08:23 Norvasc PO 10 mg DAILY ABDULLAHI Administration Artificial Tears 1 drop 08/30/19 17:07 Artificial Tears EACH EYE PRN PRN Dry Eye(s) Calcium Carbonate 500 mg 08/31/19 09:00 09/07/19 08:25 Os-Oscar 500 +D Tablet PO 500 mg QAM ABDULLAHI Administration Cyclosporine 1 drop 08/30/19 21:00 09/07/19 08:24 Restasis EACH EYE 1 drop Q12HR ABDULLAHI Administration Docusate Sodium 100 mg 08/30/19 17:00 09/07/19 08:24 Colace Capsule PO 100 mg BID ABDULLAHI Administration Enoxaparin Sodium 74 mg 09/03/19 21:00 09/07/19 08:24 Lovenox SUB-Q 74 mg Q12HR ABDULLAHI Administration Fish Oil 1 gm 08/31/19 09:00 09/07/19 08:24 Lovaza PO 1 gm DAILY ABDULLAHI Administration Fluticasone Propionate 1 spray 08/31/19 09:00 09/07/19 08:23 Flonase 0.05% Nasal [place] NASAL 1 spray DAILY ABDULLAHI Administration Furosemide 40 mg 08/30/19 16:49 09/06/19 08:22 Lasix Tablet PO 40 mg DAILY PRN Administration swelling Levothyroxine Sodium 75 mcg 08/31/19 06:30 09/07/19 06:28 Synthroid PO 75 mcg DAILY@0630 ABDULLAHI Administration Losartan Potassium 100 mg 08/31/19 09:00 09/07/19 08:23 Cozaar PO 100 mg DAILY ABDULLAHI Administration Magnesium Hydroxide 30 ml 08/30/19 17:03 Milk Of Magnesia PO DAILY PRN Constipation Metoprolol Tartrate 50 mg 08/30/19 21:00 09/07/19 08:23 Lopressor PO 50 mg Q12HR ABDULLAHI Administration Morphine Sulfate 30 mg
--- NOTE | 2019-09-07 17:11 | PM.IMPN ---
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 Venous doppler US revealed acute thrombosis in the lower extremities bilaterally affecting the right common femoral and superficial femoral veins as well as the left profunda femoral vein. Therapeutic lovenox was initiated 09/03/19. CTA chest was negative for PE. Continue therapeutic lovenox. The patient and Dr. Baker are all on board to continue lovenox at discharge due to hx of GI bleeding and active cancer. Patient's daughter is a nurse and plans to administer injections. Monitor closely for bleeding. Elevate the lower extremities while at rest Continue PT/OT, encourage mobility with assistance (2) S/P ORIF (open reduction internal fixation) fracture: Code(s): Z98.890 - Other specified postprocedural states; Z87.81 - Personal history of (healed) traumatic fracture Status: Acute Assessment and Plan: She sustained a mechanical fall 08/23/19 and underwent left hemiarthroplasty by Dr. Mai on 08/24/19. She is currently receiving PT/OT at [facility] and progressing well. Postop care per Dr. Mai Continue caltrate 600 plus D Recommend DEXA outpatient Continue PT/OT (3) Hypothyroidism: Qualifiers: Hypothyroidism type: unspecified Qualified Code(s): E03.9 - Hypothyroidism, unspecified Code(s): E03.9 - Hypothyroidism, unspecified Status: Chronic Assessment and Plan: TSH was 1.290 08/24/19. Continue levothyroxine (4) Depression with anxiety: Code(s): F41.8 - Other specified anxiety disorders Status: Chronic Assessment and Plan: Stable. Continue trifluoperazine (5) Hypertension: Qualifiers: Hypertension type: essential hypertension Qualified Code(s): I10 - Essential (primary) hypertension Code(s): I10 - Essential (primary) hypertension Status: Chronic Assessment and Plan: BP were reviewed and are at target. BP evaluated today and stable at 120 7/58.. Continue with amlodipine Continue lasix Continue losartan Continue metoprolol Continue to monitor (6) Anemia: Qualifiers: Anemia type: unspecified type Qualified Code(s): D64.9 - Anemia, unspecified Code(s): D64.9 - Anemia, unspecified Status: Acute Assessment and Plan: Normocytic. Hb is 9.0 and Hct is 27.9 on 09/04. Iron studies revealed iron deficiency anemia. Vitamin B12 and folate are sufficient. 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 She decided to forgo further treatment. Additionally, she has a history of lymphoma of left orbit for which she underwent radiation thera
[2019-09-08] MEDS: LEVOTHYROXINE SODIUM 75 MCG TABLET PO (05:57)
[2019-09-08 06:00] VITALS: BP 121/61; PULSE 68; RESP 18; TEMP 36.9; O2SAT 95
[2019-09-08 08:27] VITALS: PULSE 68
[2019-09-08] MEDS: OMEGA 3 POLYUNSAT FATTY ACIDS 1 GM CAP PO (08:27)
[2019-09-08] MEDS: ENOXAPARIN 80 MG/0.8 ML SYRINGE 74 MG SUB-Q ×2 (08:27→21:16)
[2019-09-08] MEDS: METOPROLOL TARTRATE 50 MG TAB PO ×2 (08:27→21:18)
[2019-09-08] MEDS: DOCUSATE SODIUM 100 MG CAPSULE PO ×2 (08:27→16:52)
[2019-09-08] MEDS: FLUTICASONE PROPIONATE 0.05% NA SPR 16 GM BTL (*BKC) 1 SPRAY NASAL (08:27)
[2019-09-08] MEDS: polyethylene glycoL 3350 17 GM POWD.PACK PO (08:27)
[2019-09-08] MEDS: TRIFLUOPERAZINE HCL 1 MG TABLET 2 MG PO (08:27)
[2019-09-08] MEDS: MORPHINE SULFATE 15 MG TABCR 30 MG PO ×2 (08:28→21:20)
[2019-09-08] MEDS: PANTOPRAZOLE 40 MG TABLET PO (08:28)
[2019-09-08] MEDS: AMLODIPINE BESYLATE 5 MG TABLET 10 MG PO (08:28)
[2019-09-08] MEDS: POTASSIUM CHLORIDE 20 MEQ TABLET.ER 40 MEQ PO (08:28)
[2019-09-08] MEDS: OPTI-GEN TAB 1 TABLET PO (08:28)
[2019-09-08] MEDS: LOSARTAN POTASSIUM 100 MG TABLET PO (08:28)
[2019-09-08] MEDS: predniSONE 10 MG TABLET PO (08:28)
[2019-09-08] MEDS: ACETAMINOPHEN 325 MG TABLET 650 MG PO (13:33)
--- NOTE | 2019-09-08 13:49 | PM.IMPN ---
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 Venous doppler US revealed acute thrombosis in the lower extremities bilaterally affecting the right common femoral and superficial femoral veins as well as the left profunda femoral vein. Therapeutic lovenox was initiated 09/03/19. CTA chest was negative for PE. Continue therapeutic lovenox. The patient and Dr. Baker are all on board to continue lovenox at discharge due to hx of GI bleeding and active cancer. Patient's daughter is a nurse and plans to administer injections. Monitor closely for bleeding. Elevate the lower extremities while at rest Continue PT/OT, encourage mobility with assistance Avoid NSAIDs (2) S/P ORIF (open reduction internal fixation) fracture: Code(s): Z98.890 - Other specified postprocedural states; Z87.81 - Personal history of (healed) traumatic fracture Status: Acute Assessment and Plan: She sustained a mechanical fall 08/23/19 and underwent left hemiarthroplasty by Dr. Mai on 08/24/19. She is currently receiving PT/OT at [facility] and progressing well. Postop care per Dr. Mai Continue caltrate 600 plus D Recommend DEXA outpatient Continue PT/OT (3) Hypothyroidism: Qualifiers: Hypothyroidism type: unspecified Qualified Code(s): E03.9 - Hypothyroidism, unspecified Code(s): E03.9 - Hypothyroidism, unspecified Status: Chronic Assessment and Plan: TSH was 1.290 08/24/19. Continue levothyroxine (4) Hypertension: Qualifiers: Hypertension type: essential hypertension Qualified Code(s): I10 - Essential (primary) hypertension Code(s): I10 - Essential (primary) hypertension Status: Chronic Assessment and Plan: BP were reviewed and are at target. BP evaluated today and stable at 121/61. Continue with amlodipine Continue lasix Continue losartan Continue metoprolol Continue to monitor (5) Left axillary pain: Code(s): M79.622 - Pain in left upper arm Status: Acute Assessment and Plan: Patient complains of left axillary discomfort. She has a large ecchymosis overlying the left axilla and left breast. She reports she had previously been wearing her gait belt positioned under her arms and had been lifted from that position, causing pain. SHe has full ROM. Bruising is secondary to pressure as patient is on Lovenox. There is no evidence of hematoma. Hgb is stable. Continue acetaminophen prn pain Will order lidocaine patch she may apply to area (6) Anemia: Qualifiers: Anemia type: unspecified type Qualified Code(s): D64.9 - Anemia, unspecified Code(s): D64.9 - Anemia, unspecified Status: Acute Assessment and Plan: Normocytic. Hb is 8.6 and Hct is 26.6 on 09/04. Iron studies revealed iron deficiency anemia. Vitamin B12 and folate are sufficient. Transfuse PRN Hb <7 Will continue to monitor with weekly CBC (7) Hypokalemia: Code(s): E87.6 - Hypokalemia Status: Acute Assessment and Plan: Potassium was low initially and the patient is currently receiving daily potassium supplementation. Stable at 4.0 on 09/06 Continue to monitor. Will repeat potassium on 09/09/2019 (8) Hyponatremia: Code(s): E87.1 - Hypo-osmolality and hyponatremia Status: Acute Assessment and Plan: The patient has chronic hyponatremia. Sodium at presentation was 133. Sodium was 127 on 09/06. She is asymptomatic without any neurologic deficits. She is on trifluoperazine which can cause this. Will continue to monitor Repeat sodium level on 09/09/2019 (9)
--- NOTE | 2019-09-08 13:54 | WPDNEURORHBP ---
Subjective Date/time seen: 09/08/19 13:54 Interval history: this 83-year-old woman is here on the rehab after having had surgery for the subcapital fracture of the left hip she also has a DVT for which she is getting the full dose anticoagulation with Lovenox she feels comfortable taking the shots at home because her daughter is a nurse and is seems like both of them the prefer the Lovenox or other any other oral medication at least at this time She denies any had a headache nausea vomiting chest pain shortness of breath fever chills or sore throat Review of Systems Review of Systems: All systems reviewed & are unremarkable except as noted in HPI and below Functional Status Ambulation Ability Ability to Ambulate 10 Feet: Contact Guard Ambulation Assistive Devices: Walker, Wheeled Transfers Ability Ability to Transfer In/Out of Chair: Minimum Assistance X 1 Exam Const: General: comfortable and no acute distress HENMT: General nose exam: Normal nares present Mouth: Yes moist mucous membranes Eyes: General: appearance normal, both eyes and all related structures Neck: Neck: supple and no JVD Resp: Effort & Inspection: normal respiratory effort Auscultation: clear to auscultation bilaterally Cardio: Rate: regular rate Rhythm: regular rhythm GI: GI Palp: Yes Soft to palpation Auscultation: normal bowel sounds Skin: General skin exam: normal color and no rashes or lesions noted Neuro: Other: patient is awake alert well oriented time place and person has normal speech language function and moving in the rehab quite well Extrem: Other: the swelling of the lower extremities is stable she still does have aches and pains in the legs Psych: Mental Status: mental status grossly normal Objective Data Vital Signs Vital Signs: Vital Signs - 24 hr 09/07/19 14:00 09/07/19 19:22 09/07/19 20:14 Temperature 37.1 C Pulse Rate 74 74 74 Respiratory Rate 20 20 Blood Pressure 132/47 L Pulse Oximetry 98 98 09/07/19 22:00 09/08/19 06:00 09/08/19 08:27 Temperature 37.3 C 36.9 C Pulse Rate 78 68 68 Respiratory Rate 18 18 Blood Pressure 125/57 L 121/61 Pulse Oximetry 96 95 Intake/Output Intake/Output: Intake & Output 09/05/19 09/06/19 09/07/19 09/08/19 23:59 23:59 23:59 23:59 Intake Total 720 840 960 480 Balance 720 840 960 480 Meds/Results Medications: Active Medications Generic Name Dose Route Start Last Admin Trade Name Freq PRN Reason Stop Dose Admin Acetaminophen 650 mg 09/06/19 14:25 09/08/19 13:33 Tylenol Tablet PO 650 mg Q4H PRN Administration Mild Pain (1-3) or Fever Amlodipine Besylate 10 mg 08/31/19 09:00 09/08/19 08:28 Norvasc PO 10 mg DAILY ABDULLAHI Administration Artificial Tears 1 drop 08/30/19 17:07 Artificial Tears EACH EYE PRN PRN Dry Eye(s) Calcium Carbonate 500 mg 08/31/19 09:00 09/08/19 08:28 Os-Oscar 500 +D Tablet PO 500 mg QAM ABDULLAHI Administration Cyclosporine 1 drop 08/30/19 21:00 09/08/19 08:28 Restasis EACH EYE 1 drop Q12HR ABDULLAHI Administration Docusate Sodium 100 mg 08/30/19 17:00 09/08/19 08:27 Colace Capsule PO 100 mg BID ABDULLAHI Administration Enoxaparin Sodium 74 mg 09/03/19 21:00 09/08/19 08:27 Lovenox SUB-Q 74 mg Q12HR ABDULLAHI Administration Fish Oil 1 gm 08/31/19 09:00 09/08/19 08:27 Lovaza PO 1 gm DAILY ABDULLAHI Administration Fluticasone Propionate 1 spray 08/31/19 09:00 09/08/19 08:27 Flonase 0.05% Nasal [place] NASAL 1 spray DAILY ABDULLAHI Administration Furosemide 40 mg 08/30/19 16:49 09/06/19 08:22 Lasix Tablet PO 40 mg DAILY PRN Administration swelling Levothyroxine Sodium 75 mcg 08/31/19 06:30 09/08/19 05:57 Synthroid PO 75 mcg DAILY@0630 ABDULLAHI Administration Losartan Potassium 100 mg 08/31/19 09:00 09/08/19 08:28 Cozaar PO 100 mg DAILY ABDULLAHI Administration Magnesium Hydroxide 30 ml 08/30/19 17:03 Milk Of Magnesia PO
[2019-09-08 14:00] VITALS: BP 106/76; PULSE 78; RESP 20; TEMP 36.9; O2SAT 100
[2019-09-08 20:00] VITALS: PULSE 76; RESP 18; O2SAT 100
[2019-09-08 21:18] VITALS: PULSE 76
[2019-09-08 22:00] VITALS: BP 102/60; PULSE 76; RESP 18; TEMP 36.7; O2SAT 100
[2019-09-09] VITALS (7 sets, daily range): BP systolic 110–113; BP diastolic 46–60; PULSE 71–73; RESP 18–20; TEMP 36.7–37.2; O2SAT 95–100
[2019-09-09] MEDS: LEVOTHYROXINE SODIUM 75 MCG TABLET PO (05:30)
[2019-09-09 05:45] LABS: Blood Urea Nitrogen 14 mg/dL (7-17); Calcium 8.3 mg/dL (8.4-10.2); Carbon Dioxide 28 mmol/L (22-30); Chloride 97 mmol/L (98-107); Estimated CRCL calculation 82 ml/min; Estimated Glomerular Filt Rate > 60; Glucose 82 mg/dL (65-105); Potassium 4.2 mmol/L (3.4-5.0); Sodium 127 mmol/L (137-145)
[2019-09-09] MEDS: FLUTICASONE PROPIONATE 0.05% NA SPR 16 GM BTL (*BKC) 1 SPRAY NASAL (08:33)
[2019-09-09] MEDS: AMLODIPINE BESYLATE 5 MG TABLET 10 MG PO (08:33)
[2019-09-09] MEDS: LIDOCAINE 5% PATCH 1 PATCH TRANSDERM (08:33)
[2019-09-09] MEDS: ENOXAPARIN 80 MG/0.8 ML SYRINGE 74 MG SUB-Q ×2 (08:33→20:51)
[2019-09-09] MEDS: LOSARTAN POTASSIUM 100 MG TABLET PO (08:34)
[2019-09-09] MEDS: PANTOPRAZOLE 40 MG TABLET PO (08:34)
[2019-09-09] MEDS: METOPROLOL TARTRATE 50 MG TAB PO ×2 (08:34→20:55)
[2019-09-09] MEDS: OPTI-GEN TAB 1 TABLET PO (08:34)
[2019-09-09] MEDS: POTASSIUM CHLORIDE 20 MEQ TABLET.ER 40 MEQ PO (08:34)
[2019-09-09] MEDS: OMEGA 3 POLYUNSAT FATTY ACIDS 1 GM CAP PO (08:34)
[2019-09-09] MEDS: TRIFLUOPERAZINE HCL 1 MG TABLET 2 MG PO (08:35)
[2019-09-09] MEDS: MORPHINE SULFATE 15 MG TABCR 30 MG PO ×2 (08:35→20:56)
[2019-09-09] MEDS: polyethylene glycoL 3350 17 GM POWD.PACK PO (08:35)
[2019-09-09] MEDS: DOCUSATE SODIUM 100 MG CAPSULE PO ×2 (08:35→16:48)
[2019-09-09] MEDS: predniSONE 10 MG TABLET PO (08:35)
--- NOTE | 2019-09-09 11:22 | PM.IMPN ---
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 Venous doppler US revealed acute thrombosis in the lower extremities bilaterally affecting the right common femoral and superficial femoral veins as well as the left profunda femoral vein. Therapeutic lovenox was initiated 09/03/19. CTA chest was negative for PE. Continue therapeutic lovenox. The patient and Dr. Baker are all on board to continue lovenox at discharge due to hx of GI bleeding and active cancer. Patient's daughter is a nurse and plans to administer injections. Monitor closely for bleeding. Elevate the lower extremities while at rest Continue PT/OT, encourage mobility with assistance Avoid NSAIDs (2) S/P ORIF (open reduction internal fixation) fracture: Code(s): Z98.890 - Other specified postprocedural states; Z87.81 - Personal history of (healed) traumatic fracture Status: Acute Assessment and Plan: She sustained a mechanical fall 08/23/19 and underwent left hemiarthroplasty by Dr. Mai on 08/24/19. She is currently receiving PT/OT at [facility] and progressing well. Postop care per Dr. Mai Continue caltrate 600 plus D Recommend DEXA outpatient Continue PT/OT (3) Left axillary pain: Code(s): M79.622 - Pain in left upper arm Status: Acute Assessment and Plan: Patient complains of left axillary discomfort. She has a large ecchymosis overlying the left axilla and left breast. She reports she had previously been wearing her gait belt positioned under her arms and had been lifted from that position, causing pain. She has full ROM. Extensive bruising is likely related to tension from gait belt. Patient is on Lovenox which has exacerbated bruising. Today, she reports improvement of overall discomfort and now localizes her discomfort to the anterior chest wall just above left breast. There is a firm tender nodule at that location. Hgb is stable. Continue acetaminophen prn pain Continue lidocaine patch Will order ultrasound of left breast and axilla to evaluate for hematoma Will repeat H&H tomorrow (4) Hypothyroidism: Qualifiers: Hypothyroidism type: unspecified Qualified Code(s): E03.9 - Hypothyroidism, unspecified Code(s): E03.9 - Hypothyroidism, unspecified Status: Chronic Assessment and Plan: TSH was 1.290 08/24/19. Continue levothyroxine (5) Hypertension: Qualifiers: Hypertension type: essential hypertension Qualified Code(s): I10 - Essential (primary) hypertension Code(s): I10 - Essential (primary) hypertension Status: Chronic Assessment and Plan: BP were reviewed and are at target. BP evaluated today and stable at 110/54. Continue with amlodipine Continue lasix Continue losartan Continue metoprolol (6) Anemia: Qualifiers: Anemia type: unspecified type Qualified Code(s): D64.9 - Anemia, unspecified Code(s): D64.9 - Anemia, unspecified Status: Acute Assessment and Plan: Normocytic. Hb is 8.6 and Hct is 26.6 on 09/04. Iron studies revealed iron deficiency anemia. Vitamin B12 and folate are sufficient. Transfuse PRN Hb <7 Continue to monitor with weekly CBC (7) Hypokalemia: Code(s): E87.6 - Hypokalemia Status: Acute Assessment and Plan: Potassium was low initially and the patient is currently receiving daily potassium supplementation. Stable at 4.2 on 09/08 Continue to monitor. Will repeat potassium on 09/11 (8) Hyponatremia: Code(s): E87.1 - Hypo-osmolality and hyponatremia Status: Acute Assessment and Plan: The patien
[2019-09-09] MEDS: ACETAMINOPHEN 325 MG TABLET 650 MG PO ×2 (12:53→17:12)
--- NOTE | 2019-09-09 18:38 | PC.NURSE ---
updated Dr Jessica regarding breast ultrasound results. Dr Hernandez updated as well. Requested a general surgery consult. Dr Saavedra called regarding results. He stated he will look at her chart and either he will see patient tomorrow or he will let whomever was seeing her previously know so they can see her. Dr Hernandez updated that surgeon was called . will continue to monitor.
[2019-09-10] VITALS (9 sets, daily range): BP systolic 112–135; BP diastolic 48–80; PULSE 65–84; RESP 18; TEMP 36.9–37.5; O2SAT 92–96
[2019-09-10] MEDS: LEVOTHYROXINE SODIUM 75 MCG TABLET PO (06:27)
[2019-09-10] MEDS: LIDOCAINE 5% PATCH 1 PATCH TRANSDERM ×2 (08:16→08:17)
[2019-09-10] MEDS: OMEGA 3 POLYUNSAT FATTY ACIDS 1 GM CAP PO (08:17)
[2019-09-10] MEDS: AMLODIPINE BESYLATE 5 MG TABLET 10 MG PO (08:17)
[2019-09-10] MEDS: ENOXAPARIN 80 MG/0.8 ML SYRINGE 74 MG SUB-Q ×2 (08:17→20:51)
[2019-09-10] MEDS: FLUTICASONE PROPIONATE 0.05% NA SPR 16 GM BTL (*BKC) 1 SPRAY NASAL (08:17)
[2019-09-10] MEDS: POTASSIUM CHLORIDE 20 MEQ TABLET.ER 40 MEQ PO (08:17)
[2019-09-10] MEDS: OPTI-GEN TAB 1 TABLET PO (08:17)
[2019-09-10] MEDS: polyethylene glycoL 3350 17 GM POWD.PACK PO (08:18)
[2019-09-10] MEDS: TRIFLUOPERAZINE HCL 1 MG TABLET 2 MG PO (08:18)
[2019-09-10] MEDS: LOSARTAN POTASSIUM 100 MG TABLET PO (08:18)
[2019-09-10] MEDS: DOCUSATE SODIUM 100 MG CAPSULE PO ×2 (08:18→17:11)
[2019-09-10] MEDS: MORPHINE SULFATE 15 MG TABCR 30 MG PO ×2 (08:18→20:50)
[2019-09-10] MEDS: PANTOPRAZOLE 40 MG TABLET PO (08:18)
[2019-09-10] MEDS: METOPROLOL TARTRATE 50 MG TAB PO ×2 (08:18→20:53)
[2019-09-10] MEDS: predniSONE 10 MG TABLET PO (08:18)
[2019-09-10] MEDS: ACETAMINOPHEN 325 MG TABLET 650 MG PO (13:36)
--- NOTE | 2019-09-10 14:13 | PM.CNGS ---
Assessment and Plan Assessment and plan (1) Hematoma of left breast: Onset Date: ~09/03/19 Code(s): N64.89 - Other specified disorders of breast Status: Acute Assessment and Plan: After receiving the consultation I carefully reviewed her imaging. Today in radiology with Dr. Chapman I reviewed her CTA of the chest which showed no abnormalities of the left chest wall when that was done approximately 01/15. Subsequently by ultrasound in the 2 o'clock position of the left breast and more laterally on the chest wall there is now a complex cystic/solid mass which is consistent with possible hematoma. In the interim the patient was found to have DVTs and started on full-dose Lovenox, so certainly is at risk for development of mildly traumatic hematoma with her need for help and use of a gait belt during her therapy. We will use heat or cold on this and Tylenol for discomfort. At this time it does not seem to be expanding. We just need to be careful and that will all probably resolve with time. At this time I would not recommend stopping anticoagulation in favor of a inferior vena cava filter since there are also risks that were be entertained to place the filter. She otherwise seems to be doing well with Lovenox anticoagulation and will just need to be cautious with physical activities and pressure on certain areas of her body during the time she is anti- coagulated. If she develops other forms of bleeding such as GI bleeding we may need to revisit the question of stopping anticoagulation avd considering a vena cava filter. Hopefully she will be able to be off anticoagulation in 6 months. (2) Left axillary pain: Onset Date: ~09/03/19 Code(s): M79.622 - Pain in left upper arm Status: Acute Assessment and Plan: This may be related to mild trauma and anticoagulation. See plan above under hematoma of the left breast above. These findings were discussed with both Megan from the hospital less group and Dr. Lee from the rehab physicians point of view. I will not routinely see the patient please call if you need further help from us. History of Present Illness Consult details Consult date: 09/10/19 Reason for consult: other ( Mass along the lateral left breast / chest wall) Requesting physician: Roosevelt Jessica MD Narrative: Patient complains of left axillary discomfort. she states this occurred after she or her gait belt high underneath her arms and also after being helped to moved by some of the staff in rehab facility. She had not noticed a lump along the chest wall previous to that. Of note approximately 1 and half weeks ago she was noted to have a new DVT and was started on full-dose Lovenox in the interim. She has a large ecchymosis overlying the left axilla and left breast. She reports she had previously been wearing her gait belt positioned under her arms and had been lifted from that position, causing pain. She has full ROM. Extensive bruising is likely related to tension from gait belt. Patient is on Lovenox which has exacerbated bruising. Today, she reports improvement of overall discomfort and now localizes her discomfort to the anterior chest wall just above left breast. There is a firm tender nodule at that location. Hgb is stable. Review of Systems Constitutional: Constitutional: Reports no additional constitutional complaints, Reports fatigue and Denies malaise Eyes: Eyes: Denies change in vision and Denies loss of vision ENT: Reports Normal hearing present, Denies change in voice, Denies dizziness, Denies hoarseness and Denies sore throat Cardiovascular: Cardiovascular: Denies chest pain, Denies leg edema and Denies dyspnea Respiratory: Respiratory: Denies cough, Denies dyspnea and Denies wheezing Gastrointestinal: Gastrointestinal: Denies hematochezia, Denies change in bowel habits and Denies heartburn Genitourinary: Genitourinary: Denies urinary frequency and De
--- NOTE | 2019-09-10 14:21 | WPDNEURORHBP ---
Subjective Date/time seen: 09/10/19 14:21 Interval history: this 83-year-old woman is here recuperating after having had surgery for subcapital fracture of the left hip. She is on therapeutic dosages of Lovenox for DVT and has developed hematoma on the left side of the breast for which the surgeon has seen her and he wants us to continue the present management and watch the hematoma at this point he also feels that we could continue the a Lovenox for right now with the option to do IVC filter if need be the patient denies any headache nausea vomiting chest pain shortness of breath fever chills or sore throat Review of Systems Review of Systems: All systems reviewed & are unremarkable except as noted in HPI and below Functional Status Ambulation Ability Ability to Ambulate 10 Feet: Standby Assistance Ability to Ambulate 50 Feet With 2 Turns: Standby Assistance Ambulation Assistive Devices: Walker, Wheeled Transfers Ability Ability to Transfer In/Out of Chair: Minimum Assistance X 1 Exam Const: General: comfortable and no acute distress Other: and the bruising and hematoma in the left breast in the axilla remains stable and has been seen both by the probation and patrol agent and also by the surgeon Dr. Quentin VOSSMT: General nose exam: Normal nares present Mouth: Yes moist mucous membranes Eyes: General: appearance normal, both eyes and all related structures Neck: Neck: supple and no JVD Resp: Effort & Inspection: normal respiratory effort Auscultation: clear to auscultation bilaterally Cardio: Rate: regular rate Rhythm: regular rhythm GI: GI Palp: Yes Soft to palpation Auscultation: normal bowel sounds Skin: General skin exam: normal color Neuro: Other: patient remains awake alert well oriented time place and person is speech language functions normal cranial examination is normal her strength is decreased in the lower extremities and compromised in the left upper extremity due to presence of the hematoma around best in the axilla and she is using the lidocaine patch at this time Extrem: Other: limitation of the left hip movement incision is clean Psych: Mental Status: mental status grossly normal Objective Data Vital Signs Vital Signs: Vital Signs - 24 hr 09/09/19 20:00 09/09/19 20:04 09/09/19 20:55 Temperature 37.1 C Pulse Rate 73 73 73 Respiratory Rate 20 20 Blood Pressure 113/46 L Pulse Oximetry 97 97 09/09/19 22:00 09/10/19 06:00 09/10/19 08:18 Temperature 37.1 C 37.3 C Pulse Rate 73 65 65 Respiratory Rate 20 18 Blood Pressure 113/46 L 113/48 L Pulse Oximetry 97 92 Intake/Output Intake/Output: Intake & Output 09/07/19 09/08/19 09/09/19 09/10/19 23:59 23:59 23:59 23:59 Intake Total 960 720 720 240 Balance 960 720 720 240 Meds/Results Medications: Active Medications Generic Name Dose Route Start Last Admin Trade Name Freq PRN Reason Stop Dose Admin Acetaminophen 650 mg 09/06/19 14:25 09/10/19 13:36 Tylenol Tablet PO 650 mg Q4H PRN Administration Mild Pain (1-3) or Fever Amlodipine Besylate 10 mg 08/31/19 09:00 09/10/19 08:17 Norvasc PO 10 mg DAILY ABDULLAHI Administration Artificial Tears 1 drop 08/30/19 17:07 Artificial Tears EACH EYE PRN PRN Dry Eye(s) Calcium Carbonate 500 mg 08/31/19 09:00 09/10/19 08:18 Os-Oscar 500 +D Tablet PO 500 mg QAM ABDULLAHI Administration Cyclosporine 1 drop 08/30/19 21:00 09/10/19 09:41 Restasis EACH EYE 1 drop Q12HR ABDULLAHI Administration Docusate Sodium 100 mg 08/30/19 17:00 09/10/19 08:18 Colace Capsule PO 100 mg BID ABDULLAHI Administration Enoxaparin Sodium 74 mg 09/03/19 21:00 09/10/19 08:17 Lovenox SUB-Q 74 mg Q12HR ABDULLAHI Administration Fish Oil 1 gm 08/31/19 09:00 09/10/19 08:17 Lovaza PO 1 gm DAILY ABDULLAHI Administration Fluticasone Propionate 1 spray 08/31/19 09:00 09/10/19 08:17 Flonase 0.05% Nasal [place] NASAL 1 spray DAILY ABDULLAHI Administration F
[2019-09-10 15:53] LABS: Hematocrit 21.3 % (37.0-47.0); Immature Granulocyte Absolute 0.06 K/mm3 (0.00-0.031); Immature Granulocyte Percent A 0.7 % (0-0.5); Mean Corpuscular HGB Conc 32.4 g/dl (32-36); Mean Corpuscular Hemoglobin 30.3 pg (26-34); Mean Corpuscular Volume 93.4 fl (80-100); Mean Platelet Volume 8.7 fl (7.4-10.4); Monocytes Absolute Auto 0.5 K/mm3 (0.1-0.6); Monocytes Percent Auto 6.3 % (2.6-8.5); Neutrophils Absolute Auto 7.3 K/mm3 (1.3-6.7); Nucleated Red Blood Cells Perc 0.4 % (0.0-0.2); Platelet Count Result 301 k/mm3 (150-375); Red Blood Count 2.28 M/mm3 (4.2-5.4); Red Cell Distribution Width 14.8 % (11.5-14.5); White Blood Count 8.4 K/mm3 (4.5-10.0)
--- NOTE | 2019-09-10 15:54 | PM.IMPN ---
Progress Note: A&P Assessment and Plan (1) Hematoma of left breast: Onset Date: ~09/03/19 Code(s): N64.89 - Other specified disorders of breast Status: Acute Assessment and Plan: Patient complains of left axillary discomfort. She has a large ecchymosis overlying the left axilla and left breast. She reports she had previously been wearing her gait belt positioned under her arms and had been lifted from that position. US of left breast performed 09/08 reveals3.7 x 12 x 5.5 cm mass at 2:00 14 cm from the nipple. This is likely a hematoma given patient's Lovenox use. Hgb low at 6.9, and suspect this is related to the hematoma. She is asymptomatic. Will give 1 unit pRBC given Hgb <7.0 Continue acetaminophen prn pain Continue heat and ice Monitor H&H q6H (2) Anemia: Qualifiers: Anemia type: unspecified type Qualified Code(s): D64.9 - Anemia, unspecified Code(s): D64.9 - Anemia, unspecified Status: Acute Assessment and Plan: Normocytic. Hb is 8.6 and Hct is 26.6 on 09/04. Iron studies revealed iron deficiency anemia. Vitamin B12 and folate are sufficient. Hgb today is 6.9 and Hct 21.3. I suspect this is related to her large hematoma. She is asymptomatic. Transfuse 1 unit pRBC Monitor H&H q6H Will check IFOB to rule out GI bleed. 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 Venous doppler US revealed acute thrombosis in the lower extremities bilaterally affecting the right common femoral and superficial femoral veins as well as the left profunda femoral vein. Therapeutic lovenox was initiated 09/03/19. CTA chest was negative for PE. Continue therapeutic lovenox. The patient and Dr. Baker are all on board to continue lovenox at discharge due to hx of GI bleeding and active cancer. Patient's daughter is a nurse and plans to administer injections. Monitor closely for bleeding. Elevate the lower extremities while at rest Continue PT/OT, encourage mobility with assistance Avoid NSAIDs (4) S/P ORIF (open reduction internal fixation) fracture: Code(s): Z98.890 - Other specified postprocedural states; Z87.81 - Personal history of (healed) traumatic fracture Status: Acute Assessment and Plan: She sustained a mechanical fall 08/23/19 and underwent left hemiarthroplasty by Dr. Mai on 08/24/19. She is currently receiving PT/OT at [facility] and progressing well. Postop care per Dr. Mai Continue caltrate 600 plus D Recommend DEXA outpatient Continue PT/OT (5) Hypothyroidism: Qualifiers: Hypothyroidism type: unspecified Qualified Code(s): E03.9 - Hypothyroidism, unspecified Code(s): E03.9 - Hypothyroidism, unspecified Status: Chronic Assessment and Plan: TSH was 1.290 08/24/19. Continue levothyroxine (6) Hypertension: Qualifiers: Hypertension type: essential hypertension Qualified Code(s): I10 - Essential (primary) hypertension Code(s): I10 - Essential (primary) hypertension Status: Chronic Assessment and Plan: BP were reviewed and are on the low end of normal. Today BP is 113/48. She is asymptomatic. She is on several antihypertensives which may be lowering her blood pressure more than desired. She is a fall risk. Will hold amlodipine and losartan Continue metoprolol Order orthostatic blood pressure Monitor blood pressure closely (7) Hypokalemia: Code(s): E87.6 - Hypokalemia Status: Acute Assessment and Plan: Potassium was low initially and the patient is currently receiving daily potassium supplementation. Stable at 4.2 on 09/08 Continue to monitor. Will
[2019-09-10 15:58] LABS: Hemoglobin 6.9 g/dL (12.0-15.0)
[2019-09-11] VITALS (8 sets, daily range): BP systolic 110–129; BP diastolic 47–59; PULSE 66–78; RESP 18–20; TEMP 36.9–37.1; O2SAT 92–97
[2019-09-11 01:11] LABS: Hematocrit 24.7 % (37.0-47.0); Hemoglobin 8.1 g/dL (12.0-15.0)
[2019-09-11 04:52] LABS: Basophils Percent Auto 0.4 % (0.2-1.2); Eosinophils Absolute Auto 0.1 K/mm3 (0-0.3); Eosinophils Percent Auto 1.2 % (0-4.4); Hematocrit 24.3 % (37.0-47.0); Hemoglobin 7.8 g/dL (12.0-15.0); Immature Granulocyte Absolute 0.05 K/mm3 (0.00-0.031); Lymphocytes Absolute Auto 1.15 K/mm3 (0.9-3.2); Lymphocytes Percent Auto 23.2 % (18.3-44.2); Mean Corpuscular HGB Conc 32.1 g/dl (32-36); Mean Corpuscular Hemoglobin 29.7 pg (26-34); Mean Corpuscular Volume 92.4 fl (80-100); Mean Platelet Volume 8.7 fl (7.4-10.4); Monocytes Absolute Auto 0.7 K/mm3 (0.1-0.6); Monocytes Percent Auto 13.5 % (2.6-8.5); Neutrophils Percent Auto 60.7 % (45.5-73.1); Nucleated Red Blood Cells Absolute Auto 0.1 K/mm3 (0.0-0.012); Nucleated Red Blood Cells Perc 1.2 % (0.0-0.2); Platelet Count Result 273 k/mm3 (150-375); Red Blood Count 2.63 M/mm3 (4.2-5.4); Red Cell Distribution Width 15.1 % (11.5-14.5)
[2019-09-11 05:06] LABS: Potassium 4.4 mmol/L (3.4-5.0)
[2019-09-11] MEDS: LEVOTHYROXINE SODIUM 75 MCG TABLET PO (05:46)
[2019-09-11 07:28] LABS: Hematocrit 27.8 % (37.0-47.0); Hemoglobin 8.7 g/dL (12.0-15.0)
[2019-09-11] MEDS: LIDOCAINE 5% PATCH 1 PATCH TRANSDERM ×2 (09:06→09:14)
[2019-09-11] MEDS: ENOXAPARIN 80 MG/0.8 ML SYRINGE 74 MG SUB-Q ×2 (09:07→20:33)
[2019-09-11] MEDS: OMEGA 3 POLYUNSAT FATTY ACIDS 1 GM CAP PO (09:09)
[2019-09-11] MEDS: TRIFLUOPERAZINE HCL 1 MG TABLET 2 MG PO (09:10)
[2019-09-11] MEDS: POTASSIUM CHLORIDE 20 MEQ TABLET.ER 40 MEQ PO (09:12)
[2019-09-11] MEDS: PANTOPRAZOLE 40 MG TABLET PO (09:12)
[2019-09-11] MEDS: FUROSEMIDE 40 MG TABLET PO (09:12)
[2019-09-11] MEDS: FLUTICASONE PROPIONATE 0.05% NA SPR 16 GM BTL (*BKC) 1 SPRAY NASAL (09:13)
[2019-09-11] MEDS: DOCUSATE SODIUM 100 MG CAPSULE PO ×2 (09:13→18:00)
[2019-09-11] MEDS: METOPROLOL TARTRATE 50 MG TAB PO ×2 (09:14→20:32)
[2019-09-11] MEDS: polyethylene glycoL 3350 17 GM POWD.PACK PO (09:15)
[2019-09-11] MEDS: OPTI-GEN TAB 1 TABLET PO (09:15)
[2019-09-11] MEDS: predniSONE 10 MG TABLET PO (09:18)
[2019-09-11] MEDS: MORPHINE SULFATE 15 MG TABCR 30 MG PO ×2 (09:18→20:27)
[2019-09-11 13:37] LABS: Hematocrit 27.9 % (37.0-47.0)
--- NOTE | 2019-09-11 14:57 | PM.IMPN ---
Progress Note: A&P Assessment and Plan (1) Hematoma of left breast: Onset Date: ~09/03/19 Code(s): N64.89 - Other specified disorders of breast Status: Acute Assessment and Plan: Patient complains of left axillary discomfort. She has a large ecchymosis overlying the left axilla and left breast. She reports she had previously been wearing her gait belt positioned under her arms and had been lifted from that position. US of left breast performed 09/08 reveals3.7 x 12 x 5.5 cm mass at 2:00 14 cm from the nipple. This is likely a hematoma given patient's Lovenox use. Suspect acute anemia is related to hematoma. She received 1 unit PRBC on 09/09 as hemoglobin was low at 6.9. Hemoglobin now stable at 8.7. She remained asymptomatic. Continue acetaminophen prn pain Continue heat and ice Continue lidocaine patch for symptomatic relief (2) Anemia: Qualifiers: Anemia type: unspecified type Qualified Code(s): D64.9 - Anemia, unspecified Code(s): D64.9 - Anemia, unspecified Status: Acute Assessment and Plan: Normocytic. Iron studies revealed iron deficiency anemia. Vitamin B12 and folate are sufficient. Patient was significantly anemic with HGB 6.9 and HCT 21.3 on 09/10/2019 and she was transfused 1 unit PRBC. This was more than likely related to hematoma. She remained asymptomatic. Today, hemoglobin has been stable ranging from 8.1-9.0 Continue to closely monitor H&H Will check IFOB to rule out GI bleed. 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 Venous doppler US revealed acute thrombosis in the lower extremities bilaterally affecting the right common femoral and superficial femoral veins as well as the left profunda femoral vein. Therapeutic lovenox was initiated 09/03/19. CTA chest was negative for PE. Continue therapeutic lovenox. The patient and Dr. Baker are all on board to continue lovenox at discharge due to hx of GI bleeding and active cancer. Patient's daughter is a nurse and plans to administer injections. Monitor closely for bleeding. Elevate the lower extremities while at rest Continue PT/OT, encourage mobility with assistance Avoid NSAIDs (4) S/P ORIF (open reduction internal fixation) fracture: Code(s): Z98.890 - Other specified postprocedural states; Z87.81 - Personal history of (healed) traumatic fracture Status: Acute Assessment and Plan: She sustained a mechanical fall 08/23/19 and underwent left hemiarthroplasty by Dr. Mai on 08/24/19. She is currently receiving PT/OT at [facility] and progressing well. Postop care per Dr. Mai Continue caltrate 600 plus D Recommend DEXA outpatient Continue PT/OT (5) Hypothyroidism: Qualifiers: Hypothyroidism type: unspecified Qualified Code(s): E03.9 - Hypothyroidism, unspecified Code(s): E03.9 - Hypothyroidism, unspecified Status: Chronic Assessment and Plan: TSH was 1.290 08/24/19. Continue levothyroxine (6) Hypertension: Qualifiers: Hypertension type: essential hypertension Qualified Code(s): I10 - Essential (primary) hypertension Code(s): I10 - Essential (primary) hypertension Status: Chronic Assessment and Plan: BP were reviewed and are on the low to low-normal. She has been asymptomatic, however she is on several antihypertensives which may be lowering her blood pressure more than desired. She is a fall risk. Will hold amlodipine and losartan at this time Continue metoprolol Check orthostatic blood pressure Monitor blood pressure closely (7) Hypokalemia: Code(s): E87.6 - Hypokalemia Status: Acu
--- NOTE | 2019-09-11 17:26 | WPDNEURORHBP ---
Subjective Date/time seen: 09/11/19 17:26 Interval history: this 83-year-old woman is here after having had surgery for left hip for fracture. She had developed a DVT for which she is on Lovenox therapeutic dosages later she developed hematoma of the left breast which is being watched and carefully observed her hemoglobin was down yesterday so she received a pack of red blood cells and her hemoglobin is better her pain control is fair she denies any headache nausea vomiting chest pain shortness of breath fever chills or sore throat Review of Systems Review of Systems: All systems reviewed & are unremarkable except as noted in HPI and below Functional Status Ambulation Ability Ability to Ambulate 10 Feet: Standby Assistance Ability to Ambulate 50 Feet With 2 Turns: Standby Assistance Ambulation Assistive Devices: Walker, Wheeled Transfers Ability Ability to Transfer In/Out of Chair: Minimum Assistance X 1 Exam Const: General: comfortable and no acute distress HENMT: General nose exam: Normal nares present Mouth: Yes moist mucous membranes Eyes: General: appearance normal, both eyes and all related structures Neck: Neck: supple and no JVD Resp: Effort & Inspection: normal respiratory effort Auscultation: clear to auscultation bilaterally Cardio: Rate: regular rate Rhythm: regular rhythm GI: GI Palp: Yes Soft to palpation Auscultation: normal bowel sounds Skin: General skin exam: normal color and no rashes or lesions noted Other: this size of the hematoma on the around the left breast and the bruising on the left side is stable I do not clinical see any increase in size Neuro: Other: patient is awake and alert well oriented in time place and person with normal speech and language function the only weakness is related to the surgery of the on left hip the incision is clean Extrem: Other: limitation of the hip movement and also mild swelling of the legs Psych: Mental Status: mental status grossly normal Objective Data Vital Signs Vital Signs: Vital Signs - 24 hr 09/10/19 20:32 09/10/19 20:49 09/10/19 20:53 Temperature 36.9 C 37.1 C Pulse Rate 84 74 84 Respiratory Rate 18 18 Blood Pressure 135/58 L 115/49 L Pulse Oximetry 94 95 09/10/19 21:49 09/10/19 22:49 09/10/19 23:35 Temperature 37.3 C 37.3 C 37.5 C Pulse Rate 74 70 66 Respiratory Rate 18 18 18 Blood Pressure 133/58 L 135/58 L 132/80 Pulse Oximetry 96 96 95 09/11/19 05:55 09/11/19 09:14 09/11/19 14:00 Temperature 37.1 C 36.9 C Pulse Rate 71 72 78 Respiratory Rate 18 18 Blood Pressure 126/51 L 110/59 L Pulse Oximetry 92 94 Intake/Output Intake/Output: Intake & Output 09/08/19 09/09/19 09/10/19 09/11/19 23:59 23:59 23:59 23:59 Intake Total 639 979 0611 660 Balance 576 517 1741 660 Meds/Results Medications: Active Medications Generic Name Dose Route Start Last Admin Trade Name Freq PRN Reason Stop Dose Admin Acetaminophen 650 mg 09/06/19 14:25 09/10/19 13:36 Tylenol Tablet PO 650 mg Q4H PRN Administration Mild Pain (1-3) or Fever Amlodipine Besylate 10 mg 08/31/19 09:00 09/10/19 08:17 Norvasc PO 10 mg DAILY ABDULLAHI Administration Artificial Tears 1 drop 08/30/19 17:07 Artificial Tears EACH EYE PRN PRN Dry Eye(s) Calcium Carbonate 500 mg 08/31/19 09:00 09/11/19 09:12 Os-Oscar 500 +D Tablet PO 500 mg QAM ABDULLAHI Administration Cyclosporine 1 drop 08/30/19 21:00 09/11/19 09:16 Restasis EACH EYE 1 drop Q12HR ABDULLAHI Administration Docusate Sodium 100 mg 08/30/19 17:00 09/11/19 09:13 Colace Capsule PO 100 mg BID ABDULLAHI Administration Enoxaparin Sodium 74 mg 09/03/19 21:00 09/11/19 09:07 Lovenox SUB-Q 74 mg Q12HR ABDULLAHI Administration Fish Oil 1 gm 08/31/19 09:00 09/11/19 09:09 Lovaza PO 1 gm DAILY ABDULLAHI Administration Fluticasone Propionate 1 spray 08/31/19 09:00 09/11/19 09:13 Flonase 0.05% Nasal [place] NASAL 1 spray MARIA LUZ
[2019-09-11] MEDS: ACETAMINOPHEN 325 MG TABLET 650 MG PO (18:02)
[2019-09-11] MEDS: MAGNESIUM HYDROXIDE SUSP 30 ML UDC PO (18:03)
[2019-09-11 20:26] LABS: Hematocrit 25.9 % (37.0-47.0); Hemoglobin 8.3 g/dL (12.0-15.0)
[2019-09-11] MEDS: SENNA/DOCUSATE SODIUM TABLET 1 TAB PO (20:31)
[2019-09-11 20:33] LABS: IFOB Positive Control Positive; Immunochemical Fecal Occult Bl Negative (N)
[2019-09-12 04:44] LABS: Hematocrit 24.4 % (37.0-47.0); Hemoglobin 7.9 g/dL (12.0-15.0)
[2019-09-12 05:00] LABS: Blood Urea Nitrogen 14 mg/dL (7-17); Calcium 8.3 mg/dL (8.4-10.2); Carbon Dioxide 30 mmol/L (22-30); Chloride 95 mmol/L (98-107); Estimated CRCL calculation 67 ml/min; Estimated Glomerular Filt Rate > 60; Glucose 81 mg/dL (65-105); Magnesium 2.1 mg/dL (1.6-2.3); Potassium 4.2 mmol/L (3.4-5.0); Sodium 127 mmol/L (137-145)
[2019-09-12] MEDS: LEVOTHYROXINE SODIUM 75 MCG TABLET PO (05:58)
[2019-09-12 06:35] VITALS: BP 129/47; PULSE 65; RESP 18; TEMP 36.9; O2SAT 93
[2019-09-12] MEDS: MORPHINE SULFATE 15 MG TABCR 30 MG PO ×2 (08:21→20:04)
[2019-09-12] MEDS: polyethylene glycoL 3350 17 GM POWD.PACK PO (08:22)
[2019-09-12] MEDS: FLUTICASONE PROPIONATE 0.05% NA SPR 16 GM BTL (*BKC) 1 SPRAY NASAL (08:22)
[2019-09-12] MEDS: LIDOCAINE 5% PATCH 1 PATCH TRANSDERM ×2 (08:23)
[2019-09-12] MEDS: TRIFLUOPERAZINE HCL 1 MG TABLET 2 MG PO (08:24)
[2019-09-12] MEDS: OMEGA 3 POLYUNSAT FATTY ACIDS 1 GM CAP PO (08:24)
[2019-09-12] MEDS: PANTOPRAZOLE 40 MG TABLET PO (08:24)
[2019-09-12 08:25] VITALS: PULSE 66
[2019-09-12] MEDS: METOPROLOL TARTRATE 50 MG TAB PO ×2 (08:25→20:04)
[2019-09-12] MEDS: OPTI-GEN TAB 1 TABLET PO (08:25)
[2019-09-12] MEDS: ENOXAPARIN 80 MG/0.8 ML SYRINGE 74 MG SUB-Q ×2 (08:25→20:09)
[2019-09-12] MEDS: predniSONE 10 MG TABLET PO (08:25)
[2019-09-12] MEDS: POTASSIUM CHLORIDE 20 MEQ TABLET.ER 40 MEQ PO (08:26)
[2019-09-12 08:50] VITALS: PULSE 64; RESP 16
[2019-09-12 14:00] VITALS: BP 127/58; PULSE 73; RESP 20; TEMP 37.2; O2SAT 93
--- NOTE | 2019-09-12 15:24 | PM.IMPN ---
Progress Note: A&P Assessment and Plan (1) Hematoma of left breast: Onset Date: ~09/03/19 Code(s): N64.89 - Other specified disorders of breast Status: Acute Assessment and Plan: Patient complains of left axillary discomfort. She has a large ecchymosis overlying the left axilla and left breast. She reports she had previously been wearing her gait belt positioned under her arms and had been lifted from that position. US of left breast performed 09/08 reveals3.7 x 12 x 5.5 cm mass at 2:00 14 cm from the nipple. This is likely a hematoma given patient's Lovenox use. Suspect acute anemia is related to hematoma. She received 1 unit PRBC on 09/09 as hemoglobin was low at 6.9. Hemoglobin now stable at 7.9. Continue acetaminophen prn pain Continue heat and ice Continue lidocaine patch for symptomatic relief (2) Anemia: Qualifiers: Anemia type: unspecified type Qualified Code(s): D64.9 - Anemia, unspecified Code(s): D64.9 - Anemia, unspecified Status: Acute Assessment and Plan: Normocytic. Iron studies revealed iron deficiency anemia. Vitamin B12 and folate are sufficient. Patient was significantly anemic with HGB 6.9 and HCT 21.3 on 09/10/2019 and she was transfused 1 unit PRBC. This was more than likely related to hematoma. IFOB negative. She remained asymptomatic. Today, hemoglobin is 7.9 and hematocrit 24.4. 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 Venous doppler US revealed acute thrombosis in the lower extremities bilaterally affecting the right common femoral and superficial femoral veins as well as the left profunda femoral vein. Therapeutic lovenox was initiated 09/03/19. CTA chest was negative for PE. Continue therapeutic lovenox. The patient and Dr. Baker are all on board to continue lovenox at discharge due to hx of GI bleeding and active cancer. Patient's daughter is a nurse and plans to administer injections. Monitor closely for bleeding. Elevate the lower extremities while at rest Continue PT/OT, encourage mobility with assistance Avoid NSAIDs (4) S/P ORIF (open reduction internal fixation) fracture: Code(s): Z98.890 - Other specified postprocedural states; Z87.81 - Personal history of (healed) traumatic fracture Status: Acute Assessment and Plan: She sustained a mechanical fall 08/23/19 and underwent left hemiarthroplasty by Dr. Mai on 08/24/19. She is currently receiving PT/OT at [facility] and progressing well. Postop care per Dr. Mai Continue caltrate 600 plus D Recommend DEXA outpatient Continue PT/OT (5) Edema of lower extremity: Code(s): R60.0 - Localized edema Status: Acute Assessment and Plan: Patient has 2+ pitting edema in bilateral lower extremities. This is likely due to decreased activity. Additionally patient has bilateral DVTs. She is postop left hip repair. She has a history of lower extremity edema and takes Lasix prn, which has been stopped since surgery. Begin 60 mg Lasix 1 time. Following, will resume home dose of 40 mg Lasix. Will keep scheduled until edema improves and then may transition to prn Apply Jeronimo wraps to bilateral lower extremities for compression. (6) Hypothyroidism: Qualifiers: Hypothyroidism type: unspecified Qualified Code(s): E03.9 - Hypothyroidism, unspecified Code(s): E03.9 - Hypothyroidism, unspecified Status: Chronic Assessment and Plan: TSH was 1.290 08/24/19. Continue levothyroxine (7) Hypertension: Qualifiers: Hypertension type: essential hypertension Qualified Code(s):
[2019-09-12 15:34] LABS: Hematocrit 25.7 % (37.0-47.0); Hemoglobin 8.2 g/dL (12.0-15.0)
[2019-09-12] MEDS: FUROSEMIDE 20 MG TABLET 60 MG PO (16:21)
--- NOTE | 2019-09-12 17:13 | WPDNEURORHBP ---
Subjective Date/time seen: 09/12/19 17:13 Interval history: this 83-year-old woman is here after having had bipolar left hip replacement, being treated for DVT and also has left breast hematoma overall her fair control is fair and stable she denies any headache nausea vomiting chest pain shortness of breath fever chills or sore throat Review of Systems Review of Systems: All systems reviewed & are unremarkable except as noted in HPI and below Functional Status Ambulation Ability Ability to Ambulate 10 Feet: Contact Guard Ability to Ambulate 50 Feet With 2 Turns: Contact Guard Ambulation Assistive Devices: Walker, Wheeled Transfers Ability Ability to Transfer In/Out of Chair: Minimum Assistance X 1 Exam Const: General: comfortable and no acute distress HENMT: General nose exam: Normal nares present Mouth: Yes moist mucous membranes Eyes: General: appearance normal, both eyes and all related structures Neck: Neck: supple and no JVD Resp: Effort & Inspection: normal respiratory effort Auscultation: clear to auscultation bilaterally Other: the hematoma in the left breast and the axilla is stable Cardio: Rate: regular rate Rhythm: regular rhythm GI: GI Palp: Yes Soft to palpation Auscultation: normal bowel sounds Skin: General skin exam: normal color and no rashes or lesions noted Other: except the area of the bruising around the left breast and the left axilla Neuro: Other: the patient remains awake and alert with improving strength and good spirits Extrem: General: normal to inspection Other: the incision from the surgery is clean Psych: Mental Status: mental status grossly normal Objective Data Vital Signs Vital Signs: Vital Signs - 24 hr 09/11/19 20:00 09/11/19 20:32 09/11/19 21:10 Temperature 37.1 C Pulse Rate 75 76 76 Respiratory Rate 20 20 Blood Pressure 113/53 L Pulse Oximetry 97 97 09/12/19 06:35 09/12/19 08:25 09/12/19 08:50 Temperature 36.9 C Pulse Rate 65 66 64 Respiratory Rate 18 16 Blood Pressure 129/47 L Pulse Oximetry 93 09/12/19 14:00 Temperature 37.2 C Pulse Rate 73 Respiratory Rate 20 Blood Pressure 127/58 L Pulse Oximetry 93 Intake/Output Intake/Output: Intake & Output 09/09/19 09/10/19 09/11/19 09/12/19 23:59 23:59 23:59 23:59 Intake Total 720 1070 1200 480 Balance 720 1070 1200 480 Meds/Results Medications: Active Medications Generic Name Dose Route Start Last Admin Trade Name Esvinq PRN Reason Stop Dose Admin Acetaminophen 650 mg 09/06/19 14:25 09/11/19 18:02 Tylenol Tablet PO 650 mg Q4H PRN Administration Mild Pain (1-3) or Fever Amlodipine Besylate 10 mg 08/31/19 09:00 09/10/19 08:17 Norvasc PO 10 mg DAILY ABDULLAHI Administration Artificial Tears 1 drop 08/30/19 17:07 Artificial Tears EACH EYE PRN PRN Dry Eye(s) Calcium Carbonate 500 mg 08/31/19 09:00 09/12/19 08:24 Os-Oscar 500 +D Tablet PO 500 mg QAM ABDULLAHI Administration Cyclosporine 1 drop 08/30/19 21:00 09/12/19 08:24 Restasis EACH EYE 1 drop Q12HR ABDULLAHI Administration Docusate Sodium 100 mg 08/30/19 17:00 09/11/19 18:00 Colace Capsule PO 100 mg BID ABDULLAHI Administration Enoxaparin Sodium 74 mg 09/03/19 21:00 09/12/19 08:25 Lovenox SUB-Q 74 mg Q12HR ABDULLAHI Administration Fish Oil 1 gm 08/31/19 09:00 09/12/19 08:24 Lovaza PO 1 gm DAILY ABDULLAHI Administration Fluticasone Propionate 1 spray 08/31/19 09:00 09/12/19 08:22 Flonase 0.05% Nasal [place] NASAL 1 spray DAILY ABDULLAHI Administration Furosemide 40 mg 08/30/19 16:49 09/11/19 09:12 Lasix Tablet PO 40 mg DAILY PRN Administration swelling Furosemide 40 mg 09/13/19 09:00 Lasix Tablet PO DAILY ABDULLAHI Levothyroxine Sodium 75 mcg 08/31/19 06:30 09/12/19 05:58 Synthroid PO 75 mcg DAILY@0630 ABDULLAHI Administration Lidocaine 1 patch 09/09/19 09:00 09/12/19 08:23 Lidoderm TRANSDERM 1 patch SERENITY
[2019-09-12] MEDS: SENNA/DOCUSATE SODIUM TABLET 1 TAB PO (20:04)
[2019-09-12 22:00] VITALS: BP 123/61; PULSE 78; RESP 17; TEMP 36.6; O2SAT 99
[2019-09-13] VITALS (7 sets, daily range): BP systolic 125–144; BP diastolic 51–64; PULSE 69–78; RESP 18–20; TEMP 36.9–37.1; O2SAT 93–96
[2019-09-13 05:08] LABS: Hematocrit 23.9 % (37.0-47.0); Hemoglobin 7.6 g/dL (12.0-15.0)
[2019-09-13] MEDS: LEVOTHYROXINE SODIUM 75 MCG TABLET PO (06:03)
--- NOTE | 2019-09-13 08:23 | PCPTNOTE ---
Mala Crouch PT completed an inpatient rehab wheelchair evaluation on [facility] on 09/13/2019. The patient is unable to safely and independently ambulate household distances due to their current impairments. Their diagnosis is bipolar left hip replacement and their impairments include decreased strength, decreased endurance, decreased range of motion, decreased balance, and lower extremity weakness. Weight bearing status is weight-bearing as tolerated on the bilateral lower legs. The patient demonstrates significant functional mobility limitations that impair their ability to participate in mobility-related activities of daily living (MRADLs), including toileting, feeding, dressing, grooming, and bathing in the customary locations in the home. These limitations cannot be sufficiently resolved by the use of an appropriately fitted cane or walker. It is recommended that the patient utilize a wheelchair for functional mobility within the home in order to facilitate optimal safety, independence and participation in all MRADL's and adequately access their home environment on a regular basis. The patient's home provides adequate access between rooms, maneuvering space, and surfaces to accommodate the recommended wheelchair. The use of a wheelchair for functional mobility is strongly recommended and the patient is receptive to using the wheelchair. The use of this wheelchair will significantly improve the patient's ability to participate in MRADLS and the patient will use it on a regular basis in the home. This will facilitate optimal safety, independence, and participation. The patient has demonstrated sufficient physical and mental capabilities needed to safely propel a manual wheelchair that is provided in the home during a typical day. Recommended Wheelchair Frame: STANDARD Recommended Wheelchair Size: 16 x 18 Recommended Wheelchair Cushion:standard Wheelchair Leg Recommendations: Bilateral elevating leg rests - Elevating legrests are recommended because the patient has significant edema of the lower extremities that requires an elevating legrest. -Anti-tippers are recommended due to patient demonstrating increased risk for falls. They would benefit from anti-tippers with added safety and stabilization. -Adjustable arm height is recommended because the patient requires an arm height that is different than that which is available using non-adjustable arms. The patient spends at least 2 hours per day in the wheelchair. Mala Crouch PT, DPT ___5/18/20 Evaluating Therapist Date I agree with and certify that the above recommendation is medically necessary. Referring Physician Date
[2019-09-13] MEDS: PANTOPRAZOLE 40 MG TABLET PO (09:45)
[2019-09-13] MEDS: predniSONE 10 MG TABLET PO (09:45)
[2019-09-13] MEDS: TRIFLUOPERAZINE HCL 1 MG TABLET 2 MG PO (09:46)
[2019-09-13] MEDS: POTASSIUM CHLORIDE 20 MEQ TABLET.ER 40 MEQ PO (09:46)
[2019-09-13] MEDS: FUROSEMIDE 40 MG TABLET PO (09:46)
[2019-09-13] MEDS: OPTI-GEN TAB 1 TABLET PO (09:47)
[2019-09-13] MEDS: ENOXAPARIN 80 MG/0.8 ML SYRINGE 74 MG SUB-Q ×2 (09:47→20:46)
[2019-09-13] MEDS: FLUTICASONE PROPIONATE 0.05% NA SPR 16 GM BTL (*BKC) 1 SPRAY NASAL (09:47)
[2019-09-13] MEDS: LIDOCAINE 5% PATCH 1 PATCH TRANSDERM ×2 (09:47→09:48)
[2019-09-13] MEDS: OMEGA 3 POLYUNSAT FATTY ACIDS 1 GM CAP PO (09:48)
[2019-09-13] MEDS: METOPROLOL TARTRATE 50 MG TAB PO ×2 (09:48→20:45)
[2019-09-13] MEDS: polyethylene glycoL 3350 17 GM POWD.PACK PO (09:49)
[2019-09-13] MEDS: MORPHINE SULFATE 15 MG TABCR 30 MG PO ×2 (09:57→20:45)
--- NOTE | 2019-09-13 10:49 | WPDNEURORHBP ---
Subjective Date/time seen: 09/13/19 10:49 S/pLeft hip bipolar replacement,DVT and left breast hematoma Review of Systems Review of Systems: All systems reviewed & are unremarkable except as noted in HPI and below Functional Status Ambulation Ability Ability to Ambulate 10 Feet: Standby Assistance Ability to Ambulate 50 Feet With 2 Turns: Standby Assistance Ambulation Assistive Devices: Walker, Wheeled Transfers Ability Ability to Transfer In/Out of Chair: Minimum Assistance X 1 Exam Const: General: cooperative, comfortable and no acute distress HENMT: Head: normal to inspection General nose exam: No nasal discharge present Mouth: Yes Normal oral and palatal mucosa present Eyes: General: appearance normal, both eyes and all related structures Neck: Neck: full ROM Resp: Effort & Inspection: normal respiratory effort Auscultation: clear to auscultation bilaterally GI: Auscultation: normal bowel sounds Skin: General skin exam: other (bruising around left breast) Neuro: General: oriented to person, oriented to place and oriented to time Cognition (Neuro): normal cognition Motor exam (neuro): Pronator motor function not present Psych: Appearance: grossly normal Objective Data Vital Signs Vital Signs: Vital Signs - 24 hr 09/12/19 14:00 09/12/19 22:00 09/13/19 06:00 Temperature 37.2 C 36.6 C 36.9 C Pulse Rate 73 78 69 Respiratory Rate 20 17 18 Blood Pressure 127/58 L 123/61 132/52 L Pulse Oximetry 93 99 93 09/13/19 09:48 Temperature Pulse Rate 69 Respiratory Rate Blood Pressure Pulse Oximetry Intake/Output Intake/Output: Intake & Output 09/10/19 09/11/19 09/12/19 09/13/19 23:59 23:59 23:59 23:59 Intake Total 1070 1200 720 240 Balance 1070 1200 720 240 Meds/Results Medications: Active Medications Generic Name Dose Route Start Last Admin Trade Name Freq PRN Reason Stop Dose Admin Acetaminophen 650 mg 09/06/19 14:25 09/11/19 18:02 Tylenol Tablet PO 650 mg Q4H PRN Administration Mild Pain (1-3) or Fever Amlodipine Besylate 10 mg 08/31/19 09:00 09/10/19 08:17 Norvasc PO 10 mg DAILY ABDULLAHI Administration Artificial Tears 1 drop 08/30/19 17:07 Artificial Tears EACH EYE PRN PRN Dry Eye(s) Calcium Carbonate 500 mg 08/31/19 09:00 09/13/19 09:47 Os-Oscar 500 +D Tablet PO 500 mg QAM ABDULLAHI Administration Cyclosporine 1 drop 08/30/19 21:00 09/13/19 09:47 Restasis EACH EYE 1 drop Q12HR ABDULLAHI Administration Docusate Sodium 100 mg 08/30/19 17:00 09/11/19 18:00 Colace Capsule PO 100 mg BID ABDULLAHI Administration Enoxaparin Sodium 74 mg 09/03/19 21:00 09/13/19 09:47 Lovenox SUB-Q 74 mg Q12HR ABDULLAHI Administration Fish Oil 1 gm 08/31/19 09:00 09/13/19 09:48 Lovaza PO 1 gm DAILY ABDULLAHI Administration Fluticasone Propionate 1 spray 08/31/19 09:00 09/13/19 09:47 Flonase 0.05% Nasal [place] NASAL 1 spray DAILY ABDULLAHI Administration Furosemide 40 mg 08/30/19 16:49 09/11/19 09:12 Lasix Tablet PO 40 mg DAILY PRN Administration swelling Furosemide 40 mg 09/13/19 09:00 09/13/19 09:46 Lasix Tablet PO 40 mg DAILY ABDULLAHI Administration Levothyroxine Sodium 75 mcg 08/31/19 06:30 09/13/19 06:03 Synthroid PO 75 mcg DAILY@0630 ABDULLAHI Administration Lidocaine 1 patch 09/09/19 09:00 09/13/19 09:47 Lidoderm TRANSDERM 1 patch DAILY ABDULLAHI Administration Lidocaine 1 patch 09/10/19 09:00 09/13/19 09:48 Lidoderm TRANSDERM 1 patch DAILY ABDULLAHI Administration Losartan Potassium 100 mg 08/31/19 09:00 09/10/19 08:18 Cozaar PO 100 mg DAILY ABDULLAHI Administration Magnesium Hydroxide 30 ml 08/30/19 17:03 09/11/19 18:03 Milk Of Magnesia PO 30 ml DAILY PRN Administration Constipation Metoprolol Tartrate 50 mg 08/30/19 21:00 09/13/19 09:48 Lopressor PO 50 mg Q12HR ABDULLAHI Administration Morphine Sulfate 30 mg 08/30/19 21:00 09/13/19 09:57 M
--- NOTE | 2019-09-13 11:36 | PM.IMPN ---
Progress Note: A&P Assessment and Plan (1) Hematoma of left breast: Onset Date: ~09/03/19 Code(s): N64.89 - Other specified disorders of breast Status: Acute Assessment and Plan: Patient complains of left axillary discomfort. She has a large ecchymosis overlying the left axilla and left breast. She reports she had previously been wearing her gait belt positioned under her arms and had been lifted from that position. US of left breast performed 09/08 reveals 3.7 x 12 x 5.5 cm mass at 2:00 14 cm from the nipple. This is likely a hematoma given patient's Lovenox use. Suspect acute anemia is related to hematoma. She received 1 unit PRBC on 09/09 as hemoglobin was low at 6.9. Hemoglobin remaining stable now at 7.6. Continue acetaminophen prn pain Continue heat and ice therapy prn Continue lidocaine patch for symptomatic relief (2) Anemia: Qualifiers: Anemia type: unspecified type Qualified Code(s): D64.9 - Anemia, unspecified Code(s): D64.9 - Anemia, unspecified Status: Acute Assessment and Plan: Normocytic. Vitamin B12 and folate are sufficient. Patient was significantly anemic with HGB 6.9 and HCT 21.3 on 09/10/2019 and she was transfused 1 unit PRBC. This was more than likely related to hematoma. IFOB negative. She remained asymptomatic. Today, hemoglobin is 7.6 and hematocrit 23.9. 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 Venous doppler US revealed acute thrombosis in the lower extremities bilaterally affecting the right common femoral and superficial femoral veins as well as the left profunda femoral vein. Therapeutic lovenox was initiated 09/03/19. CTA chest was negative for PE. Continue therapeutic lovenox. The patient and Dr. Baker are all on board to continue lovenox at discharge due to hx of GI bleeding and active cancer. Patient's daughter is a nurse and plans to administer injections. Monitor closely for bleeding. Elevate the lower extremities while at rest Continue PT/OT, encourage mobility with assistance Avoid NSAIDs (4) S/P ORIF (open reduction internal fixation) fracture: Code(s): Z98.890 - Other specified postprocedural states; Z87.81 - Personal history of (healed) traumatic fracture Status: Acute Assessment and Plan: She sustained a mechanical fall 08/23/19 and underwent left hemiarthroplasty by Dr. Mia on 08/24/19. She is currently receiving PT/OT at [facility] and progressing well. Postop care per Dr. Mai Continue caltrate 600 plus D Recommend DEXA outpatient Continue PT/OT Hopeful discharge tomorrow (5) Edema of lower extremity: Code(s): R60.0 - Localized edema Status: Acute Assessment and Plan: Patient has 2+ pitting edema in bilateral lower extremities. Likely due to combination of dependency, bilateral DVTs, and home Lasix being held since admission. She is postop left hip repair. She has a history of lower extremity edema and takes Lasix prn, which has been stopped since surgery. She was given 60 mg Lasix on 09/11. Resume home dose of 40 mg Lasix. Will keep scheduled until edema improves and then may transition to prn Apply Jeronimo wraps to bilateral lower extremities for compression. (6) Hypothyroidism: Qualifiers: Hypothyroidism type: unspecified Qualified Code(s): E03.9 - Hypothyroidism, unspecified Code(s): E03.9 - Hypothyroidism, unspecified Status: Chronic Assessment and Plan: TSH was 1.290 08/24/19. Continue levothyroxine (7) Hypertension: Qualifiers: Hypertension type: essential hypertension Quali
--- NOTE | 2019-09-13 12:40 | PCDIET ---
Nutrition Follow-Up Complete: Nutrition Diagnosis: Predicted suboptimal oral intake related to decreased appetite as evidenced by patient statement. Nutrition Goal: Patient to consume 75% of meals/supplements. Goal met. Patient consuming 90-100% of meals on regular diet. Previously taking Ensure Enlive which has since been discontinued. Last recorded weight is 74 kg. Recommend obtaining new weight. Bowel Motility: +BM on 09/12/19. Labs Reviewed: Hgb (7.6), Hct (23.9) Meds Noted: Miralax, KCl, Prednisone, Oscal 500 + D, Protonix, Colace, Lasix, Lovaza, Ocuvite Additional Notes: Left elbow scab. Left hip incision. No reported pressure sores. Spoke with patient via phone due to COVID-19 precautions. Patient reports good appetite and denies concerns. Nutrition Monitoring and Evaluation: Follow up every 7 days.
[2019-09-13] MEDS: DOCUSATE SODIUM 100 MG CAPSULE PO (17:52)
[2019-09-13] MEDS: ACETAMINOPHEN 325 MG TABLET 650 MG PO (17:54)
[2019-09-14 04:54] LABS: Basophils Percent Auto 0.2 % (0.2-1.2); Eosinophils Absolute Auto 0.1 K/mm3 (0-0.3); Eosinophils Percent Auto 1.3 % (0-4.4); Hematocrit 24.6 % (37.0-47.0); Hemoglobin 7.7 g/dL (12.0-15.0); Immature Granulocyte Absolute 0.07 K/mm3 (0.00-0.031); Immature Granulocyte Percent A 1.5 % (0-0.5); Lymphocytes Absolute Auto 1.07 K/mm3 (0.9-3.2); Lymphocytes Percent Auto 23.2 % (18.3-44.2); Mean Corpuscular HGB Conc 31.3 g/dl (32-36); Mean Corpuscular Hemoglobin 29.4 pg (26-34); Mean Corpuscular Volume 93.9 fl (80-100); Mean Platelet Volume 8.6 fl (7.4-10.4); Monocytes Absolute Auto 0.6 K/mm3 (0.1-0.6); Monocytes Percent Auto 13.9 % (2.6-8.5); Neutrophils Absolute Auto 2.8 K/mm3 (1.3-6.7); Neutrophils Percent Auto 59.9 % (45.5-73.1); Nucleated Red Blood Cells Perc 0.9 % (0.0-0.2); Platelet Count Result 288 k/mm3 (150-375); Red Blood Count 2.62 M/mm3 (4.2-5.4); Red Cell Distribution Width 15.6 % (11.5-14.5); White Blood Count 4.6 K/mm3 (4.5-10.0)
[2019-09-14 05:08] LABS: Blood Urea Nitrogen 15 mg/dL (7-17); Calcium 8.3 mg/dL (8.4-10.2); Carbon Dioxide 31 mmol/L (22-30); Chloride 95 mmol/L (98-107); Estimated CRCL calculation 82 ml/min; Estimated Glomerular Filt Rate > 60; Glucose 83 mg/dL (65-105); Potassium 3.8 mmol/L (3.4-5.0); Sodium 128 mmol/L (137-145)
[2019-09-14 06:00] VITALS: BP 126/52; PULSE 70; RESP 18; TEMP 37.3; O2SAT 94
[2019-09-14] MEDS: LEVOTHYROXINE SODIUM 75 MCG TABLET PO (06:04)
[2019-09-14] MEDS: polyethylene glycoL 3350 17 GM POWD.PACK PO (08:38)
[2019-09-14] MEDS: LIDOCAINE 5% PATCH 1 PATCH TRANSDERM ×2 (08:38)
[2019-09-14 08:39] VITALS: PULSE 70
[2019-09-14] MEDS: predniSONE 10 MG TABLET PO (08:39)
[2019-09-14] MEDS: POTASSIUM CHLORIDE 20 MEQ TABLET.ER 40 MEQ PO (08:39)
[2019-09-14] MEDS: TRIFLUOPERAZINE HCL 1 MG TABLET 2 MG PO (08:39)
[2019-09-14] MEDS: FUROSEMIDE 40 MG TABLET PO (08:39)
[2019-09-14] MEDS: OMEGA 3 POLYUNSAT FATTY ACIDS 1 GM CAP PO (08:39)
[2019-09-14] MEDS: METOPROLOL TARTRATE 50 MG TAB PO (08:39)
[2019-09-14] MEDS: PANTOPRAZOLE 40 MG TABLET PO (08:39)
[2019-09-14] MEDS: OPTI-GEN TAB 1 TABLET PO (08:39)
[2019-09-14] MEDS: FLUTICASONE PROPIONATE 0.05% NA SPR 16 GM BTL (*BKC) 1 SPRAY NASAL (08:40)
[2019-09-14] MEDS: MORPHINE SULFATE 15 MG TABCR 30 MG PO (08:40)
[2019-09-14] MEDS: DOCUSATE SODIUM 100 MG CAPSULE PO (09:00)
[2019-09-14 10:21] LABS: Basophils Percent Auto 0.3 % (0.2-1.2); Eosinophils Percent Auto 0.5 % (0-4.4); Hematocrit 29.3 % (37.0-47.0); Hemoglobin 9.3 g/dL (12.0-15.0); Immature Granulocyte Absolute 0.06 K/mm3 (0.00-0.031); Lymphocytes Absolute Auto 0.83 K/mm3 (0.9-3.2); Lymphocytes Percent Auto 13.6 % (18.3-44.2); Mean Corpuscular HGB Conc 31.7 g/dl (32-36); Mean Corpuscular Hemoglobin 29.8 pg (26-34); Mean Corpuscular Volume 93.9 fl (80-100); Mean Platelet Volume 8.6 fl (7.4-10.4); Monocytes Absolute Auto 0.7 K/mm3 (0.1-0.6); Monocytes Percent Auto 11.6 % (2.6-8.5); Neutrophils Absolute Auto 4.5 K/mm3 (1.3-6.7); Nucleated Red Blood Cells Absolute Auto 0.1 K/mm3 (0.0-0.012); Platelet Count Result 342 k/mm3 (150-375); Red Blood Count 3.12 M/mm3 (4.2-5.4); Red Cell Distribution Width 15.8 % (11.5-14.5); White Blood Count 6.1 K/mm3 (4.5-10.0)
--- NOTE | 2019-09-14 11:02 | PC.NURSE ---
spoke with Prachi from hospitalist group today. updated her regarding nose bleed yesterday evening as well as results of stat CBC completed today as well as stat doppler of ble. Also let her know patient has a tentative discharge for today. Prachi stated she will see patient today. will continue to monitor.
--- NOTE | 2019-09-14 13:11 | WPDNEURORHBP ---
Subjective Date/time seen: 09/14/19 13:11 Interval history: this 83-year-old woman is here status post bipolar left hip replacement. She was initially on Arixtra however developed DVT which was treated with the Lovenox therapeutic dosages the patient improved and was to be discharged today however she has some nosebleed lower night and so I had to do the CBC which is stable I recheck the venous Doppler to make sure there is no extension of DVT and the the new test is negative for any DVT I have shared this information of the telephone conference with the daughter and the I have requested the surgeon to look at her breast hematoma prior to discharge have also requested the hospitalist to look at her in any event her hemoglobin is stable her venous Doppler is negative I am planning to discharge her later this afternoon and I will reconcile the medication once I figured out home knee dosages of Arixtra she will need post discharge She denies any headache nausea vomiting chest pain shortness of breath fever chills sore throat Review of Systems Review of Systems: All systems reviewed & are unremarkable except as noted in HPI and below Functional Status Ambulation Ability Ability to Ambulate 10 Feet: Standby Assistance Ability to Ambulate 50 Feet With 2 Turns: Standby Assistance Ambulation Assistive Devices: Walker, Wheeled Transfers Ability Ability to Transfer In/Out of Chair: Minimum Assistance X 1 Exam Const: General: comfortable and no acute distress HENMT: General nose exam: Normal nares present Mouth: Yes moist mucous membranes Eyes: General: appearance normal, both eyes and all related structures Neck: Neck: supple and no JVD Resp: Effort & Inspection: normal respiratory effort Auscultation: clear to auscultation bilaterally Cardio: Rate: regular rate Rhythm: regular rhythm GI: GI Palp: Yes Soft to palpation Auscultation: normal bowel sounds Skin: General skin exam: normal color and no rashes or lesions noted Neuro: Other: she is awake and alert were oriented times place and person has normal speech and language function is strength is normal the site of the hematoma is is stable the incision of the left bipolar replacement is clean overall she has improved Extrem: Other: incision is clean of course the hip movement are limited but she is weight-bearing as tolerated Objective Data Vital Signs Vital Signs: Vital Signs - 24 hr 09/13/19 14:00 09/13/19 17:54 09/13/19 20:45 Temperature 37.1 C 37.1 C Pulse Rate 74 78 Respiratory Rate 20 Blood Pressure 125/51 L Pulse Oximetry 96 09/13/19 22:00 09/14/19 06:00 09/14/19 08:39 Temperature 37.3 C Pulse Rate 77 70 70 Respiratory Rate 18 18 Blood Pressure 144/64 H 126/52 L Pulse Oximetry 95 94 Intake/Output Intake/Output: Intake & Output 09/11/19 09/12/19 09/13/19 09/14/19 23:59 23:59 23:59 23:59 Intake Total 1200 720 720 240 Balance 1200 720 720 240 Meds/Results Medications: Active Medications Generic Name Dose Route Start Last Admin Trade Name Freq PRN Reason Stop Dose Admin Acetaminophen 650 mg 09/06/19 14:25 09/13/19 17:54 Tylenol Tablet PO 650 mg Q4H PRN Administration Mild Pain (1-3) or Fever Amlodipine Besylate 10 mg 08/31/19 09:00 09/10/19 08:17 Norvasc PO 10 mg DAILY ABDULLAHI Administration Artificial Tears 1 drop 08/30/19 17:07 Artificial Tears EACH EYE PRN PRN Dry Eye(s) Calcium Carbonate 500 mg 08/31/19 09:00 09/14/19 08:40 Os-Oscar 500 +D Tablet PO 500 mg QAM ABDULLAHI Administration Cyclosporine 1 drop 08/30/19 21:00 09/14/19 08:40 Restasis EACH EYE 1 drop Q12HR ABDULLAHI Administration Docusate Sodium 100 mg 08/30/19 17:00 09/14/19 09:00 Colace Capsule PO 100 mg BID ABDULLAHI Administration Enoxaparin Sodium 74 mg 09/03/19 21:00 09/14/19 11:37 Lovenox SUB-Q Not Given Q12HR ABDULLAHI Fish Oil 1 gm 08/31/19 09:00 09/14/19 08:39 Lovaza PO 1 gm
[2019-09-14 14:00] VITALS: BP 136/64; PULSE 82; RESP 20; TEMP 36.4; O2SAT 97
--- NOTE | 2019-09-14 14:10 | PC.NURSE ---
call placed to Dr Saavedra's office to see if he was coming to see patient prior to discharge. Dr Saavedra's office returned call stating Dr Saavedra does not need to see patient prior to discharge and does not need to follow up after discharge.
--- NOTE | 2019-09-14 14:28 | PM.IMPN ---
Progress Note: A&P Assessment and Plan (1) Hematoma of left breast: Onset Date: ~09/03/19 Code(s): N64.89 - Other specified disorders of breast Status: Acute Assessment and Plan: Patient complains of left axillary discomfort. She has a large ecchymosis overlying the left axilla and left breast. She reports she had previously been wearing her gait belt positioned under her arms and had been lifted from that position. US of left breast performed 09/08 reveals 3.7 x 12 x 5.5 cm mass at 2:00 14 cm from the nipple. This is likely a hematoma given patient's Lovenox use. Suspect acute anemia is related to hematoma. Continue to monitor closely at discharge and plan for repeat CBC in 2 days outpatient. (2) Anemia: Qualifiers: Anemia type: unspecified type Qualified Code(s): D64.9 - Anemia, unspecified Code(s): D64.9 - Anemia, unspecified Status: Acute Assessment and Plan: Normocytic. Vitamin B12 and folate are sufficient. Patient was significantly anemic with HGB 6.9 and HCT 21.3 on 09/10/2019 and she was transfused 1 unit PRBC. This was more than likely related to hematoma. IFOB negative. She remained asymptomatic. Today, hemoglobin is 9.3 and Hct 29.3. Plan for repeat CBC in 2 days and follow-up with PCP outpatient. 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 Venous doppler US revealed acute thrombosis in the lower extremities bilaterally affecting the right common femoral and superficial femoral veins as well as the left profunda femoral vein. Therapeutic lovenox was initiated 09/03/19. CTA chest was negative for PE. She suffered a nosebleed yesterday evening. Venous doppler was repeated and reveals no evidence of DVT bilaterally. Hb was stable. I had an extensive discussion with the patient, her daughter, and Dr. Hernandez. She is at high risk for bleeding because she has suffered a hematoma to the left chest as well as nose bleeds. She is also at high risk for recurrent blood clots due to underlying malignancy and post-op status. The patient and her family have decided to proceed with low-dose arixtra and increased activity to reduce the risks for recurrent blood clots. They understand the risks of potentially life-threatening venous thromboembolism as well as the risks for bleeding including potentially life-threatening bleeding. All questions were answered. She will need repeat CBC in 2 days to monitor H & H and repeat venous doppler in 1 week. She was advised to monitor closely for sx of VTE and bleeding. (4) S/P ORIF (open reduction internal fixation) fracture: Code(s): Z98.890 - Other specified postprocedural states; Z87.81 - Personal history of (healed) traumatic fracture Status: Acute Assessment and Plan: She sustained a mechanical fall 08/23/19 and underwent left hemiarthroplasty by Dr. Mai on 08/24/19. She is currently receiving PT/OT at [facility] and progressing well. She has progressed well at [facility] and discharge is planned for today (5) Edema of lower extremity: Code(s): R60.0 - Localized edema Status: Acute Assessment and Plan: Patient has 2+ pitting edema in bilateral lower extremities. Likely due to combination of dependency, bilateral DVTs, and home Lasix being held since admission. She is postop left hip repair. She has a history of lower extremity edema and takes Lasix prn, which has been stopped since surgery. She was given 60 mg Lasix on 09/11. Resume home dose of 40 mg Lasix. She should continue this as needed outpatient for leg swelling. Continue NAOMIE wraps for leg compression (6) Hypothyroidism: Qualifiers: Hypothyroidis
--- NOTE | 2019-09-15 15:54 | DS_ITS ---
DATE OF DISCHARGE: 09/14/2019 DISCHARGE ACUTE REHABILITATION DIAGNOSIS: Bipolar left hip replacement with a history of lower extremity fracture as the primary rehab impairment category and etiological diagnosis of acute subcapital fracture of the left femur neck. DISCHARGE ACTIVE COMORBID CONDITIONS: 1. Chronic back pain with osteopenia. 2. Hypertension. 3. History of B-cell lymphoma. 4. Anxiety with depression. 5. GERD. 6. Hypertension. 7. Hypothyroidism. REASON FOR ADMISSION: An 83-year-old right-handed female with history of multiple problems as mentioned above presented to [facility] on 08/23/2019 subsequent to a fall at home. She fell backward, landed on her left hip and hit her head as well, though she did not become unconscious. She was brought by the EMS with the cervical collar on. CT of the head documented nonspecific cerebral white matter disease compatible with chronic small ischemic changes. CT of the cervical spine was negative except the severe cervical spondylosis. 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 The patient has had the left hip arthroplasty on 08/24/2019, was placed under 1 L of oxygen, subsequently weaned off. CT of the abdomen and pelvis documented superior endplate fracture of L1-L2 with left lower lobe atelectasis, a small effusion on the right side and a high density material in the gallbladder raising the possibility of sludge or stone, though nonobstructing and also moderate size hiatal hernia. Postoperatively, she complained of back pain, became anemic, developed hypertension, hyponatremia, and hypokalemia. She was started on steroid and has been on steroids at the time of the transfer as well. LEVEL OF FUNCTION AT THE TIME OF ADMISSION: The patient was independent in eating. She required setup for the oral hygiene, substantial assistance for toileting, bathing, partial assistance for upper body dressing. She was dependent for lower body dressing, footwear, partial assistance for rolling in bed, substantial assistance for sit to lying, lying to sit, partial assistance for sit to stand, substantial assistance for chair transfer, toilet transfer. She was unable to car transfer, unable to walk 10 feet, 50 feet with 2 turns, 150 feet, 10 feet on uneven surfaces, curb or step, 4 steps, 12 steps, and picking up objects, but she was independent for her wheelchair up to 150 feet. ANTICIPATED REHAB GOALS: Anticipated rehab goals at the time of admission were to make her independent eating, oral hygiene, toileting, require supervision for bathing, become independent upper body dressing, supervision for lower body dressing, footwear, become independent rolling in bed, sit to lying, lying to sitting, sit to stand, chair transfer, toilet transfer, and require only partial assistance for car transfer, become independent 10 feet, 50 feet walking with 2 turns, remain unstable for walking 150 feet, but become independent for 10 feet walking on uneven surfaces, require partial assistance for curb or step, 4 steps, remain dependent for 12 steps, but at least become independent for picking up object and wheelchair for 50 and 150 feet. LEVEL OF FUNCTION AT THE TIME OF DISCHARGE: The patient became independent eating and oral hygiene, required only supervision for toileting, bathing, upper body dressing and footwear, required partial assistance for lower body dressing, became independent rolling in bed, required supervision for sit to lying, lying to sitting, sit to stand, chair transfer, toilet transfer, required partial assistance for car transfer, supervisi
== END 2019-09-14 15:40 | disposition home health service (06) | DRG 560 ==
PROVIDERS: Family Medicine; Physician Assistant; Admitting Provider Psychiatry & Neurology Neurology; PCP Family Medicine Adolescent Medicine; Visit Provider Psychiatry & Neurology Neurology
DX: Z47.1 Aftercare following joint replacement surgery (principal); E87.1 Hypo-osmolality and hyponatremia; I82.413 Acute embolism and thrombosis of femoral vein, bilateral; Z96.642 Presence of left artificial hip joint; S22.080D Wedge compression fracture of T11-T12 vertebra, subsequent encounter for fracture with routine healing; S32.018D Other fracture of first lumbar vertebra, subsequent encounter for fracture with routine healing; S32.028D Other fracture of second lumbar vertebra, subsequent encounter for fracture with routine healing; N64.89 Other specified disorders of breast; S72.012D Unspecified intracapsular fracture of left femur, subsequent encounter for closed fracture with routine healing; D64.9 Anemia, unspecified; E03.9 Hypothyroidism, unspecified; E88.09 Other disorders of plasma-protein metabolism, not elsewhere classified; F41.8 Other specified anxiety disorders; G89.29 Other chronic pain; I10 Essential (primary) hypertension; K82.8 Other specified diseases of gallbladder; K21.9 Gastro-esophageal reflux disease without esophagitis; K57.90 Diverticulosis of intestine, part unspecified, without perforation or abscess without bleeding; M85.80 Other specified disorders of bone density and structure, unspecified site; M16.0 Bilateral primary osteoarthritis of hip; M47.812 Spondylosis without myelopathy or radiculopathy, cervical region; N20.0 Calculus of kidney; R90.82 White matter disease, unspecified; R06.89 Other abnormalities of breathing; Z85.72 Personal history of non-Hodgkin lymphomas; Z98.1 Arthrodesis status; W19.XXXD Unspecified fall, subsequent encounter
CPT/HCPCS: 36415; 36430; 71275; 76642; 80048; 82274; 82607; 82728; 82746; 83540; 83550; 83735; 84132; 84466; 85014; 85018; 85025; 85027; 86850; 86900; 86901; 86923; 93970; 97110; 97116; 97162; 97166; 97530; 97535; 97542; A9270; J1650; J1652; J7512; P9016; Q9967

== ENCOUNTER 2019-11-08 02:21 | Emergency (ER) | payer OTHER, SELFPAY ==
[2019-11-08 02:25] VITALS: BP 174/97; PULSE 81; RESP 16; TEMP 37.2; O2SAT 96
--- NOTE | 2019-11-08 02:51 | ED.EPISTAXIS ---
HPI - Epistaxis General Chief complaint: Epistaxis Stated complaint: nosebleed Time Seen by Provider: 11/08/19 02:31 History of Present Illness HPI Narrative: Patient presents with her daughter for bloody nose from the right nostril. Started a couple hours ago. He also had a bloody nose 2 weeks ago. Last 1 stop with pressure at home. She has not yet had packing. She not yet seen an ear nose and throat doctor. She is on blood thinners from her previous clots in her legs after she had hip surgery. She is walking well with her walker at home. She lives alone. She does not smoke, or drink alcohol. MD complaint: epistaxis Location: right nostril Onset (ago): hour(s) Duration: constant Context: history of previous and other anticoagulant use Associated symptoms: other (none) Treatment prior to arrival: nose pinching, head leaned forward and nasal clamp Related Data Home Medications Medication Instructions Recorded Confirmed Caltrate 600 plus D 1 tablet PO DAILY 08/23/19 08/30/19 Ocuvite with Lutein 1 tablet PO DAILY 08/23/19 08/30/19 Refresh Tears 1 drp OPHTHALMIC (EYE) PRN PRN 08/23/19 08/30/19 Restasis 1 drp OPHTHALMIC (EYE) Q12H 08/23/19 08/30/19 fluticasone propionate [Flonase 1 spray INTRANASAL DAILY 08/23/19 08/30/19 Allergy Relief] levothyroxine 75 mcg PO DAILY 08/23/19 08/30/19 losartan 100 mg PO DAILY 08/23/19 08/30/19 magnesium hydroxide 30 ml PO DAILY PRN 08/23/19 08/30/19 metoprolol tartrate 50 mg PO Q12H 08/23/19 08/30/19 omega-3 fatty acids 1,000 mg PO DAILY 08/23/19 08/30/19 pantoprazole 40 mg PO QAM 08/23/19 08/30/19 polyethylene glycol 3350 [Miralax] 17 g PO DAILY 08/23/19 08/30/19 prednisone 10 mg PO DAILY 08/23/19 08/30/19 trifluoperazine 2 mg PO DAILY 08/23/19 08/30/19 Allergies Allergy/AdvReac Type Severity Reaction Status Date / Time No Known Allergies Allergy Unverified 08/16/18 12:09 Review of Systems Review of Systems: Narrative: CONSTITUTIONAL: Denies fever, chills, or sweats. EYES: Denies visual changes, redness, or discharge. ENT: Denies rhinorrhea, congestion, sore throat, or otalgia. Just the nosebleed. CARDIOVASCULAR: Denies chest pain, palpitations, or edema. RESPIRATORY: Denies cough or dyspnea. GASTROINTESTINAL: Denies abdominal pain, nausea, vomiting, or diarrhea. GENITOURINARY: Denies dysuria or hematuria. SKIN: Denies rash or itching. MUSCULOSKELETAL: Denies back pain, joint pain, or myalgia. NEUROLOGIC: Denies headache, numbness, or weakness. . PMFSH Surgical History Surgical History Cataract extraction status H/O hemorrhoidectomy H/O kyphoplasty July 2018 History of bladder suspension procedure History of surgical removal of skin lesion History of tonsillectomy History of total left hip arthroplasty July 2019 S/P total hysterectomy and BSO (bilateral salpingo-oophorectomy) Social History Social History Social History: The patient initially work for [employer] before she had any children. She has 2 daughters. 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 She is . She desires to be a DNR. Lifelong nonsmoker and denies any alcohol or drug use. Her daughter Annie mayo is her durable power of associate attorney for healthcare. Smoking status: Never smoker Alcohol intake: never Substance use: never Additional living arrangements comments: Her daughter lives next her Gender identity (if verbalized by the patient): Female Spiritual care concerns: No Agree to blood products: Yes Exam Narrative: Exam Narrative: GENERAL: Well-appearing, well-nourished, with nasal clamp and blood on her face. Kyphosis. Short stature. HEAD: Normocephalic, atraumatic. EYES: PERRLA and EOMI. ENT: Nares blood flowing from the right nostril, and clot in the left nostril.
[2019-11-08 03:16] LABS: Basophils Percent Auto 0.4 % (0.2-1.2); Eosinophils Absolute Auto 0.1 K/mm3 (0-0.3); Eosinophils Percent Auto 1.2 % (0-4.4); Hematocrit 39.8 % (37.0-47.0); Hemoglobin 13.1 g/dL (12.0-15.0); Immature Granulocyte Absolute 0.02 K/mm3 (0.00-0.031); Immature Granulocyte Percent A 0.4 % (0-0.5); Lymphocytes Absolute Auto 1.04 K/mm3 (0.9-3.2); Lymphocytes Percent Auto 20.5 % (18.3-44.2); Mean Corpuscular HGB Conc 32.9 g/dl (32-36); Mean Corpuscular Hemoglobin 29.6 pg (26-34); Mean Corpuscular Volume 89.8 fl (80-100); Mean Platelet Volume 8.8 fl (7.4-10.4); Monocytes Absolute Auto 0.4 K/mm3 (0.1-0.6); Monocytes Percent Auto 8.3 % (2.6-8.5); Neutrophils Absolute Auto 3.5 K/mm3 (1.3-6.7); Neutrophils Percent Auto 69.2 % (45.5-73.1); Platelet Count Result 276 k/mm3 (150-375); Red Blood Count 4.43 M/mm3 (4.2-5.4); Red Cell Distribution Width 13.4 % (11.5-14.5); White Blood Count 5.1 K/mm3 (4.5-10.0)
[2019-11-08 03:25] LABS: INR 0.9; Prothrombin Time 12.3 Seconds (11.1-14.7)
[2019-11-08 03:27] LABS: Alanine Aminotransferase 14 U/L (4-35); Albumin Level 4.5 g/dL (3.5-5.1); Alkaline Phosphatase 74 U/L (38-126); Aspartate Amino Transferase 23 U/L (14-36); Bilirubin,Total 0.4 mg/dL (0.2-1.3); Blood Urea Nitrogen 23 mg/dL (7-17); Calcium 9.5 mg/dL (8.4-10.2); Carbon Dioxide 29 mmol/L (22-30); Chloride 96 mmol/L (98-107); Estimated Glomerular Filt Rate > 60; Glucose 113 mg/dL (65-105); Potassium 3.7 mmol/L (3.4-5.0); Sodium 135 mmol/L (137-145)
[2019-11-08 04:19] VITALS: BP 164/88; PULSE 76; RESP 19; TEMP 36.8; O2SAT 100
== END 2019-11-08 04:21 | disposition home or self-care (01) ==
LOC: ANHED 03:44
PROVIDERS: Emergency Provider Emergency Medicine; PCP Family Medicine Adolescent Medicine
DX: R04.0 Epistaxis (principal); D68.32 Hemorrhagic disorder due to extrinsic circulating anticoagulants; T45.515A Adverse effect of anticoagulants, initial encounter
CPT/HCPCS: 30901; 36415; 80053; 85025; 85610; 99283

== ENCOUNTER 2019-12-25 10:45 | Observation (INO) | payer OTHER, SELFPAY ==
[2019-12-25] VITALS (9 sets, daily range): BP systolic 115–164; BP diastolic 67–81; PULSE 53–68; RESP 12–16; TEMP 36.3–37.2; O2SAT 95–98; BMI 25.1
--- NOTE | ~2019-12-25 | CT_ITS ---
EXAMINATION: CT brain wo con DATE: 12/25/2019 11:23 INDICATION: Weakness TECHNIQUE: Computed tomography (CT) of the head was performed without intravenous contrast. Sagittal and coronal reconstructions were performed. The mA was adjusted according to patient size. Iterative reconstruction technique was employed. The dose-length product was 681.00 mGy-cm. COMPARISON: head CT dated 08/23/2019 FINDINGS: No significant interval change in moderate scattered white matter hypoattenuation consistent with chr onic small vessel ischemic disease. Old lacunar infarcts at the head of the left caudate nucleus and at the right lentiform nucleus. No acute intracranial hemorrhage, acute infarction or abnormal extra axial fluid collection. Symmetric prominence of the sulci consistent with mild age-appropriate diffus e cerebral volume loss. Ventricles are normal and symmetric. No mass/mass effect. Changes of bilatera l intraocular lens replacement. The orbits, paranasal sinuses and mastoid air cells are normal. IMPRESSION: 1. No acute intracranial process. 2. Small old lacunar infarcts at the head of the left caudate nucleus and at the right lentiform nucl eus. 3. Age-related changes including mild diffuse volume loss and moderate scattered white matter hypoatt enuation consistent with chronic small vessel ischemic disease. Reviewed, dictated and finalized at location A. IMPRESSION: 1. No acute intracranial process. 2. Small old lacunar infarcts at the head of the left caudate nucleus and at th e right lentiform nucleus. 3. Age-related changes including mild diffuse volume loss and moderate scattere d white matter hypoattenuation consistent with chronic small vessel ischemic di sease.
--- NOTE | ~2019-12-25 | CT_ITS ---
EXAMINATION: CT thoracic lumbar wo con DATE: 12/25/2019 12:00 INDICATION: Back pain post fall TECHNIQUE: Computed tomography (CT) of the thoracic and lumbar spine was performed without intravenou s contrast. Automated exposure control and iterative reconstruction technique were employed. The dose -length product was 1786.76 mGy-cm. COMPARISON: Chest CT dated 09/04/[address] abdomen and pelvis dated 08/25/2019 FINDINGS: Mild kyphosis and levoscoliosis centered at the thoracolumbar junction. Mild compensatory dextrocurva ture of the more cephalad thoracic spine. 6 mm anterolisthesis L4 on L5. Chronic burst fractures with 40% vertebral body height loss at T11 and L1 and with 80% central vertebral body height loss and kaveh nge of prior vertebroplasty at T12. The remaining thoracic and lumbar vertebral body heights are norm al. No acute fractures identified. Multilevel mild disc height loss in the thoracic spine from T3-T4 through T9-T10. 10 x 5 x 5 mm left paracentral disc extrusion at T7-T8 resulting in mild central canal stenosis. 7 x 8 x 8 [address] di sc extrusion at T8-T9 resulting in moderate central canal stenosis. Small central disc protrusion at T9-T10 resulting in mild central canal stenosis. T10-T11 mild disc bulge and minimal retropulsion paris ng the posterior margin of the superior endplate of T11 result in mild central canal stenosis. There is approximately 9 mm retropulsion at T12 resulting in moderate central canal stenosis. Moderate to severe bilateral facet osteoarthritis at T1-T2 through T3-T4. Mild facet osteoarthritis in the more c audal thoracic spine. Mild neural foraminal stenosis on the right at T10-T11. There are disc bulges a t L1-L2 through L5-S1 resulting in moderate central canal stenosis at L2-L3 and L3-L4 and mild centra l canal stenosis at the remaining levels. Severe facet osteoarthritis bilaterally at L3-L4 through L5 -S1 and mild bilateral facet osteoarthritis at L1-L2 and L2-L3. This results in moderate bilateral ne ural foraminal stenosis at L4-L5 and L5-S1 and mild neural from stenosis in the more cephalad lumbar spine. Respiratory motion in the lungs with dependent atelectasis in the bilateral lower lobes. Calcified no dules at the left lung base consistent with old granulomatous disease. Cardiomegaly with atherosclero tic coronary artery calcification is. No pericardial or pleural effusion. Small sliding-type hiatal h ernia. Prominent sigmoid diverticulosis without adjacent inflammatory change to suggest diverticuliti s. IMPRESSION: 1. No significant interval change in chronic T11-L1 burst fractures with change of prior vertebroplas ty at T12. 2. Mild to moderate thoracic and severe lumbar spondylosis. 3. Small sliding-type hiatal hernia. 4. Prominent sigmoid diverticulosis. Reviewed, dictated and finalized at location A. IMPRESSION: 1. No significant interval change in chronic T11-L1 burst fractures with change of prior vertebroplasty at T12. 2. Mild to moderate thoracic and severe lumbar spondylosis. 3. Small sliding-type hiatal hernia. 4. Prominent sigmoid diverticulosis.
--- NOTE | ~2019-12-25 | CT_ITS ---
EXAMINATION: CT cervical spine wo con DATE: 12/25/2019 12:00 INDICATION: Neck pain TECHNIQUE: Computed tomography (CT) of the cervical spine was performed without intravenous contrast. Automated exposure control and iterative reconstruction technique were employed. The dose-length pro duct was 141.89 mGy-cm. COMPARISON: 08/23/2019 FINDINGS: Unchanged 3 mm anterolisthesis C3 on C4 and 2 mm anterolisthesis C4 on C5. Reversal of the normal cer vical lordosis. Vertebral body heights are normal. No fracture. Severe disc height loss at C4-C5 thro ugh C6-C7. Mild disc height loss at C2-C3 and C3-C4. Posterior fusion across the bilateral C3-C4 face t joints. Possible early fusion across the right T1-T2 facet joint. No interval change in the severe cervical spondylosis including severe cervical facet and uncovertebral osteoarthritis. See prior repo rt for level by level analysis. Atherosclerotic calcific a cyst at the bilateral carotid bulbs. Cervi anayeli soft tissues are unremarkable. Minimal biapical pleural-parenchymal scarring. IMPRESSION: 1. No interval change in severe cervical spondylosis. No acute osseous abnormality. Reviewed, dictated and finalized at location A. IMPRESSION: 1. No interval change in severe cervical spondylosis. No acute osseous abnormal ity.
--- NOTE | ~2019-12-25 | XR_ITS ---
EXAMINATION: XR chest 2V DATE: 12/25/2019 11:29 INDICATION: 3-4 days of weakness TECHNIQUE: frontal and lateral views of the chest were obtained. COMPARISON: Chest radiograph dated 08/26/19 FINDINGS: Mild atelectasis in the bilateral lower lung zones. Calcified left lower lobe nodule at the posterior sulcus consistent with old granulomatous disease. No new airspace opacities, pulmonary edema, pleura l effusion or pneumothorax. Cardiomegaly. S-shaped thoracolumbar scoliosis. T11-L1 compression fractu res with prior vertebroplasty at T12. IMPRESSION: 1. Unchanged mild bibasilar atelectasis/scarring. No acute cardiopulmonary disease. Reviewed, dictated and finalized at location A. IMPRESSION: 1. Unchanged mild bibasilar atelectasis/scarring. No acute cardiopulmonary dise ase.
--- NOTE | ~2019-12-25 | US_ITS ---
EXAMINATION: US venous doppler [facility] DATE: 12/26/2019 10:42 INDICATION: Weakness. Back pain. TECHNIQUE: Grayscale ultrasound images without and with compression and Doppler ultrasound images of the bilateral lower extremity veins were obtained. COMPARISON: 09/14/2019 and 09/03/2019 FINDINGS: Noncompressible deep venous thrombosis in the right common femoral vein and proximal femoral vein. Th ere is appears similar in distribution to earlier study dated 09/03/2019. The visualized portions of ri ght profunda (deep) femoral vein, mid to distal femoral vein, popliteal vein, posterior tibial veins, peroneal veins, gastrocnemius vein and greater saphenous vein outflow are patent. Additional noncompressible deep venous thrombosis in the paired left peroneal veins in the proximal a spect of the paired left posterior tibial veins. The visualized portions of left common femoral vein, profunda femoral vein, femoral vein, popliteal vein, gastrocnemius vein and greater saphenous vein o utflow are patent. IMPRESSION: 1. Bilateral deep venous thrombosis above the knee on the right in the common femoral and proximal f emoral veins and below the knee on the left in the paired peroneal and proximal posterior tibial vein s. Findings were discussed with Jenelle Rojas, the nurse caring for the patient, at 1:40 PM. Reviewed, dictated and finalized at location A. IMPRESSION: 1. Bilateral deep venous thrombosis above the knee on the right in the common femoral and proximal femoral veins and below the knee on the left in the paired peroneal and proximal posterior tibial veins. Findings were discussed with Jenelle Rojas, the nurse caring for the patient, at 1:40 PM.
--- NOTE | 2019-12-25 10:40 | ED.WEAKNESS ---
HPI - Weakness General Chief complaint: Weakness Stated complaint: weakness Source: patient, family and EMS Mode of arrival: EMS Limitations: no limitations History of Present Illness HPI Narrative: Patient is an 84-year-old female who presents for evaluation of weakness. Patient reports a 3-day history of worsening weakness, feeling shaky and upper and lower extremities are reporting some increased weakness on the left side. Patient typically is able to ambulate with the use of a walker at home, and was able to previously complete most activities independently, but has acutely decompensated in the past 72 hours and has been unable to use her walker without falling. Patient's family states she had a fall 3 days ago, did hit her back on the back of the toilet, and has been experiencing back pain since that time. Patient denies any head trauma or loss of consciousness. No fever, chest pain, nausea or vomiting. No abdominal pain. No dysuria or hematuria. Patient has a history of left hip surgery, weakness is most on the left arm and left lower extremity. Related Data Home Medications Medication Instructions Recorded Confirmed Caltrate 600 plus D 1 tablet PO DAILY 08/23/19 08/30/19 Ocuvite with Lutein 1 tablet PO DAILY 08/23/19 08/30/19 levothyroxine 75 mcg PO DAILY 08/23/19 08/30/19 losartan 100 mg PO DAILY 08/23/19 08/30/19 metoprolol tartrate 50 mg PO Q12H 08/23/19 08/30/19 omega-3 fatty acids 1,000 mg PO DAILY 08/23/19 08/30/19 pantoprazole 40 mg PO BID 08/23/19 08/30/19 polyethylene glycol 3350 [Miralax] 17 g PO DAILY 08/23/19 08/30/19 prednisone 10 mg PO DAILY 08/23/19 08/30/19 trifluoperazine 2 mg PO DAILY 08/23/19 08/30/19 B-complex with vitamin C 1 tablet PO DAILY 11/10/19 cholecalciferol (vitamin D3) 25 25 mcg PO DAILY 11/10/19 mcg (1,000 unit) capsule amlodipine 12/25/19 biotin mcg PO 12/25/19 furosemide 80 mg PO DAILY 12/25/19 lysine [L-Lysine] 500 mg PO DAILY 12/25/19 [id number] 08/29/20 [Multivitamin 50 Plus] potassium chloride 10 meq PO DAILY 12/25/19 Allergies Allergy/AdvReac Type Severity Reaction Status Date / Time No Known Allergies Allergy Unverified 08/16/18 12:09 Review of Systems Review of Systems: Narrative: CONSTITUTIONAL: Denies fever, chills, or sweats. EYES: Denies visual changes, redness, or discharge. ENT: Denies rhinorrhea, congestion, sore throat, or otalgia. CARDIOVASCULAR: Denies chest pain, palpitations, or edema. RESPIRATORY: Denies cough or dyspnea. GASTROINTESTINAL: Denies abdominal pain, nausea, vomiting, or diarrhea. GENITOURINARY: Denies dysuria or hematuria. SKIN: Denies rash or itching. MUSCULOSKELETAL: Denies back pain, joint pain, or myalgia. 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 she was intolerate of radiation. 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 Chronic back pain Depression with anxiety Diverticulosis Eczema Epistaxis GERD (gastroesophageal reflux disease) Hypertension Hypothyroidism Osteopenia Surgical History Surgical History Cataract extraction status H/O hemorrhoidectomy H/O kyphoplasty July 2018 History of bladder suspension procedure History of surgical removal of skin lesion History of tonsillectomy History of total left hip arthroplasty July 2019 S/P total hysterectomy and BSO (bilateral salpingo-oophorectomy) Social History Social History Social History: The patient initially work for [employer] before she had any children. She has 2 daughters.
--- NOTE | 2019-12-25 10:48 | ECG_ITS ---
Measurements Intervals Peck Rate: 53 P: 13 NH: 168 QRS: -42 QRSD: 96 T: 0 QT: 431 QTc: 406 Interpretive Statements SINUS BRADYCARDIA LEFT AXIS DEVIATION INCOMPLETE RIGHT BUNDLE BRANCH BLOCK LEFT VENTRICULAR HYPERTROPHY AND ST-T CHANGE BORDERLINE R WAVE PROGRESSION, ANTERIOR LEADS BORDERLINE ST-T WAVE ABNORMALITY- ANTEROLATERAL LEADS BASELINE ARTIFACT- I, II, III, AVR, AVL, AVF, V2 BORDERLINE ECG Electronically Signed On 12-25-2019 11:57:20 CDT by Israel Martinez D.O.
[2019-12-25 11:11] LABS: Basophils Percent Auto 0.4 % (0.2-1.2); Eosinophils Absolute Auto 0.1 K/mm3 (0-0.3); Eosinophils Percent Auto 2.4 % (0-4.4); Hematocrit 39.5 % (37.0-47.0); Hemoglobin 12.8 g/dL (12.0-15.0); Immature Granulocyte Absolute 0.01 K/mm3 (0.00-0.031); Immature Granulocyte Percent A 0.2 % (0-0.5); Lymphocytes Absolute Auto 0.95 K/mm3 (0.9-3.2); Lymphocytes Percent Auto 20.6 % (18.3-44.2); Mean Corpuscular HGB Conc 32.4 g/dl (32-36); Mean Corpuscular Hemoglobin 28.4 pg (26-34); Mean Corpuscular Volume 87.6 fl (80-100); Mean Platelet Volume 8.6 fl (7.4-10.4); Monocytes Absolute Auto 0.6 K/mm3 (0.1-0.6); Monocytes Percent Auto 12.8 % (2.6-8.5); Neutrophils Absolute Auto 2.9 K/mm3 (1.3-6.7); Neutrophils Percent Auto 63.6 % (45.5-73.1); Platelet Count Result 242 k/mm3 (150-375); Red Blood Count 4.51 M/mm3 (4.2-5.4); Red Cell Distribution Width 13.2 % (11.5-14.5); White Blood Count 4.6 K/mm3 (4.5-10.0)
[2019-12-25 11:21] LABS: Prothrombin Time 12.8 Seconds (11.1-14.7)
[2019-12-25 11:22] LABS: Partial Thromboplastin Time 24.7 SECONDS (22.3-36.8)
[2019-12-25 11:23] LABS: Anion Gap 9 mmol/L (8-16); Blood Urea Nitrogen 16 mg/dL (7-17); Calcium 9.3 mg/dL (8.4-10.2); Carbon Dioxide 30 mmol/L (22-30); Chloride 96 mmol/L (98-107); Estimated Glomerular Filt Rate > 60; Glucose 108 mg/dL (65-105); Potassium 3.5 mmol/L (3.4-5.0); Sodium 135 mmol/L (137-145)
[2019-12-25 11:35] LABS: Troponin I < 0.012 ng/mL (0.000-0.034)
[2019-12-25] MEDS: SODIUM CHLORIDE 0.9% IV 1,000 ML 999 ML IV CONT (12:00)
[2019-12-25] MEDS: ACETAMINOPHEN 500 MG TABLET 1000 MG PO (13:21)
[2019-12-25 13:28] LABS: Add Urine Microscopic? YES; Appearance Urine Cloudy (Clear); Bacteria Urine Trace /hpf; Bilirubin Urine Negative (Negative); Blood Urine Negative (Negative); Color Urine Yellow (Yellow); Glucose Urine UA Negative (Negative); Ketones Urine Negative (Negative); Leukocyte Esterase Ur 1+ LEU/UL (Negative); Nitrate Urine Positive (Negative); Protein Urine Negative (Negative); RBC Urine 0-2 /hpf (0-2); Specific Grav Ur 1.008 (1.001-1.035); Urobilinogen Urine Negative mg/dL (<2.0)
--- NOTE | 2019-12-25 16:58 | ADMGEN ---
This patient, Haritha Howard, was admitted to 2 Medical Room 255-. Patient/family oriented to hospital policies and general routines including ID bracelet, bed and alarms, visiting hours, pain management, procedures, bathroom and other care routines, personal items, smoking policy, room service/diet, and visiting hours. Valuables list has been completed. Information on how to activate the Rapid Response Team has been discussed. Patient/Family are encouraged to report perceived risks to care and to ask questions if they do not understand what they are told or what they should do.
--- NOTE | 2019-12-25 22:40 | PM.IMHP ---
H&P: HPI History of Present Illness Date/Time: 12/25/19 22:40 Chief complaint: UTI, weakness Narrative: Haritha Howard is a 84 year old female Who lives home alone. She came to the emergency room to be evaluated for weakness. She has been getting weaker over the last 3 days. She has been feeling shaky and more weak on her left side. She can typically walk at home with a walker but she has been unable to ambulate at home with a walker. She does have some chronic compression fractures to her lumbar spine. Patient was also having some difficulty urinating and the ED physician spoke to the daughters about possibility of there being a central cord pathology year spinal cord pathology however the daughters did not want any intervention. The patient is a DNR. Therefore no neurosurgeon had been contacted. A Ordaz catheter was placed and patient was started on ceftriaxone for possible UTI. Patient has been complaining of lower back pain urinary retention and some lower extremity weakness. Her CT of the head shows small old lacunar infarcts at the head of the left caudate nucleus and at the right lentiform nucleus. Nothing acute. Chest x-ray was read by radiology is unchanged mild bibasilar atelectasis and scarring no acute cardiopulmonary disease. Cervical spine CT no interval change in severe cervical spondylosis nothing acute. As felt that the patient was dehydrated so IV fluids were started. She was given a Tylenol and started on ceftriaxone. Date of service is 12/25/2019 Review of Systems Review of Systems: All systems reviewed & are unremarkable except as noted in HPI and below Constitutional: Constitutional: Reports as per HPI and Reports no additional constitutional complaints Eyes: Eyes: Reports as per HPI and Reports no additional eye complaints ENT: Reports system reviewed and no additional complaints, except as documented and Reports Normal hearing present Cardiovascular: Cardiovascular: Reports no additional cardiovascular complaints Respiratory: Respiratory: Reports no additional respiratory complaints and Reports no additional respiratory complaints Gastrointestinal: Gastrointestinal: Reports as per HPI and Reports no additional gastrointestinal complaints Musculoskeletal: Musculoskeletal: Reports no additional musculoskeletal complaints Integumentary/Breasts: Skin/Breast: Reports system reviewed and no additional complaints, except as docu and Reports as per HPI Neurologic: Reports system reviewed and no additional complaints, except as documented, Reports as per HPI and Reports Normal hearing present Psychiatric: Psychiatric: Reports no additional psychiatric complaints and Reports as per HPI Endocrine: Endocrine: Reports no additional endocrine complaints Hematologic/Lymphatic: Hematologic/Lymphatic: Reports no additional hematologic/lymphatic complaints Allergic/Immunologic: Allergic/Immunologic: Reports no additional allergic/immunologic complaints [facility] Past Medical History Medical History (Updated 12/25/19 @ 22:59 by Mala Kaplan NP) Acute bilateral deep vein thrombosis (DVT) of femoral veins Anticoagulant causing adverse effect in therapeutic use B-cell lymphoma Diagnosis agree with IV fluid biopsy. she was intolerate of radiation. 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 Chronic back pain Depression with anxiety Diverticulosis Eczema Epistaxis GERD (gastroesophageal reflux disease) History of CVA (cerebrovascular accident) Hypertension Hypothyroidism Osteopenia S/P ORIF (open reduction internal fixation) fracture Surgical History Surgical History Cataract extraction status H/O hemorrhoidectomy H/O kyphoplasty July 2018 History of bladder suspension procedure History of surgical removal of skin lesion History of tonsillectomy History of t
[2019-12-25] MEDS: MORPHINE SULFATE 30 MG TABCR PO (23:46)
[2019-12-25] MEDS: METOPROLOL TARTRATE 50 MG TAB PO (23:46)
[2019-12-26] MEDS: LEVOTHYROXINE SODIUM 75 MCG TABLET PO (05:29)
[2019-12-26 05:30] VITALS: BP 162/64; PULSE 56; RESP 16; TEMP 37; O2SAT 92
[2019-12-26 06:15] LABS: Basophils Percent Auto 0.6 % (0.2-1.2); Eosinophils Absolute Auto 0.1 K/mm3 (0-0.3); Eosinophils Percent Auto 1.8 % (0-4.4); Hematocrit 35.7 % (37.0-47.0); Hemoglobin 11.5 g/dL (12.0-15.0); Immature Granulocyte Absolute 0.02 K/mm3 (0.00-0.031); Immature Granulocyte Percent A 0.4 % (0-0.5); Lymphocytes Absolute Auto 0.93 K/mm3 (0.9-3.2); Lymphocytes Percent Auto 18.8 % (18.3-44.2); Mean Corpuscular HGB Conc 32.2 g/dl (32-36); Mean Corpuscular Hemoglobin 27.9 pg (26-34); Mean Corpuscular Volume 86.7 fl (80-100); Mean Platelet Volume 9.1 fl (7.4-10.4); Monocytes Absolute Auto 0.6 K/mm3 (0.1-0.6); Monocytes Percent Auto 12.3 % (2.6-8.5); Neutrophils Absolute Auto 3.3 K/mm3 (1.3-6.7); Neutrophils Percent Auto 66.1 % (45.5-73.1); Platelet Count Result 228 k/mm3 (150-375); Red Blood Count 4.12 M/mm3 (4.2-5.4); Red Cell Distribution Width 13.2 % (11.5-14.5)
[2019-12-26 06:37] LABS: Alanine Aminotransferase 12 U/L (4-35); Albumin Level 3.7 g/dL (3.5-5.1); Alkaline Phosphatase 57 U/L (38-126); Anion Gap 4 mmol/L (8-16); Aspartate Amino Transferase 22 U/L (14-36); Bilirubin,Total 0.8 mg/dL (0.2-1.3); Blood Urea Nitrogen 12 mg/dL (7-17); Carbon Dioxide 28 mmol/L (22-30); Chloride 100 mmol/L (98-107); Estimated CRCL calculation 57 ml/min; Estimated Glomerular Filt Rate > 60; Glucose 91 mg/dL (65-105); Magnesium 2.1 mg/dL (1.6-2.3); Potassium 3.3 mmol/L (3.4-5.0); Sodium 132 mmol/L (137-145)
[2019-12-26 08:12] LABS: Thyroid Stimulating Hormone Reflex 0.781 uIU/mL (0.465-4.68)
[2019-12-26] MEDS: amLODIPine BESYLATE 5 MG TABLET 10 MG PO (08:25)
[2019-12-26] MEDS: predniSONE 10 MG TABLET PO (08:25)
[2019-12-26 08:26] VITALS: PULSE 84
[2019-12-26] MEDS: METOPROLOL TARTRATE 50 MG TAB PO ×2 (08:26→20:13)
[2019-12-26] MEDS: CHOLECALCIFEROL 1,000 UNITS TABLET 1000 UNITS PO (08:26)
[2019-12-26] MEDS: cycloSPORINE 0.4 ML OPHTH SOLUTION 1 DROP EACH EYE ×2 (08:26→16:17)
[2019-12-26] MEDS: LOSARTAN POTASSIUM 100 MG TABLET PO (08:26)
[2019-12-26] MEDS: VITAMIN B COMPLEX/VIT C CAPSULE 1 EACH PO (08:27)
[2019-12-26] MEDS: OPTI-GEN TAB 1 TABLET PO (08:27)
[2019-12-26] MEDS: PANTOPRAZOLE 40 MG TABLET PO ×2 (08:27→16:17)
[2019-12-26] MEDS: TRIFLUOPERAZINE HCL 1 MG TABLET 2 MG PO (08:27)
[2019-12-26] MEDS: polyethylene glycoL 3350 17 GM POWD.PACK PO (08:27)
[2019-12-26] MEDS: OMEGA 3 POLYUNSAT FATTY ACIDS 1 GM CAP PO (08:27)
[2019-12-26] MEDS: POTASSIUM CHLORIDE 10 MEQ TABLET.ER PO (08:27)
[2019-12-26] MEDS: MORPHINE SULFATE 30 MG TABCR PO ×2 (08:29→20:12)
--- NOTE | 2019-12-26 09:15 | PCOTNOTE ---
Attempted OT evaluation, but unable to complete at this time as RN advised to come back later. RN reported that patient is having a test to check for blood clots today. RN advised to wait until test results are back. Will attempt again later today.
--- NOTE | 2019-12-26 09:15 | PCPTNOTE ---
Orders received..patient is currently on bedrest, checking for blood clots...nursing suggests that therapy defer eval until later
[2019-12-26] MEDS: POTASSIUM CHLORIDE 10 MEQ TABLET PO (09:17)
[2019-12-26] MEDS: POTASSIUM CHLORIDE 20 MEQ TABLET PO (09:17)
[2019-12-26] MEDS: ACETAMINOPHEN 325 MG TABLET 650 MG PO ×2 (09:19→22:15)
--- NOTE | 2019-12-26 11:56 | PM.IMPN ---
Progress Note: A&P Assessment and Plan (1) Weakness: Code(s): R53.1 - Weakness Status: Acute Assessment and Plan: Thoracic/lumbar spine CT shows concern for central canal stenosis and she may have possible spinal cord compression as she has new-onset urinary retention and weakness. CT brain also shows evidence of small old lacunar infarcts at the head of the left caudate nucleus and right lentiform nucleus which are new compared to CT brain from 07/2019. The ED physician spoke with the patient and her daughters about the concern for possible spinal cord compression. Her daughters did not want to pursue further evaluation for this and did not want the patient transferred for a neurosurgical evaluation. I discussed that we could perform brain as well as spine MRIs but the patient and her daughters do not want to perform further testing or intervention and are considering hospice care. Care coordination is on board and has placed referrals. (2) Acute UTI: Code(s): N39.0 - Urinary tract infection, site not specified Status: Acute Assessment and Plan: UA is suspicious for UTI with positive nitrates, 1+ leukocyte esterase, 10-15 WBC. Continue IV ceftriaxone. Urine culture is pending. Ordaz is in place due to urinary retention. (3) Depression with anxiety: Code(s): F41.8 - Other specified anxiety disorders Status: Chronic Assessment and Plan: Continue trifluoperazine. (4) Hypertension: Qualifiers: Hypertension type: essential hypertension Qualified Code(s): I10 - Essential (primary) hypertension Code(s): I10 - Essential (primary) hypertension Status: Chronic Assessment and Plan: Blood pressures were reviewed and are elevated. This may be due to pain. Continue losartan, metoprolol, amlodipine, and furosemide. Continue to monitor. (5) Hypothyroidism: Qualifiers: Hypothyroidism type: unspecified Qualified Code(s): E03.9 - Hypothyroidism, unspecified Code(s): E03.9 - Hypothyroidism, unspecified Status: Chronic Assessment and Plan: TSH was 0.781. Continue levothyroxine. 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 (7) Anticoagulant causing adverse effect in therapeutic use: Qualifiers: Encounter type: initial encounter Qualified Code(s): T45.515A - Adverse effect of anticoagulants, initial encounter Code(s): T45.515A - Adverse effect of anticoagulants, initial encounter Status: Acute Assessment and Plan: She suffered a large, traumatic left breast hematoma while on therapeutic lovenox for the treatment of DVT following left hemiarthroplasty. She also developed significant nose bleeds so her anticoagulant was discontinued as she is at very high risk for bleeding. 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 (9) History of CVA (cerebrovascular accident): Code(s): Z86.73 - Personal history of transient ischemic attack (TIA), and cerebral infarction without residual deficits Status: Chronic Assessment and Plan: Visualized on CT brain. ASA would be recommended but they family wants to avoid antiplatelets/anticoagulants and is considering hospice. (10) DVT (deep venous thrombosis): Code(s): I82.409 - Acute embolism and thrombosis of unspecified deep veins of unspecified lower extremity Status: Acute
--- NOTE | 2019-12-26 13:10 | PCOTNOTE ---
Attempted OT evaluation again, but unable to complete as RN reported that ultrasound has been completed, but not read yet. Will attempt again later.
[2019-12-26 14:00] VITALS: BP 142/67; PULSE 64; RESP 18; TEMP 36.9; O2SAT 92
--- NOTE | 2019-12-26 14:37 | PCOTNOTE ---
Attempted OT evaluation, but unable to complete at this time. Per special agent in charge, blood clots found on ultrasound. Will follow-up again tomorrow.
--- NOTE | 2019-12-26 14:38 | PCPTNOTE ---
Orders received on this patient...after doppler ultrasound, multiple DVT's found, therapy declined today by Jenelle Villalta, [employer] nurse
--- NOTE | 2019-12-26 14:39 | PCPTNOTE ---
Had checked on this patient earlier today x 2, but doppler results were not available until recently
[2019-12-26 20:11] VITALS: BP 152/88; PULSE 65; RESP 16; TEMP 37.2; O2SAT 93
[2019-12-26 20:13] VITALS: PULSE 62
[2019-12-27 06:11] VITALS: TEMP 37.9
[2019-12-27] MEDS: ACETAMINOPHEN 325 MG TABLET 650 MG PO ×2 (06:11→13:43)
[2019-12-27] MEDS: LEVOTHYROXINE SODIUM 75 MCG TABLET PO (06:12)
[2019-12-27 06:13] VITALS: BP 137/72; PULSE 59; RESP 18; TEMP 37.9; O2SAT 90
[2019-12-27 06:19] LABS: Potassium 3.4 mmol/L (3.4-5.0)
[2019-12-27 07:36] VITALS: TEMP 37.4
[2019-12-27 07:59] LABS: Basophils Percent Auto 0.4 % (0.2-1.2); Eosinophils Absolute Auto 0.1 K/mm3 (0-0.3); Eosinophils Percent Auto 2.4 % (0-4.4); Hematocrit 37.2 % (37.0-47.0); Hemoglobin 12.1 g/dL (12.0-15.0); Immature Granulocyte Absolute 0.02 K/mm3 (0.00-0.031); Immature Granulocyte Percent A 0.4 % (0-0.5); Lymphocytes Absolute Auto 0.87 K/mm3 (0.9-3.2); Lymphocytes Percent Auto 18.8 % (18.3-44.2); Mean Corpuscular HGB Conc 32.5 g/dl (32-36); Mean Corpuscular Hemoglobin 28.1 pg (26-34); Mean Corpuscular Volume 86.5 fl (80-100); Monocytes Absolute Auto 0.6 K/mm3 (0.1-0.6); Monocytes Percent Auto 13.4 % (2.6-8.5); Neutrophils Percent Auto 64.6 % (45.5-73.1); Platelet Count Result 217 k/mm3 (150-375); Red Cell Distribution Width 13.2 % (11.5-14.5); White Blood Count 4.6 K/mm3 (4.5-10.0)
[2019-12-27 08:11] LABS: Anion Gap 5 mmol/L (8-16); Blood Urea Nitrogen 15 mg/dL (7-17); Calcium 9.2 mg/dL (8.4-10.2); Carbon Dioxide 27 mmol/L (22-30); Chloride 100 mmol/L (98-107); Estimated CRCL calculation 48 ml/min; Estimated Glomerular Filt Rate > 60; Glucose 91 mg/dL (65-105); Potassium 3.4 mmol/L (3.4-5.0); Sodium 132 mmol/L (137-145)
[2019-12-27] MEDS: CHOLECALCIFEROL 1,000 UNITS TABLET 1000 UNITS PO (09:01)
[2019-12-27] MEDS: cycloSPORINE 0.4 ML OPHTH SOLUTION 1 DROP EACH EYE (09:01)
[2019-12-27] MEDS: TRIFLUOPERAZINE HCL 1 MG TABLET 2 MG PO (09:01)
[2019-12-27] MEDS: MORPHINE SULFATE 30 MG TABCR PO (09:01)
[2019-12-27] MEDS: OPTI-GEN TAB 1 TABLET PO (09:01)
[2019-12-27] MEDS: polyethylene glycoL 3350 17 GM POWD.PACK PO (09:01)
[2019-12-27] MEDS: OMEGA 3 POLYUNSAT FATTY ACIDS 1 GM CAP PO (09:01)
[2019-12-27] MEDS: LOSARTAN POTASSIUM 100 MG TABLET PO (09:02)
[2019-12-27 09:05] VITALS: PULSE 72
[2019-12-27] MEDS: PANTOPRAZOLE 40 MG TABLET PO (09:05)
[2019-12-27] MEDS: FUROSEMIDE 40 MG TABLET PO (09:05)
[2019-12-27] MEDS: METOPROLOL TARTRATE 50 MG TAB PO (09:05)
[2019-12-27] MEDS: POTASSIUM CHLORIDE 10 MEQ TABLET.ER PO (09:06)
[2019-12-27] MEDS: VITAMIN B COMPLEX/VIT C CAPSULE 1 EACH PO (09:06)
[2019-12-27] MEDS: predniSONE 10 MG TABLET PO (09:07)
[2019-12-27] MEDS: amLODIPine BESYLATE 5 MG TABLET 10 MG PO (09:07)
[2019-12-27 13:52] VITALS: BP 132/69; PULSE 58; RESP 16; TEMP 36.7; O2SAT 92
--- NOTE | 2019-12-27 14:15 | PM.DS ---
DS: Admitting Diagnosis Admitting Diagnosis Admitting Diagnosis: UTI, weakness DS: Discharge Diagnosis Discharge Diagnosis (1) Weakness: Code(s): R53.1 - Weakness Status: Acute Assessment and Plan: Discharge Summary (Date of service 12/27/19): Mrs. Howard is an 84 y.o. female with PMH significant for B-cell lymphoma, chronic back pain, HTN, hypothyroidism, left hip fracture 07/2019 complicated by DVT, and adverse bleeding reactions on anticoagulation who presented to the emergency department for the evaluation of weakness. She reported a fall 3 days prior. During the fall, she sustained trauma to her thoracic spine and was unable to ambulate approximately 3 days after the fall. She reported LUE weakness and paresthesias as well. She also reported urinary retention. Thoracic/lumbar spine CT was performed in the emergency department. There was concern for central canal stenosis/possible spinal cord compression due to new-onset urinary retention and weakness. 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 The ED physician spoke with the patient and her daughters about the concern for possible spinal cord compression and recommended transfer for a neurosurgical evaluation. The patient and her daughters did not want to pursue further evaluation for this and did not want the patient transferred for a neurosurgical evaluation as the patient adamantly refused any possible surgical intervention should she have spinal cord compression. The daughters were in agreement to not pursue any further intervention or evaluation for this. I discussed my concerns for possible stroke with the patient and her daughters and recommended MRI. The patient reported having significant, chronic low back pain for several years which continued to worsen. She did not want to pursue MRI and expressed interest in hospice care. Her daughters spoke with her and they all agreed to pursue hospice. They elected for [facility]. She was also treated for a UTI. Venous doppler US was positive for DVT but the patient and her daughters did not want to start an anticoagulant due to her hx of bleeding complications. She was discharged home with hospice on the afternoon of 12/27/19. (2) Acute UTI: Code(s): N39.0 - Urinary tract infection, site not specified Status: Acute Assessment and Plan: UA is suspicious for UTI with positive nitrates, 1+ leukocyte esterase, 10-15 WBC. She was treated with IV ceftriaxone initially. Final urine culture demonstrated klebsiella oxytoca susceptible to ceftriaxone. She was discharged home on PO cefdinir. (3) Depression with anxiety: Code(s): F41.8 - Other specified anxiety disorders Status: Chronic Assessment and Plan: Trifluoperazine was continued. (4) Hypertension: Qualifiers: Hypertension type: essential hypertension Qualified Code(s): I10 - Essential (primary) hypertension Code(s): I10 - Essential (primary) hypertension Status: Chronic Assessment and Plan: Blood pressures were reviewed and are elevated, likely due to pain. Losartan, metoprolol, amlodipine, and furosemide were continued. (5) Hypothyroidism: Qualifiers: Hypothyroidism type: unspecified Qualified Code(s): E03.9 - Hypothyroidism, unspecified Code(s): E03.9 - Hypothyroidism, unspecified Status: Chronic Assessment and Plan: TSH was 0.781. Levothyroxine was continued. 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 (7) Anticoagulant causing adverse effect in therapeutic use: Q
== END 2019-12-27 17:10 | disposition hospice, home (50) ==
LOC: ANHED 13:42 → ANH2MED 14:20
PROVIDERS: Nurse Practitioner; Physician Assistant; Admitting Provider Family Medicine; Emergency Provider Emergency Medicine; PCP Family Medicine Adolescent Medicine; Visit Provider Internal Medicine
DX: N39.0 Urinary tract infection, site not specified (principal); R33.9 Retention of urine, unspecified; I82.411 Acute embolism and thrombosis of right femoral vein; T45.515A Adverse effect of anticoagulants, initial encounter; F41.8 Other specified anxiety disorders; R53.1 Weakness; E03.9 Hypothyroidism, unspecified; C88.4 Extranodal marginal zone B-cell lymphoma of mucosa-associated lymphoid tissue [MALT-lymphoma]; I10 Essential (primary) hypertension; D64.9 Anemia, unspecified; Z86.73 Personal history of transient ischemic attack (TIA), and cerebral infarction without residual deficits; Z66 Do not resuscitate; Z79.899 Other long term (current) drug therapy
CPT/HCPCS: 36415; 51701; 51702; 70450; 71046; 72125; 72128; 72131; 80048; 80053; 81001; 82728; 83735; 84132; 84443; 84484; 85025; 85610; 85730; 87040; 87077; 87086; 87088; 87186; 93005; 93970; 96361; 96365; 96366; 99285; A9270; G0378; J0696; J7030; J7512